=== PATIENT | male | born 1980 | race Caucasian/White ===

== ENCOUNTER 2017-09-08 12:11 | Inpatient (IN) | payer OTHER ==
[~2017-09-08] VITALS: Ht 185.4 cm; Wt 163.3 kg
--- NOTE | 2017-09-08 12:38 | ED DYSPNEA/ASTHMA COMPLAINT ---
History of Present Illness General Chief Complaint: Dyspnea (COPD, CHF, Other) Stated Complaint: SOB Source: patient, family, old records Exam Limitations: no limitations Vital Signs & Intake/Output Vital Signs & Intake/Output Vital Signs Date Time Temp Pulse Resp B/P B/P Pulse O2 O2 Flow FiO2 Mean Ox Delivery Rate 09/10 0638 98.4 63 20 160/80 94 Room Air 09/10 0000 Nasal 3.0L Cannula 09/09 2227 71 138/68 09/09 2226 71 138/68 09/09 2216 98.7 71 20 138/68 92 Nasal Cannula 09/09 1919 94 Nasal 3.0L Cannula 09/09 1600 96 Nasal 3.0L Cannula 09/09 1448 98.7 84 20 140/80 92 Nasal 3.0L Cannula 09/09 1102 Nasal 3.0L Cannula 09/09 1059 68 150/68 09/09 1059 68 150/68 09/09 1059 68 150/68 09/09 1058 68 150/60 09/09 1054 94 Nasal 3.0L Cannula 09/09 0800 94 Nasal 3.0L Cannula ED Intake and Output 09/10 0000 09/09 1200 Intake Total 730 200 Output Total 800 Balance -70 200 Intake, IV 250 0 Intake, Oral 480 200 Number 1 1 Bowel Movements Output, Urine 800 Allergies Coded Allergies: No Known Allergies (09/08/17) Triage Note: PT BIBA FROM CLINIC STATES HE HAS THE FLU, FEVER COUGHING AND DIARRHEA SINCE THURSDAY NIGHT. PT REPORTS SOB AND FLUID "ON MY RIGHT LUNG AND EVERYWHERE" FOR THE LAST COUPLE OF YEARS. MASK PLACED ON PT AT TRIAGE. Triage Nurses Notes Reviewed? yes Onset: Abrupt Duration: day(s): (3), constant Timing: recent history Severity: moderate Activities at Onset: none Associated Symptoms: cough, edema, fever HPI: 37-year-old male history of diabetes presents to ER for evaluation with family brought in by ambulance. For the past 3 days he has had subjective fever chills nonproductive cough shortness of breath and diarrhea. He was diagnosed with the flu today however did not have a flu swab performed. He denies any chest pain however reports the shortness of breath worse after coughing no pain with inspiration. No history of smoking asthma or COPD the patient states she's been following up as an outpatient with his primary care physician after was found incidentally that he had bilateral pleural effusions. No recent travel or immobility he denies abdominal pain nausea or vomiting. (Rafael Hinkle) Reconcile Medications Amlodipine Besylate 10 MG TABLET 1 TAB PO DAILY HTN (Reported) Atorvastatin Calcium (Lipitor) 80 MG TABLET 1 TAB PO DAILY Cholesterol ( Reported) Furosemide (Lasix) 40 MG TABLET 1 TAB PO DAILY fluid overload (Reported) Glipizide (Glipizide ER) 10 MG TAB.ER.24 1 TAB PO DAILY DM (Reported) Hydralazine HCl 100 MG TABLET 1 TAB PO BID htn (Reported) Insulin Glargine,Hum.rec.anlog (Lantus Solostar) 100 UNIT/ML (3 ML) INSULN.PEN 20 UNIT SC QPM DM (Reported) Lisinopril 40 MG TABLET 1 TAB PO DAILY BP (Reported) Metformin HCl 500 MG TABLET 1 TAB PO DAILY HTN (Reported) Metoprolol Tartrate (Lopressor) 100 MG TABLET 1 TAB PO BID HTN (Reported) Sodium Bicarbonate 650 MG TABLET 1 TAB PO BID Hyponatremia (Reported) (Bronwyn BEARD,Dustin Yan) Past History Travel History Traveled to [place] past 21 day No Medical History Any Pertinent Medical History? see below for history EENT: RETINOPOTHY Cardiovascular: hypertension Renal: STAGE 3 RENAL DISEASE Endocrine: DM Surgical History Surgical History: none Psychosocial History What is your primary language Macedonian Tobacco Use: Never used ETOH Use: denies use Illicit Drug Use: denies illicit drug use Family History Hx Contributory? No (Rafael Hinkle) Review of Systems Review of Systems Constitutional: Reports: see HPI, fever. Comments Review of systems: See HPI, All other systems negative. Constitutional, chills fever, no malaise no weight loss HEENT: no sore throat no congestion, no ear pain Cardiovascular: No chest pain , no palpitation Skin: no rashes, no change in skin Respiratory: dyspnea cough no sputum no hemoptysis GI: No nausea no vomiting, diarrhea, no bloating/constipation : No dysuria No hematuria, no frequency Muscle skeletal: No joint pain, no back pain Neurologic: , no headache Heme/endocrine: No bruising Immunology: No lymphadenopathy (Rafael Hinkle) Physical Exam Physical Exam General Appearance: well developed/nourished, awake Respiratory: wheezing Comments: Obese male in moderate acute distress HEENT: Normal EENT exam; PERRL, EOMI. HEAD is atraumatic. moist mucous membranes. Neck: Supple,normal range of motion Back: Nontender, no CVA tenderness. Full range of motion Cardiovascular: Regular rate and rhythms no murmurs rub Respiratory: Chest nontender.There were no bony deformities, no asymmetry. No respiratory distress. Patient speaking in full complete sentences. Crackles to bilateral bases no wheezing Abdomen: Soft, morbidly obese nontender nondistended Extremity: 4+ bilaterally edema b/l, to the right lateral foot there is an open sore with surrouding erythema, no discharge noted, full range of motion of extremities, normal and equal pulses bilaterally, 5 out of 5 strength noted to bilateral upper and lower extremities Neuro: Alert oriented x3, motor sensory normal, There were no obvious focal neurologic abnormalities. Skin: No appreciable rash on exposed skin, skin is warm and dry. Psych: Mood and affect is normal, memory and judgment is normal. Core Measures ACS in differential dx? Yes CVA/TIA Diagnosis No Sepsis Present: No Sepsis Focused Exam Completed? No (Efraín BELCHER,Rafael) Progress Differential Diagnosis: asthma, bronchitis, CHF, COPD, pneumonia, unstable angina Plan of Care: Orders Procedure Date/time Status Nothing by Mouth 09/10 B Active US-THORACENTESIS 09/10 0600 Active PLEURAL PH (GEN) 09/10 0600 Active CULTURE,BODY FLUID 09/10 0600 Active PROTHROMBIN TIME 09/10 0600 Active PHOSPHORUS 09/10 0600 Active MAGNESIUM 09/10 0600 Active HEPATIC FUNCTION PANEL 09/10 0600 Active GLYCOSYLATED HGB 09/10 0600 Active CYTOLOGY SPECIMEN 09/10 0600 Active CBC WITHOUT DIFFERENTIAL 09/10 0600 Active CALCIUM 09/10 0600 Active BODY FLUID LDH 09/10 0600 Active BODY FLUID CELL COUNT 09/10 0600 Active BODY FLUID GLUCOSE 09/10 0600 Active BODY FLUID CHOLESTEROL 09/10 0600 Active BASIC ELECTROLYTES PLUS BUN&CR 09/10 0600 Active NEUTRO CYTO ANTIBODY Ref$ 09/10 0600 Active Lab Add-on Test 09/10 UNK Active LOWER RESPIRATORY CULTURE 09/09 1536 Active URINE LYTES, SPOT 09/09 1458 Active PROTHROMBIN TIME 09/09 1454 Complete ECHOCARDIOGRAM 09/09 1409 Active URINALYSIS 09/09 1215 Complete RT: Evaluation 09/09 1053 Active CREATINE PHOSPHOKINASE 09/09 0900 Complete THERAPIST ORDERS 09/09 UNK Complete OXYGEN SETUP (GEN) 09/09 UNK Complete Lab Add-on Test 09/09 UNK Active Nursing Misc 09/09 UNK Active Current Medications Sig/Jozef Start time Last Medication Dose Stop Time Status Admin Silver Sulfadiazine 1 MARLON DAILY 09/10 1000 AC (Silvadene Cream 50GM ) Albuterol Sulfate 3 ML BID 09/09 2200 AC 09/09 (Proventil) 1919 Atorvastatin Calcium 80 MG 1700 09/09 1700 AC 09/09 (Lipitor) 1558 Amlodipine Besylate 10 MG DAILY 09/09 1000 AC 09/09 (Norvasc) 1059 Azithromycin 500 MG DAILY 09/09 1000 AC 09/09 (Zithromax) 1101 Dextrose/Water 250 ML (D5W) Calcium/Vitamin D 500 MG DAILY 09/09 1000 AC 09/09 (Oscal-D 500MG 1058 (Osyter Shell)) Ceftriaxone Sodium 1,000 MG DAILY 09/09 1000 AC 09/09 (Rocephin) 1100 Insulin Aspart 0 TIDAC 09/09 0800 AC 09/09 (NovoLOG) 0837 Hydralazine HCl 100 MG BID 09/08 2200 AC 09/09 (Apresoline) 2227 Insulin Aspart 0 AT BEDTIME 09/08 2200 AC 09/08 (NovoLOG) 2155 Insulin Detemir 10 UNITS QPM 09/08 2200 AC 09/09 (Levemir) 2227 Metoprolol Tartrate 100 MG BID 09/08 2200 AC 09/09 (Lopressor) 2226 Sodium Bicarbonate 650 MG BID 09/080 AC 09/09 (Sodium Bicarb 325MG 2226 Tab) Laboratory Tests 09/09/17 1605: PT 11.6, INR 1.06 09/09/17 1435: Urine Color YEL, Urine Clarity HAZY H, Urine pH 6.0, Ur Specific Tully 1.025, Urine Protein >=300 H, Urine Ketones NEG, Urine Nitrite NEG, Urine Bilirubin NEG, Urine Urobilinogen 0.2, Ur Leukocyte Esterase NEG, Ur Microscopic SEDIMENT EXAMINED, Urine RBC RARE, Urine WBC RARE, Urine Bacteria PACKD H, Hyaline Casts 1-3 H, Granular Casts 5-10 H, Urine Hemoglobin SMALL H, Urine Glucose 500 H 09/09/17 0900: Anion Gap 11, Estimated GFR 23 L, BUN/Creatinine Ratio 16.8, Total Bilirubin 0.2, Direct Bilirubin 0.2, AST 80 H, ALT 45, Alkaline Phosphatase 67, Creatine Kinase 2832 H, Total Protein 5.5 L, Albumin 2.4 L, CBC w Diff NO MAN DIFF REQ , RBC 3.61 L, MCV 87.7, MCH 28.8, MCHC 32.9 L, RDW 13.4, MPV 9.2, Gran % 79.6 H, Lymphocytes % 10.1 L, Monocytes % 10.2 H, Eosinophils % 0, Basophils % 0.1, Absolute Granulocytes 5.0, Absolute Lymphocytes 0.6 L, Absolute Monocytes 0.6, Absolute Eosinophils 0, Absolute Basophils 0 Microbiology 09/10 0600 BODY FLUID: Body Fluid Culture - COLB 09/10 0600 BODY FLUID: Gram Stain - COLB 09/09 1536 LOWER RESP: Respiratory Culture - COLB 09/09 1536 LOWER RESP: Gram Stain - COLB Labs ordered old records read patient medicated with Lasix, Solu-Medrol breathing treatment with improvement in breathing On repeat evaluation patient reports improvement in breathing pending ultrasound patient has been extremely difficult blood draw Rocephin azithromycin ordered discussed with Dr. Barnhart agrees with plan Discussed with the patient and his father all his labs old records reviewed patient's last creatinine was 1.8 CASE D/W DR COREA WILL ADMIT Diagnostic Imaging: Viewed by Me: Radiology Read, Ultrasound. Discussed w/RAD: Radiology Read, Ultrasound. Radiology Impression: PATIENT: ERIC STEVENS PRESENT AGE: 37 PATIENT ACCOUNT NO: [id number] : 79 LOCATION: [facility] ORDERING PHYSICIAN: Rafael BELCHER SERVICE DATE: 09/08/17 EXAM TYPE: US - US-EXT BILAT VENOUS DOPPLER EXAMINATION: BILATERAL LOWER EXTREMITY DEEP VENOUS ULTRASOUND CLINICAL INFORMATION: Shortness of breath and leg swelling COMPARISON : No similar prior examinations are available for comparison. TECHNIQUE: Duplex Doppler imaging with compression maneuvers were performed of the bilateral lower extremity deep venous systems. Examination mildly limited secondary to patient body habitus. FINDINGS: The bilateral visualized common femoral, femoral and popliteal veins demonstrate normal compressibility and color flow without evidence of venous thrombosis. Visualized portions of the bilateral calf veins demonstrate normal color fill-in suggesting patency. There is no evidence of a Kan's cyst. IMPRESSION: No evidence of deep venous thrombosis involving the bilateral lower extremities. DICTATED BY: Luis Alonso MD DATE/TIME DICTATED: 09/08/171511 JEWISH THOUGHT PROFESSOR:BRIANNA DATE/TIME TRANSCRIBED:09/08/171511 CONFIDENTIAL, DO NOT COPY WITHOUT APPROPRIATE AUTHORIZATION. <Electronically signed in Other Vendor System> SIGNED BY: Luis Alonso MD 09/08/171516, PATIENT: ERIC STEVENS PRESENT AGE: 37 PATIENT ACCOUNT NO: [id number] : 79 LOCATION: [facility] ORDERING PHYSICIAN: Rafael BELCHER SERVICE DATE: 09/08/17 EXAM TYPE: RAD - XRY-PORTABLE CHEST XRAY EXAMINATION: XR PORTABLE CHEST CLINICAL INFORMATION: Shortness of breath, fever, and cough COMPARISON: Chest x-ray 08/12/[address] 08/20/2017. TECHNIQUE: Portable frontal view of the chest was obtained. FINDINGS: Worsening bibasilar and left midlung consolidation with possible associated pleural effusions. There is central vascular congestion. Cardiac silhouette is enlarged and unchanged. No pneumothorax. No acute osseous findings. IMPRESSION: Worsening bibasilar and left midlung consolidation concerning for multifocal pneumonia in light of the clinical history. Possible small pleural effusions. Radiographic follow-up recommended to document resolution. DICTATED BY: Dustin Bui MD DATE/TIME DICTATED:09/08/171436 JEWISH THOUGHT PROFESSOR:BRIANNA DATE/TIME TRANSCRIBED:1436 CONFIDENTIAL, DO NOT COPY WITHOUT APPROPRIATE AUTHORIZATION. < Electronically signed in Other Vendor System> SIGNED BY: Dustin Bui MD 09/08/17 1443 Initial ED EKG: normal intervals, normal p-waves, normal QRS complex, normal sinus rhythm (70) Rhythm Strip: normal sinus rhythm (Rafael Hinkle) Departure Departure Time of Disposition: 1627 Disposition: STILL A PATIENT Condition: Stable Clinical Impression Primary Impression: Pneumonia Secondary Impressions: Acute on chronic renal insufficiency, Pleural effusion Referrals: Susu Jones DO (PCP/Family) Departure Forms: Customer Survey General Discharge Information Admission Note Spoke With: Marcellus Corea MD Documentation of Exam: Documentation of any treatments & extenuating circumstances including Concerns Regarding Discharge (functional status, medication knowledge or non-compliance, living conditions, etc.) that warrant an admission rather than observation: iv abx, resp tx prn, pulm consul, trend labs and cultures premature discharge would be medically harmful (Rafael Hinkle) PA/COMMUNICATIONS COORDINATOR Co-Sign Statement Statement: ED Attending supervision documentation- [] I saw and evaluated the patient. I have also reviewed all the pertinent lab results and diagnostic results. I agree with the findings and the plan of care as documented in the PA's/COMMUNICATIONS COORDINATOR's documentation. [x] I have reviewed the ED Record and agree with the PA's/COMMUNICATIONS COORDINATOR's documentation. [] Additions or exceptions (if any) to the PAs/COMMUNICATIONS COORDINATOR's note and plan are summarized below: [] (Bronwyn BEARD,Dustin Yan) Critical Care Note Critical Care Note Critical Care Time: non-applicable (Rafael Hinkle)
--- NOTE | 2017-09-08 14:43 | RADIOLOGY REPORT ---
EXAMINATION: XR PORTABLE CHEST CLINICAL INFORMATION: Shortness of breath, fever, and cough COMPARISON: Chest x-ray 08/12/[address] 08/20/2017. TECHNIQUE: Portable frontal view of the chest was obtained. FINDINGS: Worsening bibasilar and left midlung consolidation with possible associated pleural effusions. There is central vascular congestion. Cardiac silhouette is enlarged and unchanged. No pneumothorax. No acute osseous findings. IMPRESSION: Worsening bibasilar and left midlung consolidation concerning for multifocal pneumonia in light of the clinical history. Possible small pleural effusions. Radiographic follow-up recommended to document resolution.
--- NOTE | 2017-09-08 15:17 | ULTRASOUND REPORT ---
EXAMINATION: BILATERAL LOWER EXTREMITY DEEP VENOUS ULTRASOUND CLINICAL INFORMATION: Shortness of breath and leg swelling COMPARISON: No similar prior examinations are available for comparison. TECHNIQUE: Duplex Doppler imaging with compression maneuvers were performed of the bilateral lower extremity deep venous systems. Examination mildly limited secondary to patient body habitus. FINDINGS: The bilateral visualized common femoral, femoral and popliteal veins demonstrate normal compressibility and color flow without evidence of venous thrombosis. Visualized portions of the bilateral calf veins demonstrate normal color fill-in suggesting patency. There is no evidence of a Kan's cyst. IMPRESSION: No evidence of deep venous thrombosis involving the bilateral lower extremities.
[2017-09-08 15:39] LABS: ABSOLUTE BASOPHIL COUNT 0 /CUMM (0.0-0.2); ABSOLUTE EOSINOPHIL COUNT 0 /CUMM (0.0-0.7); ABSOLUTE GRANULOCYTE CT 8.1 /CUMM (1.4-6.5); ABSOLUTE LYMPH COUNT 0.6 /CUMM (1.2-3.4); ABSOLUTE MONOCYTE COUNT 0.4 /CUMM (0.10-0.60); BASOPHIL % 0.2 % (0.0-2.0); EOSINOPHIL % 0.1 % (0-5); MEAN CORPUSCULAR HGB 29.6 PG (27.0-31.0); MEAN CORPUSCULAR HGB CONC 33.8 G/DL (33.0-37.0); MEAN CORPUSCULAR VOLUME 87.6 FL (80.0-94.0); MEAN PLATELET VOLUME 9.6 FL (7.4-10.4); PLATELET COUNT 288 /CUMM (130-400); RED BLOOD CELL CT 3.77 /CUMM (4.70-6.10); WHITE BLOOD CELL COUNT 9.2 /CUMM (4.8-10.8)
[2017-09-08 15:56] LABS: GRANULOCYTE % 88.3 % (42.2-75.2)
--- NOTE | 2017-09-08 16:59 | History & Physical ---
Beto BEARD,[facility] 09/08/17 0152: General Information and HPI MD Statement: I have seen and personally examined ERIC STEVENS and documented this H&P. The patient is a 37 year old M who presented with a patient stated chief complaint of [sob, cough, diarrhea]. Source of Information: patient, family History of Present Illness: 37 yo M pmhx of LE swelling, hld, and htn presenting for cough and diarrhea. The patient states that he started having symptoms on Thursday. The patient states that he went to the PCPs PA today. In office he was found to have a temperature 101.5 and his oxygen saturation was 80-90%. The patient states that he listened to his lungs and then decided to call to him was to bring him into the hospital. He complains of shortness of breath, cough, fever, chills, nausea , nasal and chest congestionand, muscle aches, abdominal pain and diarrhea which started Thursday. He states that the diarrhea has occurred daily. He states that he has not noticed any blood. The patient's father has noted yellowish green stool. The patient's mother states that she was sick last week and was treated with azithromycin. The patient's father also has upper respiratory symptoms at this time. The patient states that he was taking care of his nephew who is also now sick. The patient denies any headaches, chest pain, dysuria, joint pain. The patient currently sitting comfortably on oxygen however he is on any oxygen at home. He states that he did get the flu shot this year. Of note the patient states that he has a history of hypertension and was admitted for hypertension. He states that he was given lisinopril and developed ?LUCA/ARF. He has been followed by nephrology since then for his chronic kidney disease. The patient's mother states that the patient has missed the last 2 days of Lasix. The patient's mother also states that he has had no echocardiogram within the past couple weeks. Allergies/Medications Allergies: Coded Allergies: No Known Allergies (09/08/17) Past History Travel History Traveled to [place] past 21 day No Medical History EENT: RETINOPOTHY Cardiovascular: hypertension Renal: STAGE 3 RENAL DISEASE Endocrine: DM Surgical History Surgical History: none Past Family/Social History Psychosocial History ETOH Use: denies use Illicit Drug Use: denies illicit drug use Review of Systems Review of Systems Constitutional: Reports: see HPI. Exam & Diagnostic Data Last 24 Hrs of Vital Signs/I&O Vital Signs Date Time Temp Pulse Resp B/P B/P Pulse O2 O2 Flow FiO2 Mean Ox Delivery Rate 09/08 2058 98.1 09/08 2042 70 20 157/73 93 Nasal 3.0L Cannula 09/08 1847 98.9 70 18 153/67 96 Nasal 3.0L Cannula 09/08 1500 Nasal 3.0L Cannula 09/08 1426 98.5 73 18 163/73 91 Nasal 3.0L Cannula 09/08 1412 91 Nasal 3.0L Cannula 09/08 1221 98.4 67 18 164/68 90 Room Air Intake & Output 09/08 1600 09/08 0800 09/08 0000 Intake Total 240 Output Total Balance 240 Intake, Oral 240 Patient 360 lb Weight Weight Estimated Measurement Method Physical Exam General Appearance Alert, Oriented X3, Cooperative, No Acute Distress Cardiovascular Regular Rate, Normal S1, Normal S2 Lungs diffuse decreased breath sounds, diffuse inspiratory rhonchi, left lower base crackles. Abdomen Normal Bowel Sounds, Soft, No Tenderness Extremities 4+ lower extremity edema Vascular 2+ radial pulses Assessment/Plan Assessment: A: 37 yo M pmhx of LE swelling, hld, and htn presenting for cough and diarrhea found to have bilateral pleural effusions and pneumonia. P: # Bilateral lower lobe pneumonia with bilateral pleural effusions CXR: Worsening bibasilar and left midlung consolidation concerning for multifocal pneumonia, Possible small pleural effusions. -cont ceftriazone azithro -f/u pulm consult -f/u urinary antigens -trc nebs #Bilateral LE edema ProBNP 2170 Pt has missed 2 days of home lasix -obtain echo results -monitor renal function -assess and give lasix as needed # LUCA on CKD Bun/cr 42/2.6 -f/u neprhology consult -cont sodium bicarb #hyponatremia Na 131 -cont to monitor as pt treated with lasix #hypocalcemia -f/u vit d levels -supplement if needed #elevated AST AST 94 -monitor LFTs #chronic medical conditions: hld, htn -cont amlodipine, atorvastatin, #DVT ppx #FULL CODE As Ranked By This Provider Problem List: 1. Pleural effusion 2. Acute on chronic renal insufficiency 3. Pneumonia 4. Hyponatremia 5. Hypocalcemia Core Measures/Misc (02/15) Acute Coronary Syndrome ACS Diagnosis: No Congestive Heart Failure Congestive Heart Failure Diagnosis No Cerebrovascular Accident CVA/TIA Diagnosis: No VTE (View Protocol) VTE Risk Factors Acute Medical Illness No Mechanical VTE Prophylaxis d/t Other No VTE Pharm Prophylaxis d/t NA PharmProphylax ordered Sepsis (View protocol) Sepsis Present: No Marcellus Montenegro MD 09/08/17 0634: Attending MD Review Statement Attending Statement Attending MD Statement: examined this patient, discuss w/resident/PA/SYSTEMS ADMINISTRATOR, agreed w/resident/PA/SYSTEMS ADMINISTRATOR, reviewed EMR data (avail) Attending Assessment/Plan: 37M PMH HTN, IDDM, morbid obesity, peripheral arterial disease, currently undergoing workup for bilateral pleural effusions with unknown etiology, presenting with 2 days of fever, chills, productive cough, malaise, and loose stools, found to have multilobar pneumonia on imaging with bilateral pleural effusions. +Sick contact with mother having pneumonia last week treated as outpatient with Azithromycin. Reports significant LE swelling that has been chronic. Also has right foot ulcer. Lungs decreased breath sounds with mild wheezing bilaterally and 3+ non-pitting edema. 1. Bilateral lower lobe pneumonia 2. Bilateral pleural effusions 3. Bilateral LE edema Plan - Admit to general medicine - Ceftriaxone and Azithromycin - Sputum culture, S.pneumo and Legionella antigens - Pulmonary, nephrology, wound consults - Continue Lasix - Nebulizer treatments - Will consider thoracentesis based on pulmonary recommendations - Continue home medications - DVT PPx Luís BEARD,[facility] 09/08/172050: General Information and HPI Allergies/Medications Home Med list Amlodipine Besylate 5 MG TABLET 5 MG PO DAILY BLOOD PRESSURE . Atorvastatin Calcium (Lipitor) 80 MG TABLET 1 TAB PO DAILY Cholesterol ( Reported) Furosemide (Lasix) 80 MG TABLET 1 TAB PO DAILY EDEMA PLEASE TAKE 1 TAB (80MG DAILY). IF NEEDED PLEASE TAKE TWICE A DAY (180MG TOTAL). Hydralazine HCl 50 MG TABLET 100 MG PO TID blood pressure . Insulin Glargine,Hum.rec.anlog (Lantus Solostar) 100 UNIT/ML (3 ML) INSULN.PEN 15 UNIT SC QPM DIABETES PLEASE INCREASE TO 20 UNITS IF BLOOD SUGARS CONSISTENTLY >200 Lisinopril 40 MG TABLET 1 TAB PO DAILY BP (Reported) Metoprolol Tartrate (Lopressor) 100 MG TABLET 1 TAB PO BID HTN (Reported) Sevelamer Carbonate (Renvela) 800 MG TABLET 800 MG PO WITH MEALS KIDNEY . Sodium Bicarbonate 325 MG TABLET 4 TAB PO BID KIDNEY . Resident Review Statement Resident Statement: examined this patient, discussed with product development intern Other Findings: DEZrDru Sumner is a pleasant 37-year-old gentleman with past medical history of hypertension, renal disease, diabetes who presented to the emergency department on 09/08/2017 complaining of shortness of breath, cough and being febrile at home up to a temperature of 101.5. Patient has been well compliant on medications. He states that he was in his usual state of health until Thursday09/04/2017 where he may have been exposed to his mother would been recovering frmo a URI (was on a Z-pack). Over the course of the weekend he continued to feel congested until he decided to call his PA who works at [employer] who prompted him to come to the emergency department. During the time of our clinical interaction the patient was comfortable that appeared that he was in mild distress. He was being maintained on supplemental oxygen. He also endorsed some muscle aches and occasional fevers. He also endorses abdominal pain and recurrent diarrhea owing to some food that he may have eaten over the course of the weekend. He denies any recreational drug use. He has no drug allergies. R patient denied any nausea or vomiting but did endorse fever up to 101.5. Denies any hematochezia and describes his stool is liquid. No recent antibiotics. E Physical examination temperature 98.4. Pulse 67. Respirations 18. Blood pressure 164/68. Pulse 90. Saturating on room air. Subsequently started on 3 L of nasal cannula. Obese male in moderate acute distress HEENT: Normal EENT exam; PERRL, EOMI. HEAD is atraumatic. moist mucous membranes. Neck: Supple,normal range of motion Back: Nontender, no CVA tenderness. Full range of motion Cardiovascular: Regular rate and rhythms no murmurs rub Respiratory: Chest nontender.Inspiratory Rhonhi in Left Lung. Abdomen: Soft, morbidly obese nontender nondistended Extremity: 3+ bilaterally edema b/l, to the right lateral foot there is an open sore with surrouding erythema, no discharge noted, full range of motion of extremities, normal and equal pulses bilaterally, 5 out of 5 strength noted to bilateral upper and lower extremities. Foor Ulcer noted on Left foot, draining serous liquid. No Erythma noted. Neuro: Alert oriented x3, motor sensory normal, There were no obvious focal neurologic abnormalities. Skin: No appreciable rash on exposed skin, skin is warm and dry. Psych: Mood and affect is normal, memory and judgment is normal. Father and mother present in room. L WBC 9.2. H&H 11.1 and 32.0. Platelets 288. ProBNP 2170. Sodium 131. I Imaging as above. X-Ray showing worsening bibasilar left midlung consolidation concerning for multifocal pneumonia. Possible small pleural effusions. Venous Doppler IMPRESSION: No evidence of deep venous thrombosis involving the bilateral lower extremities. A Mr. Sumner is a pleasant 37-year-old gentleman with past medical history of hypertension, renal disease, diabetes who presented to the emergency department on 09/08/2017 complaining of shortness of breath, cough and being febrile at home up to a temperature of 101.5. Will admit the patient to general medicine addressed the following problems. History of hypertension on multiple medications. Bilateral lower lobe pneumonia. Generalized worsening lower extremity edema. History of diabetes. Recent diarrhea. Hyponatremia. Continue ceftriaxone and azithromycin. Follow-up cultures. If febrile overnight or in the morning consider ID consultation. Daily weights and monitor ins and outs. Continue home medication of hydralazine, amlodipine, metoprolol, lisinopril. Reassess fluid hydration in a.m. and consider additional Lasix. Consult nephrology for recommendations. Assess for worsening diarrhea. If occurs in the a.m. consider stool studies. Metformin can also be associated with diarrhea. Begin patient on NovoLog sliding scale 3 times a day at bedtime. Levemir 10 units at bedtime. Based on fingersticks in a.m. May increase accordingly. Continue sodium bicarbonate supplementation. Monitor NA in a.m. DVT prophylaxis begin the patient on heparin subcutaneous. Patient is a full code. units at bedtime. Based on fingersticks in a.m. May increase accordingly. Continue sodium bicarbonate supplementation. Monitor NA in a.m. DVT prophylaxis begin the patient on heparin subcutaneous. Patient is a full code.
--- NOTE | 2017-09-08 18:59 | Admission Certification ---
Admission Certification Certification Statement - As attending physician, I certify that at the time of - admission, based on clinical presentation, severity of - symptoms, need for further diagnostic testing and - therapeutic interventions, and risk of adverse outcomes - without in-hospital treatment, in my clinical assessment, - this patient requires an acute hospital stay for a minimum - of two nights or longer. I have also considered psychsocial - factors such as support system, advanced age, financial - issues, cognitive issues, and failed out-patient treatments, - past re-admission history, safety of patient, and lack of - compliance as applicable. Specific rationale supporting this admission is: Multilobar pneumonia with bilateral pleural effusions
[2017-09-08] MEDS ORDERED: AMLODIPINE BESY10 M1 PO (19:07)
[2017-09-08] MEDS ORDERED: HYDRALAZINE HC100 M1 PO (19:07)
[2017-09-08] MEDS ORDERED: LASIX40 M1 PO (19:07)
[2017-09-08] MEDS ORDERED: LOPRESSOR100 M1 PO (19:07)
[2017-09-08] MEDS ORDERED: LANTUS SOL100 UNIT/1 SC (19:08)
[2017-09-08] MEDS ORDERED: METFORMIN HCL500 M3 PO (19:08)
[2017-09-08] MEDS ORDERED: GLUCOTROL10 M1 PO (19:08)
[2017-09-08] MEDS ORDERED: GLIPIZIDE ER10 M1 PO (19:09)
[2017-09-08] MEDS ORDERED: LIPITOR80 M1 PO (19:10)
[2017-09-08] MEDS ORDERED: SODIUM BICARBO650 M1 PO (19:11)
[2017-09-08] MEDS ORDERED: LISINOPRIL40 M1 PO (20:57)
[2017-09-08 21:47] VITALS: BP 160/64
[2017-09-09 06:48] VITALS: BP 170/20
--- NOTE | 2017-09-09 08:57 | Cons- Pulmonary ---
General Information and HPI Consulting Request Date of Consult: 09/09/17 Requested By: Guido Reason for Consult: Hypoxic respiratory failure History of Present Illness: Patient is 37-year-old diabetic with chronic kidney disease admitted with increasing shortness breath and fever. He's had a chronic right pleural effusion and was to have had a diagnostic thoracentesis. He presented with increasing shortness breath cough fever. He's had a draining blister of his right lateral foot for several weeks. He has significant neuropathy and did not notice this more date its onset. He's gained over 30 pounds in the past several weeks. Allergies/Medications Allergies: Coded Allergies: No Known Allergies (09/08/17) Home Med List: Amlodipine Besylate 10 MG TABLET 1 TAB PO DAILY HTN (Reported) Atorvastatin Calcium (Lipitor) 80 MG TABLET 1 TAB PO DAILY Cholesterol ( Reported) Furosemide (Lasix) 40 MG TABLET 1 TAB PO DAILY fluid overload (Reported) Glipizide (Glipizide ER) 10 MG TAB.ER.24 1 TAB PO DAILY DM (Reported) Hydralazine HCl 100 MG TABLET 1 TAB PO BID htn (Reported) Insulin Glargine,Hum.rec.anlog (Lantus Solostar) 100 UNIT/ML (3 ML) INSULN.PEN 20 UNIT SC QPM DM (Reported) Lisinopril 40 MG TABLET 1 TAB PO DAILY BP (Reported) Metformin HCl 500 MG TABLET 1 TAB PO DAILY HTN (Reported) Metoprolol Tartrate (Lopressor) 100 MG TABLET 1 TAB PO BID HTN (Reported) Sodium Bicarbonate 650 MG TABLET 1 TAB PO BID Hyponatremia (Reported) Review of Systems Review of Systems Constitutional: Reports: chills, fever. Cardiovascular: Reports: edema, orthopena, peripheral edema. Denies: chest pain. Respiratory: Reports: cough, short of breath, sputum production. Denies: hemoptysis. GI: Reports: diarrhea. Past History Travel History Traveled to [place] past 21 day No Medical History Blood Transfusion Hx: No Neurological: NEUROPATHY (DIABETIC) EENT: RETINOPOTHY Cardiovascular: hypertension Respiratory: NONE Gastrointestinal: NONE Hepatic: NONE Renal: STAGE 3 RENAL DISEASE Musculoskeletal: NONE Psychiatric: NONE Endocrine: DM Blood Disorders: NONE Cancer(s): NONE PEARL HAND/Reproductive: NONE Surgical History Surgical History: 1 Psychosocial History Where Do You Live? Home Smoking Status: Never Smoked ETOH Use: denies use Illicit Drug Use: denies illicit drug use Exam & Diagnostic Data Last 24 Hrs of Vital Signs/I&O Vital Signs Date Time Temp Pulse Resp B/P B/P Pulse O2 O2 Flow FiO2 Mean Ox Delivery Rate 09/09 0648 98.2 64 20 170/20 94 Nasal 3.0L Cannula 09/09 0021 98.7 71 18 170/90 09/09 0021 98.7 71 18 170/90 09/09 0000 93 Nasal 3.0L Cannula 09/08 2201 Nasal 3.0L Cannula 09/08 2147 97.6 72 18 160/64 93 Nasal 3.0L Cannula 09/08 2059 98.1 09/08 2042 70 20 157/73 93 Nasal 3.0L Cannula 09/08 1847 98.9 70 18 153/67 96 Nasal 3.0L Cannula 09/08 1500 Nasal 3.0L Cannula 09/08 1426 98.5 73 18 163/73 91 Nasal 3.0L Cannula 09/08 1412 91 Nasal 3.0L Cannula 09/08 1221 98.4 67 18 164/68 90 Room Air Intake & Output 09/09 1600 09/09 0800 09/09 0000 Intake Total 160 Output Total Balance 160 Intake, IV 10 Intake, Oral 150 Patient 360 lb Weight Weight Reported by Patient Measurement Method Oxygen saturation 3 L 94% exam of his chest shows diminished breath sounds at the bases and scattered crackles cardiac exam shows a regular S1 and S2 abdomen soft nontender there is symmetrical pitting edema over the right lateral foot is evidence of a blister which has ruptured with evidence of a diabetic foot ulcer with periwound erythema dorsalis pedis and posterior tibial pulses are palpable Last 48 Hrs of Labs/Bryce: Laboratory Tests 09/08/17 2220: Lactic Acid 0.9 09/08/17 2100: Sodium Cancelled 09/08/17 1520: Anion Gap 12, Estimated GFR 28 L, BUN/Creatinine Ratio 16.2, Glucose 119 H, Lactic Acid 0.5 L, Calcium 7.9 L, Total Bilirubin 0.5, AST 94 H, ALT 42, Alkaline Phosphatase 70, Troponin I 0.04, Yey-O-Sjkowhrezln Pept 2170 H, Total Protein 5.7 L, Albumin 2.6 L, Globulin 3.1, Albumin/Globulin Ratio 0.8 L, 25- OH Vitamin D Total 15.8 L, CBC w Diff NO MAN DIFF REQ, RBC 3.77 L, MCV 87.6, MCH 29.6, MCHC 33.8, RDW 14.0, MPV 9.6, Gran % 88.3 H, Lymphocytes % 7.0 L, Monocytes % 4.4, Eosinophils % 0.1, Basophils % 0.2, Absolute Granulocytes 8.1 H, Absolute Lymphocytes 0.6 L, Absolute Monocytes 0.4, Absolute Eosinophils 0, Absolute Basophils 0 09/08/17 1225: Sodium Cancelled, Potassium Cancelled, Chloride Cancelled, Carbon Dioxide Cancelled, Anion Gap Cancelled, BUN Cancelled, Creatinine Cancelled, BUN/ Creatinine Ratio Cancelled, Glucose Cancelled, Calcium Cancelled, Total Bilirubin Cancelled, AST Cancelled, ALT Cancelled, Alkaline Phosphatase Cancelled, Gzb-G-Adflguqpybn Pept Cancelled, Total Protein Cancelled, Albumin Cancelled, Globulin Cancelled, Albumin/Globulin Ratio Cancelled Microbiology 09/08 2350 URINE ROUT: Legionella Antigen - COMP 09/08 2350 URINE ROUT: Streptococcus pneumoniae Antigen (M - COMP 09/08 1225 NASOPHARYN: Influenza Virus A & B Rapid Smear - COMP Assessment/Plan Impression/Plan: 37-year-old gentleman with chronic kidney disease has had heavy 30 pound weight gain admitted with hypoxic respiratory failure fever and chest x-ray suggestive of bilateral pulmonary infiltrates and consolidation. BNP is greater than 2000. Differential is pneumonia versus congestive heart failure and volume overload. Concern is raised over her right foot soft tissue infection as possible cause of his fever. Recommendations: Diagnostic and therapeutic right thoracentesis. Podiatric evaluation for right diabetic foot ulcer with concern for soft tissue skin infection. Continue current antibiotics pending thoracentesis. Cardiac ultrasound and evaluation in conjunction with nephrology and cardiac consultation. Consult Acknowledgment - Thank you for your consult request.
[2017-09-09 09:20] LABS: ABSOLUTE BASOPHIL COUNT 0 /CUMM (0.0-0.2); ABSOLUTE EOSINOPHIL COUNT 0 /CUMM (0.0-0.7); ABSOLUTE LYMPH COUNT 0.6 /CUMM (1.2-3.4); ABSOLUTE MONOCYTE COUNT 0.6 /CUMM (0.10-0.60); BASOPHIL % 0.1 % (0.0-2.0); EOSINOPHIL % 0 % (0-5); GRANULOCYTE % 79.6 % (42.2-75.2); HEMATOCRIT 31.6 % (42-52); MEAN CORPUSCULAR HGB 28.8 PG (27.0-31.0); MEAN CORPUSCULAR HGB CONC 32.9 G/DL (33.0-37.0); MEAN CORPUSCULAR VOLUME 87.7 FL (80.0-94.0); MEAN PLATELET VOLUME 9.2 FL (7.4-10.4); PLATELET COUNT 294 /CUMM (130-400); RBC DISTRIBUTION WIDTH 13.4 % (11.5-14.5); RED BLOOD CELL CT 3.61 /CUMM (4.70-6.10); WHITE BLOOD CELL COUNT 6.3 /CUMM (4.8-10.8)
--- NOTE | 2017-09-09 09:27 | PN- Housestaff ---
Subjective Follow-up For: Bilateral lower lobe pneumonia with pleural effusions Lower extremity edema Hyponatremia LUCA on CKD Subjective: No acute events overnight. States SOB slightly improved. States edema is the same. Review of Systems Constitutional: Reports: see HPI. Objective Last 24 Hrs of Vital Signs/I&O Vital Signs Date Time Temp Pulse Resp B/P B/P Pulse O2 O2 Flow FiO2 Mean Ox Delivery Rate 09/09 1448 98.7 84 20 140/80 92 Nasal 3.0L Cannula 09/09 1102 Nasal 3.0L Cannula 09/09 1059 68 150/68 09/09 1059 68 150/68 09/09 1059 68 150/68 09/09 1058 68 150/60 09/09 1054 94 Nasal 3.0L Cannula 09/09 0800 94 Nasal 3.0L Cannula 09/09 0648 98.2 64 20 170/20 94 Nasal 3.0L Cannula 09/09 0021 98.7 71 18 170/90 09/09 0021 98.7 71 18 170/90 09/09 0000 93 Nasal 3.0L Cannula 09/08 2201 Nasal 3.0L Cannula 09/08 2147 97.6 72 18 160/64 93 Nasal 3.0L Cannula 09/08 2059 98.1 09/08 2042 70 20 157/73 93 Nasal 3.0L Cannula 09/08 1847 98.9 70 18 153/67 96 Nasal 3.0L Cannula Intake & Output 09/09 1600 09/09 0800 09/09 0000 Intake Total 730 200 160 Output Total 800 Balance -70 200 160 Intake, IV 250 0 10 Intake, Oral 480 200 150 Number 1 1 Bowel Movements Output, Urine 800 Patient 360 lb Weight Weight Reported by Patient Measurement Method Physical Exam General Appearance: Alert, Oriented X3, Cooperative, No Acute Distress, obese Cardiovascular: Regular Rate, Normal S1, Normal S2 Lungs: decreased lung sounds and crackles in mid + lower lung bases b/l. Extremities: 4+ lower extremity edema, right foot diabetic ulcer Vascular: 2+ radial pulses Current Medications: Current Medications Sig/Jozef Start time Last Medication Dose Route Stop Time Status Admin Albuterol Sulfate 3 ML BID 09/09 2200 AC 09/09 INH 1046 Amlodipine Besylate 10 MG DAILY 09/09 1000 AC 09/09 PO 1059 Atorvastatin Calcium 80 MG 1700 09/09 1700 AC 09/09 PO 1558 Azithromycin 500 MG DAILY 09/09 1000 AC 09/09 Dextrose/Water 250 ML IV 1101 Calcium/Vitamin D 500 MG DAILY 09/09 1000 AC 09/09 PO 1058 Ceftriaxone Sodium 1,000 MG DAILY 09/09 1000 AC 09/09 IV 1100 Furosemide 40 MG DAILY 09/09 1000 CAN IV Heparin Sodium 5,000 UNIT Q8 09/09 1445 AC 09/09 (Porcine) SC 09/10 0600 1557 Hydralazine HCl 100 MG BID 09/08 2200 AC 09/09 PO 1059 Insulin Aspart 0 TIDAC 09/09 0800 AC 09/09 GA 0837 Insulin Aspart 0 AT BEDTIME 09/08 220 AC 09/08 GA 2155 Insulin Detemir 10 UNITS QPM 09/08 220 AC 09/08 GA 2156 Lisinopril 40 MG DAILY 09/09 1000 DC 09/09 PO 1058 Metoprolol Tartrate 100 MG BID 09/08 2200 AC 09/09 PO 1059 Sodium Bicarbonate 650 MG BID 09/08 2200 AC 09/09 PO 1057 Sodium Chloride 1,000 ML Q13H 09/09 1445 AC 09/09 IV 1558 Last 24 Hrs of Lab/Bryce Results Last 24 Hrs of Labs/Mics: Laboratory Tests 09/09/17 1605: PT Pending, INR Pending 09/09/17 0900: Anion Gap 11, Estimated GFR 23 L, BUN/Creatinine Ratio 16.8, Total Bilirubin 0.2, Direct Bilirubin 0.2, AST 80 H, ALT 45, Alkaline Phosphatase 67, Creatine Kinase 2832 H, Total Protein 5.5 L, Albumin 2.4 L, CBC w Diff NO MAN DIFF REQ , RBC 3.61 L, MCV 87.7, MCH 28.8, MCHC 32.9 L, RDW 13.4, MPV 9.2, Gran % 79.6 H, Lymphocytes % 10.1 L, Monocytes % 10.2 H, Eosinophils % 0, Basophils % 0.1, Absolute Granulocytes 5.0, Absolute Lymphocytes 0.6 L, Absolute Monocytes 0.6, Absolute Eosinophils 0, Absolute Basophils 0 09/08/17 2220: Lactic Acid 0.9 09/08/17 2100: Sodium Cancelled Microbiology 09/09 1536 LOWER RESP: Respiratory Culture - COLB 09/09 1536 LOWER RESP: Gram Stain - COLB 04/10 2350 URINE ROUT: Legionella Antigen - COMP 09/08 2349 URINE ROUT: Streptococcus pneumoniae Antigen (M - COMP 09/08 2220 BLOOD: Blood Culture - RES 09/08 2116 LOWER RESP: Respiratory Culture - CAN Cancelled: SPECIMEN NOT RECEIVED IN LABORATORY 09/08 2116 LOWER RESP: Gram Stain - CAN Cancelled: SPECIMEN NOT RECEIVED IN LABORATORY Assessment/Plan Assessment: A: 37 yo M pmhx of LE swelling, hld, and htn presenting for cough and diarrhea found to have bilateral pleural effusions and pneumonia. P: # Bilateral lower lobe pneumonia with bilateral pleural effusions CXR: Worsening bibasilar and left midlung consolidation concerning for multifocal pneumonia, Possible small pleural effusions. Urinary antigens and flu negative -f/u sputum cx -Blood cultures growing gram-positive cocci seen 1 of 2 bottles, continue to monitor -f/u noncontrast chest C -Nothing by mouth at midnight for possible thoracentesis -cont ceftriazone azithro -f/u pulm recommendations -trc nebs #Bilateral LE edema ProBNP 2170 Pt has missed 2 days of home lasix -f/u cardiology consult -obtain echo results -monitor renal function -assess and give lasix as needed # LUCA on CKD Bun/cr 42/2.6 -> 52/3.1 CK 2832 *If post void residual greater than 300, place [place] *holding lisinopril for worsening LUCA -f/u heparitits panel, ANCA, ca, mg , phos -f/u urine lytes, spot -f/u UA -f/u renal US -elevated ck possibly due to statin -f/u neprhology recs -cont sodium bicarb #diabetic ulcer -f/u podiatry #hyponatremia Na 131 -> 131 -cont to monitor #hypocalcemia -f/u vit d levels -supplement if needed #elevated AST AST 94 -> 80 -monitor LFTs #chronic medical conditions: hld, htn -cont amlodipine, atorvastatin, #DVT ppx - heparin subq #FULL CODE Problem List: 1. Hypocalcemia 2. Hyponatremia 3. Pleural effusion 4. Acute on chronic renal insufficiency 5. Pneumonia Pain Ratin Pain Location: none Pain Goal: Pain 4 or less Pain Plan: pain pathway Tomorrow's Labs & Rationales: cbc bep inr ca, mg, phos ANCA
--- NOTE | 2017-09-09 11:16 | PN- Att Addend ---
Attending Addendum Attending Brief Note Patient seen and examined, still feels short of breath. Slightly better than yesterday but not back to baseline yet. Vital Signs Date Time Temp Pulse Resp B/P B/P Pulse O2 O2 Flow FiO2 Mean Ox Delivery Rate 09/09 1054 94 Nasal 3.0L Cannula 09/09 0800 94 Nasal 3.0L Cannula 09/09 0648 98.2 64 20 170/20 94 Nasal 3.0L Cannula 09/09 0021 98.7 71 18 170/90 09/09 0021 98.7 71 18 170/90 09/09 0000 93 Nasal 3.0L Cannula 09/08 2201 Nasal 3.0L Cannula 09/08 2147 97.6 72 18 160/64 93 Nasal 3.0L Cannula 09/08 2059 98.1 09/08 2042 70 20 157/73 93 Nasal 3.0L Cannula 09/08 1847 98.9 70 18 153/67 96 Nasal 3.0L Cannula 09/08 1500 Nasal 3.0L Cannula 09/08 1426 98.5 73 18 163/73 91 Nasal 3.0L Cannula 09/08 1412 91 Nasal 3.0L Cannula 09/08 1221 98.4 67 18 164/68 90 Room Air on exam; aox3, nad. cv; s1, s2, rrr resp; some crackles b/l bases. abd; soft, nt, bs+ ext; + edema. Laboratory Tests 09/09 09/08 09/08 0900 2220 2100 Chemistry Sodium (137 - 145 mmol/L) 131 L Cancelled Potassium (3.5 - 5.1 mmol/L) 4.1 Chloride (98 - 107 mmol/L) 104 Carbon Dioxide (22 - 30 mmol/L) 16 L Anion Gap (5 - 16) 11 BUN (9 - 20 mg/dL) 52 H Creatinine (0.7 - 1.2 mg/dL) 3.1 H Estimated GFR (>60 ml/min) 23 L BUN/Creatinine Ratio (7 - 25 %) 16.8 Lactic Acid (0.7 - 2.1 mmol/L) 0.9 Total Bilirubin (0.2 - 1.3 mg/dL) 0.2 Direct Bilirubin (< 0.4 mg/dL) 0.2 AST (17 - 59 U/L) 80 H ALT (21 - 72 U/L) 45 Alkaline Phosphatase (< 127 U/L) 67 Total Protein (6.3 - 8.2 g/dL) 5.5 L Albumin (3.5 - 5.0 g/dL) 2.4 L Hematology CBC w Diff NO MAN DIFF REQ WBC (4.8 - 10.8 /CUMM) 6.3 RBC (4.70 - 6.10 /CUMM) 3.61 L Hgb (14.0 - 18.0 G/DL) 10.4 L Hct (42 - 52 %) 31.6 L MCV (80.0 - 94.0 FL) 87.7 MCH (27.0 - 31.0 PG) 28.8 MCHC (33.0 - 37.0 G/DL) 32.9 L RDW (11.5 - 14.5 %) 13.4 Plt Count (130 - 400 /CUMM) 294 MPV (7.4 - 10.4 FL) 9.2 Gran % (42.2 - 75.2 %) 79.6 H Lymphocytes % (20.5 - 51.1 %) 10.1 L Monocytes % (1.7 - 9.3 %) 10.2 H Eosinophils % (0 - 5 %) 0 Basophils % (0.0 - 2.0 %) 0.1 Absolute Granulocytes (1.4 - 6.5 /CUMM) 5.0 Absolute Lymphocytes (1.2 - 3.4 /CUMM) 0.6 L Absolute Monocytes (0.10 - 0.60 /CUMM) 0.6 Absolute Eosinophils (0.0 - 0.7 /CUMM) 0 Absolute Basophils (0.0 - 0.2 /CUMM) 0 09/08 09/08 1520 1225 Chemistry Sodium (137 - 145 mmol/L) 131 L Cancelled Potassium (3.5 - 5.1 mmol/L) 4.0 Cancelled Chloride (98 - 107 mmol/L) 105 Cancelled Carbon Dioxide (22 - 30 mmol/L) 14 L Cancelled Anion Gap (5 - 16) 12 Cancelled BUN (9 - 20 mg/dL) 42 H Cancelled Creatinine (0.7 - 1.2 mg/dL) 2.6 H Cancelled Estimated GFR (>60 ml/min) 28 L BUN/Creatinine Ratio (7 - 25 %) 16.2 Cancelled Glucose (65 - 99 mg/dL) 119 H Cancelled Lactic Acid (0.7 - 2.1 mmol/L) 0.5 L Calcium (8.4 - 10.2 mg/dL) 7.9 L Cancelled Total Bilirubin (0.2 - 1.3 mg/dL) 0.5 Cancelled AST (17 - 59 U/L) 94 H Cancelled ALT (21 - 72 U/L) 42 Cancelled Alkaline Phosphatase (< 127 U/L) 70 Cancelled Troponin I (<0.11 ng/ml) 0.04 [id number] Pept (<125 pg/mL) 2170 H Cancelled Total Protein (6.3 - 8.2 g/dL) 5.7 L Cancelled Albumin (3.5 - 5.0 g/dL) 2.6 L Cancelled Globulin (1.9 - 4.2 gm/dL) 3.1 Cancelled Albumin/Globulin Ratio (1.1 - 2.2 %) 0.8 L Cancelled 25-OH Vitamin D Total (30 - 100 ng/ml) 15.8 L Hematology CBC w Diff NO MAN DIFF REQ WBC (4.8 - 10.8 /CUMM) 9.2 RBC (4.70 - 6.10 /CUMM) 3.77 L Hgb (14.0 - 18.0 G/DL) 11.1 L Hct (42 - 52 %) 33.0 L MCV (80.0 - 94.0 FL) 87.6 MCH (27.0 - 31.0 PG) 29.6 MCHC (33.0 - 37.0 G/DL) 33.8 RDW (11.5 - 14.5 %) 14.0 Plt Count (130 - 400 /CUMM) 288 MPV (7.4 - 10.4 FL) 9.6 Gran % (42.2 - 75.2 %) 88.3 H Lymphocytes % (20.5 - 51.1 %) 7.0 L Monocytes % (1.7 - 9.3 %) 4.4 Eosinophils % (0 - 5 %) 0.1 Basophils % (0.0 - 2.0 %) 0.2 Absolute Granulocytes (1.4 - 6.5 /CUMM) 8.1 H Absolute Lymphocytes (1.2 - 3.4 /CUMM) 0.6 L Absolute Monocytes (0.10 - 0.60 /CUMM) 0.4 Absolute Eosinophils (0.0 - 0.7 /CUMM) 0 Absolute Basophils (0.0 - 0.2 /CUMM) 0 A/P; 37-year-old male with past medical history significant for diabetes, hypertension, chronic kidney disease is admitted with community-acquired pneumonia, bilateral pleural effusion, acute on chronic renal failure, and right foot diabetic ulcer. Will get a noncontrast CT chest. Appreciate pulmonology input. Patient will likely need thoracentesis if CT chest shows effusions. Please obtain nephrology consult. Please obtain echocardiogram and cardiology evaluation. But hold lisinopril for now because creatinine is worsening. Podiatry consult for the right foot diabetic ulcer. Continue current antibiotics and follow-up on cultures. DVT px; Please start the patient on Hep sq. D/W patient's father at bedside.
--- NOTE | 2017-09-09 11:48 | Cons- Nephrology ---
General Information and HPI Consulting Request Date of Consult: 09/09/17 Requested By: Marcellus Montenegro MD Reason for Consult: CKD & LUCA Source of Information: patient, old records Exam Limitations: no limitations History of Present Illness: 37 yr old WM w mult med problems including DM, HTN, & CKD w massive proteinuria/ full blown nephrotic syndrome & known proliferative diabetic retinopathy. Admit yesterday w diarrhea, nonproductive cough, fever, & pulm infitrates. Begun on IV antibiotics, bronchodilators & course of steroids now d/c. Known mod, stage 3B, CKD w Cr hi 1s earlier this yr & Cr found further increased 2.6 on admit rising 3.1 today. No documented hypotension or IV contrast. On ACEI as outpt now d/c & denies all NSAIDs. Chronic leg edma & SOB worsening over last several months w/o change. Denies voiding difficulty. Allergies/Medications Allergies: Coded Allergies: No Known Allergies (09/08/17) Home Med List: Amlodipine Besylate 10 MG TABLET 1 TAB PO DAILY HTN (Reported) Atorvastatin Calcium (Lipitor) 80 MG TABLET 1 TAB PO DAILY Cholesterol ( Reported) Furosemide (Lasix) 40 MG TABLET 1 TAB PO DAILY fluid overload (Reported) Glipizide (Glipizide ER) 10 MG TAB.ER.24 1 TAB PO DAILY DM (Reported) Hydralazine HCl 100 MG TABLET 1 TAB PO BID htn (Reported) Insulin Glargine,Hum.rec.anlog (Lantus Solostar) 100 UNIT/ML (3 ML) INSULN.PEN 20 UNIT SC QPM DM (Reported) Lisinopril 40 MG TABLET 1 TAB PO DAILY BP (Reported) Metformin HCl 500 MG TABLET 1 TAB PO DAILY HTN (Reported) Metoprolol Tartrate (Lopressor) 100 MG TABLET 1 TAB PO BID HTN (Reported) Sodium Bicarbonate 650 MG TABLET 1 TAB PO BID Hyponatremia (Reported) Current Medications: Current Medications Sig/Jozef Start time Last Medication Dose Route Stop Time Status Admin Albuterol Sulfate 3 ML BID 09/09 2200 AC 09/09 INH 1046 Albuterol Sulfate 3 ML ONCE ONE 09/08 1300 DC 09/08 INH 09/08 1301 1345 Amlodipine Besylate 10 MG DAILY 09/09 1000 AC 09/09 PO 1059 Atorvastatin Calcium 80 MG 1700 09/09 1700 AC PO Azithromycin 500 MG DAILY 09/09 1000 AC 09/09 Dextrose/Water 250 ML IV 1101 Azithromycin 500 MG ONCE ONE 09/08 1445 DC 09/08 Dextrose/Water 250 ML IV 09/08 1544 1536 Calcium/Vitamin D 500 MG DAILY 09/09 1000 AC 09/09 PO 1058 Ceftriaxone Sodium 1,000 MG DAILY 09/09 1000 AC 09/09 IV 1100 Ceftriaxone Sodium 0 .STK-MED ONE 09/08 1509 DC .ROUTE Ceftriaxone Sodium 1,000 MG ONCE ONE 09/08 1445 DC 09/08 IV 09/08 1446 1536 Furosemide 40 MG DAILY 09/09 1000 CAN IV Furosemide 0 .STK-MED ONE 09/08 1401 DC IV Furosemide 40 MG ONCE ONE 09/08 1300 DC 09/08 IV 09/08 1301 1411 Hydralazine HCl 100 MG BID 09/08 2200 AC 09/09 PO 1059 Insulin Aspart 0 TIDAC 09/09 0800 AC 09/09 SC 0837 Insulin Aspart 0 AT BEDTIME 09/08 2200 AC 09/08 SC 2155 Insulin Detemir 10 UNITS QPM 09/08 2200 AC 09/08 SC 2156 Ipratropium [place] 2.5 ML ONCE ONE 09/08 1300 DC 09/08 INH 09/08 1301 1345 Lisinopril 40 MG DAILY 09/09 1000 DC 09/09 PO 1058 Methylprednisolone 0 .STK-MED ONE 09/08 1401 DC .ROUTE Methylprednisolone 125 MG ONCE ONE 09/08 1300 DC 09/08 IV 09/08 1301 1411 Metoprolol Tartrate 100 MG BID 09/08 2200 AC 09/09 PO 1059 Sodium Bicarbonate 650 MG BID 09/08 2200 AC 09/09 PO 1057 Review of Systems Review of Systems Constitutional: Reports: chills, fever. EENTM: Reports: no symptoms. Denies: blurred vision. Cardiovascular: Reports: see HPI, edema. Respiratory: Reports: see HPI, cough, short of breath. GI: Reports: see HPI, diarrhea. Denies: nausea, vomiting. Genitourinary: Reports: no symptoms. Musculoskeletal: Reports: no symptoms. Skin: Reports: no symptoms. Neurological/Psychological: Reports: no symptoms. Hematologic/Endocrine: Reports: no symptoms. Immunologic/Allergic: Reports: no symptoms. 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 Home Smoking Status: Never Smoked ETOH Use: denies use Illicit Drug Use: denies illicit drug use Exam & Diagnostic Data Vital Signs and I&O Vital Signs Date Time Temp Pulse Resp B/P B/P Pulse O2 O2 Flow FiO2 Mean Ox Delivery Rate 09/09 1102 Nasal 3.0L Cannula 09/09 1059 68 150/68 09/09 1059 68 150/68 09/09 1059 68 150/68 09/09 1058 68 150/60 09/09 1054 94 Nasal 3.0L Cannula 09/09 0800 94 Nasal 3.0L Cannula 09/09 0648 98.2 64 20 170/20 94 Nasal 3.0L Cannula 09/09 0021 98.7 71 18 170/90 09/09 0021 98.7 71 18 170/90 09/09 0000 93 Nasal 3.0L Cannula 09/08 2201 Nasal 3.0L Cannula 09/08 2147 97.6 72 18 160/64 93 Nasal 3.0L Cannula 09/08 2059 98.1 09/08 2042 70 20 157/73 93 Nasal 3.0L Cannula 09/08 1847 98.9 70 18 153/67 96 Nasal 3.0L Cannula 09/08 1500 Nasal 3.0L Cannula 09/08 1426 98.5 73 18 163/73 91 Nasal 3.0L Cannula 09/08 1412 91 Nasal 3.0L Cannula 09/08 1221 98.4 67 18 164/68 90 Room Air Intake & Output 09/09 1600 09/09 0400 09/08 1600 09/08 0400 09/07 1600 09/07 0400 Intake Total 200 160 240 Output Total Balance 200 160 240 Intake, IV 0 10 Intake, Oral 200 150 240 Number 1 Bowel Movements Patient 360 lb 360 lb Weight Weight Reported by Patient Estimated Measurement Method Physical Exam General Appearance: no apparent distress, alert, obese Head: atraumatic, normal appearance Eyes: Bilateral: normal appearance. 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3 mg/dL) 0.2 Direct Bilirubin (< 0.4 mg/dL) 0.2 AST (17 - 59 U/L) 80 H ALT (21 - 72 U/L) 45 Alkaline Phosphatase (< 127 U/L) 67 Total Protein (6.3 - 8.2 g/dL) 5.5 L Albumin (3.5 - 5.0 g/dL) 2.4 L Hematology CBC w Diff NO MAN DIFF REQ WBC (4.8 - 10.8 /CUMM) 6.3 RBC (4.70 - 6.10 /CUMM) 3.61 L Hgb (14.0 - 18.0 G/DL) 10.4 L Hct (42 - 52 %) 31.6 L MCV (80.0 - 94.0 FL) 87.7 MCH (27.0 - 31.0 PG) 28.8 MCHC (33.0 - 37.0 G/DL) 32.9 L RDW (11.5 - 14.5 %) 13.4 Plt Count (130 - 400 /CUMM) 294 MPV (7.4 - 10.4 FL) 9.2 Gran % (42.2 - 75.2 %) 79.6 H Lymphocytes % (20.5 - 51.1 %) 10.1 L Monocytes % (1.7 - 9.3 %) 10.2 H Eosinophils % (0 - 5 %) 0 Basophils % (0.0 - 2.0 %) 0.1 Absolute Granulocytes (1.4 - 6.5 /CUMM) 5.0 Absolute Lymphocytes (1.2 - 3.4 /CUMM) 0.6 L Absolute Monocytes (0.10 - 0.60 /CUMM) 0.6 Absolute Eosinophils (0.0 - 0.7 /CUMM) 0 Absolute Basophils (0.0 - 0.2 /CUMM) 0 09/08 09/08 1520 1225 Chemistry Sodium (137 - 145 mmol/L) 131 L Cancelled Potassium (3.5 - 5.1 mmol/L) 4.0 Cancelled Chloride (98 - 107 mmol/L) 105 Cancelled Carbon Dioxide (22 - 30 mmol/L) 14 L Cancelled Anion Gap (5 - 16) 12 Cancelled BUN (9 - 20 mg/dL) 42 H Cancelled Creatinine (0.7 - 1.2 mg/dL) 2.6 H Cancelled Estimated GFR (>60 ml/min) 28 L BUN/Creatinine Ratio (7 - 25 %) 16.2 Cancelled Glucose (65 - 99 mg/dL) 119 H Cancelled Lactic Acid (0.7 - 2.1 mmol/L) 0.5 L Calcium (8.4 - 10.2 mg/dL) 7.9 L Cancelled Total Bilirubin (0.2 - 1.3 mg/dL) 0.5 Cancelled AST (17 - 59 U/L) 94 H Cancelled ALT (21 - 72 U/L) 42 Cancelled Alkaline Phosphatase (< 127 U/L) 70 Cancelled Troponin I (<0.11 ng/ml) 0.04 [id number] Pept (<125 pg/mL) 2170 H Cancelled Total Protein (6.3 - 8.2 g/dL) 5.7 L Cancelled Albumin (3.5 - 5.0 g/dL) 2.6 L Cancelled Globulin (1.9 - 4.2 gm/dL) 3.1 Cancelled Albumin/Globulin Ratio (1.1 - 2.2 %) 0.8 L Cancelled 25-OH Vitamin D Total (30 - 100 ng/ml) 15.8 L Hematology CBC w Diff NO MAN DIFF REQ WBC (4.8 - 10.8 /CUMM) 9.2 RBC (4.70 - 6.10 /CUMM) 3.77 L Hgb (14.0 - 18.0 G/DL) 11.1 L Hct (42 - 52 %) 33.0 L MCV (80.0 - 94.0 FL) 87.6 MCH (27.0 - 31.0 PG) 29.6 MCHC (33.0 - 37.0 G/DL) 33.8 RDW (11.5 - 14.5 %) 14.0 Plt Count (130 - 400 /CUMM) 288 MPV (7.4 - 10.4 FL) 9.6 Gran % (42.2 - 75.2 %) 88.3 H Lymphocytes % (20.5 - 51.1 %) 7.0 L Monocytes % (1.7 - 9.3 %) 4.4 Eosinophils % (0 - 5 %) 0.1 Basophils % (0.0 - 2.0 %) 0.2 Absolute Granulocytes (1.4 - 6.5 /CUMM) 8.1 H Absolute Lymphocytes (1.2 - 3.4 /CUMM) 0.6 L Absolute Monocytes (0.10 - 0.60 /CUMM) 0.4 Absolute Eosinophils (0.0 - 0.7 /CUMM) 0 Absolute Basophils (0.0 - 0.2 /CUMM) 0 Imaging/Other Studies: CXR: Worsening bibasilar and left midlung consolidation concerning for multifocal pneumonia in light of the clinical history. Possible small pleural effusions. Radiographic follow-up recommended to document resolution. Doppler: IMPRESSION: No evidence of deep venous thrombosis involving the bilateral lower extremities. Assessment/Plan Assessment/Recommendations Assessment: 1. LUCA: etiology unclear; total body volume overloaded w edema in setting of nephrotic syndrome making IV volume assessment difficult but doubt IV hypovolemia. Can't exclude ATN in setting of acute pulm infection. Needs obstruction excluded. Can screen for vasculitis but doubt. Agreee w holding RAAS interruptoin for now. No renal replacement indication. 2. CKD: mod/severe, stage 3B, due to presumed diabetic nephropathy 3. Nephrotic syndrome: presumed due to DN; will eventually need ACEI restarted 4. Met acid: chronic; due to CKD & diarrhea --> continue po Na bicarb 5. HypoCa: prob appropriate for alb; needs phos & Mg checked Recommendations: 1. u/a 2. ANCA 3. renal US 4. post void bladder scan --> if >/= [address] 5. serial chemistries 6. check CK 7. check phos & Mg
[2017-09-09 14:48] VITALS: BP 140/80
--- NOTE | 2017-09-09 15:02 | CT SCAN REPORT ---
EXAMINATION: CT CHEST WITHOUT CONTRAST CLINICAL INFORMATION: Bilateral pleural effusions and pneumonia. Evaluate fluid. Possible thoracentesis. COMPARISON: Chest radiograph 09/08/2017. TECHNIQUE: Multidetector volumetric CT imaging of the chest was done. Axial MIP volume rendering provided. Sagittal and coronal reformatted images were obtained. DLP: 983.38 mGy-cm FINDINGS: There is ill-defined multifocal airspace disease involving both lungs with a perihilar predominant distribution consistent with pneumonia. There is a right pleural effusion that comprises 25% of the right hemithoracic volume and a trace left pleural effusion. The chest wall is intact. No acute osseous finding. The trachea and major airways are patent. Visualized portions of thoracic outlet including the thyroid gland are unremarkable. Multiple likely reactive mediastinal lymph nodes are noted. Limited visualization of the abdominal cavity reveals no abnormal finding. IMPRESSION: There is airspace disease involving both lungs consistent with pneumonia. There is a right pleural effusion that comprises approximately 25% of the right hemithoracic volume and a trace left effusion. Multiple relatively prominent mediastinal lymph nodes are likely reactive.
--- NOTE | 2017-09-09 15:29 | ULTRASOUND REPORT ---
EXAMINATION: US RETROPERITONEAL COMPLETE (RENAL) CLINICAL INFORMATION: Diabetic nephropathy. Rule out obstruction/retention. Acute kidney insufficiency. COMPARISON: Renal ultrasound dated 03/06/2017. CT scan of the abdomen dated 08/03/2017. TECHNIQUE: Real-time imaging of the kidneys and bladder. FINDINGS: Evaluation is limited by the patient's body habitus. RIGHT KIDNEY: 14.6 x 6.4 x 6.2 cm (SAG x AP x TRV) versus 14.9 x 7.4 x 7.6 cm (03/06/2017). The kidney is normal in size, contour, and echogenicity. Renal cortical thickness is normal. No calculi or focal parenchymal lesions. No hydronephrosis. LEFT KIDNEY: 13.8 x 6.8 x 4.9 cm (SAG x AP x TRV). The kidney is normal in size, contour, and echogenicity. Renal cortical thickness is normal. No calculi or focal parenchymal lesions. No hydronephrosis. BLADDER: Well-distended and normal. Bilateral ureteral jets are not demonstrated. Prevoid bladder volume is 691 mL. Postvoid bladder residual could not be assessed, as the patient was unable to void. IMPRESSION: 1. Slightly limited exam due to patient's body habitus. 2. Bilaterally normal size kidneys are seen without obvious cortical atrophy or hydronephrosis. 3. Dilated bladder. Patient was unable to void and post void residual could not be assessed. Please correlate clinically regarding patient's ability to void and exclude underlying functional outlet obstruction/neurogenic bladder.
[2017-09-09 16:55] LABS: PT 11.6 SEC (9.4-12.5)
--- NOTE | 2017-09-09 16:55 | Cons- Podiatry ---
General Information and HPI Consulting Request Date of Consult: 09/09/17 Requested By: Marcellus Montenegro MD Reason for Consult: New onset right foot wound. Source of Information: patient Exam Limitations: no limitations History of Present Illness: This is a 37 year old male with a 18 year history of type 2 DM admitted for sepsis secondary to pneumonia. He is seen by podiatry for a new onset midfoot bulla of the plantar right foot. He reports a history of amputation, 5th toe, left side, performed by Dr. Edward Darden during a prior admission. He denies f/ c/n/v/d/sob/cp at the time of my exam, and reports feeling much better since his admission. Allergies/Medications Allergies: Coded Allergies: No Known Allergies (09/08/17) Home Med List: Amlodipine Besylate 10 MG TABLET 1 TAB PO DAILY HTN (Reported) Atorvastatin Calcium (Lipitor) 80 MG TABLET 1 TAB PO DAILY Cholesterol ( Reported) Furosemide (Lasix) 40 MG TABLET 1 TAB PO DAILY fluid overload (Reported) Glipizide (Glipizide ER) 10 MG TAB.ER.24 1 TAB PO DAILY DM (Reported) Hydralazine HCl 100 MG TABLET 1 TAB PO BID htn (Reported) Insulin Glargine,Hum.rec.anlog (Lantus Solostar) 100 UNIT/ML (3 ML) INSULN.PEN 20 UNIT SC QPM DM (Reported) Lisinopril 40 MG TABLET 1 TAB PO DAILY BP (Reported) Metformin HCl 500 MG TABLET 1 TAB PO DAILY HTN (Reported) Metoprolol Tartrate (Lopressor) 100 MG TABLET 1 TAB PO BID HTN (Reported) Sodium Bicarbonate 650 MG TABLET 1 TAB PO BID Hyponatremia (Reported) Current Medications: Current Medications Sig/Jozef Start time Last Medication Dose Route Stop Time Status Admin Albuterol Sulfate 3 ML BID 09/09 2200 AC 09/09 INH 1046 Amlodipine Besylate 10 MG DAILY 09/09 1000 AC 09/09 PO 1059 Atorvastatin Calcium 80 MG 1700 09/09 1700 AC 09/09 PO 1558 Azithromycin 500 MG DAILY 09/09 1000 AC 09/09 Dextrose/Water 250 ML IV 1101 Calcium/Vitamin D 500 MG DAILY 09/09 1000 AC 09/09 PO 1058 Ceftriaxone Sodium 1,000 MG DAILY 09/09 1000 AC 09/09 IV 1100 Furosemide 40 MG DAILY 09/09 1000 CAN IV Heparin Sodium 5,000 UNIT Q8 09/09 1445 AC 09/09 (Porcine) SC 09/10 0600 1557 Hydralazine HCl 100 MG BID 09/08 2200 AC 09/09 PO 1059 Insulin Aspart 0 TIDAC 09/09 0800 AC 09/09 SC 0837 Insulin Aspart 0 AT BEDTIME 09/08 2200 AC 09/08 SC 2155 Insulin Detemir 10 UNITS QPM 09/08 2200 AC 09/08 SC 2156 Lisinopril 40 MG DAILY 09/09 1000 DC 09/09 PO 1058 Metoprolol Tartrate 100 MG BID 09/08 2200 AC 09/09 PO 1059 Sodium Bicarbonate 650 MG BID 09/08 2200 AC 09/09 PO 1057 Sodium Chloride 1,000 ML Q13H 09/09 1445 AC 09/09 IV 1558 Past History Medical History Blood Transfusion Hx: No Neurological: NEUROPATHY (DIABETIC) EENT: RETINOPOTHY Cardiovascular: hypertension Respiratory: NONE Gastrointestinal: NONE Hepatic: NONE Renal: STAGE 3 RENAL DISEASE Musculoskeletal: NONE Psychiatric: NONE Endocrine: DM Blood Disorders: NONE Cancer(s): NONE 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 Home Smoking Status: Never Smoked ETOH Use: denies use Illicit Drug Use: denies illicit drug use Review of Systems Review of Systems: a 14 point ROS was performed and found to be negative apart from the chief complaint. Exam & Diagnostic Data Vital Signs and I&O Vital Signs Date Time Temp Pulse Resp B/P B/P Pulse O2 O2 Flow FiO2 Mean Ox Delivery Rate 09/09 1448 98.7 84 20 140/80 92 Nasal 3.0L Cannula 09/09 1102 Nasal 3.0L Cannula 09/09 1059 68 150/68 09/09 1059 68 150/68 09/09 1059 68 150/68 09/09 1058 68 150/60 09/09 1054 94 Nasal 3.0L Cannula 09/09 0800 94 Nasal 3.0L Cannula 09/09 0648 98.2 64 20 170/20 94 Nasal 3.0L Cannula 09/09 0021 98.7 71 18 170/90 09/09 0021 98.7 71 18 170/90 09/09 0000 93 Nasal 3.0L Cannula 09/08 2200 Nasal 3.0L Cannula 09/08 2146 97.6 72 18 160/64 93 Nasal 3.0L Cannula 09/089 98.1 09/08 2042 70 20 157/73 93 Nasal 3.0L Cannula 09/08 1847 98.9 70 18 153/67 96 Nasal 3.0L Cannula Intake & Output 09/09 1600 09/09 0809/09 0000 09/08 1600 09/08 0809/08 0000 Intake Total 730 200 160 240 Output Total 800 Balance -70 200 160 240 Intake, IV 250 0 10 Intake, Oral 480 200 150 240 Number 1 1 Bowel Movements Output, Urine 800 Patient 360 lb 360 lb Weight Weight Reported by Patient Estimated Measurement Method Physical Exam: Pedal pulses are palpable bilaterally, but are 1/4 secondary to +3 BLE pitting edema. Temperature gradient is WNL BLE. Capillary refill is 3s x 9 remaining digits. Pt is s/p left 5th toe amputation. Pt is insensate from the tips of his toes to the heel equal and b/l on proprioception and light touch exams. 5/5 muscle power all BLE compartments. There is a large superficial bulla in the lateral plantar right midfoot about the styloid process with no drainage or subcutaneous tissue exposed. There is some skin debris at the level of dermis, but no fluctuance, no erythema, no malodor, no crepitus. Last 24 Hours of Labs: Laboratory Tests 09/09 09/09 09/09 1605 1435 0900 Chemistry Sodium (137 - 145 mmol/L) 131 L Potassium (3.5 - 5.1 mmol/L) 4.1 Chloride (98 - 107 mmol/L) 104 Carbon Dioxide (22 - 30 mmol/L) 16 L Anion Gap (5 - 16) 11 BUN (9 - 20 mg/dL) 52 H Creatinine (0.7 - 1.2 mg/dL) 3.1 H Estimated GFR (>60 ml/min) 23 L BUN/Creatinine Ratio (7 - 25 %) 16.8 Total Bilirubin (0.2 - 1.3 mg/dL) 0.2 Direct Bilirubin (< 0.4 mg/dL) 0.2 AST (17 - 59 U/L) 80 H ALT (21 - 72 U/L) 45 Alkaline Phosphatase (< 127 U/L) 67 Creatine Kinase (55 - 170 U/L) 2832 H Total Protein (6.3 - 8.2 g/dL) 5.5 L Albumin (3.5 - 5.0 g/dL) 2.4 L Coagulation PT Pending INR Pending Hematology CBC w Diff NO MAN DIFF REQ WBC (4.8 - 10.8 /CUMM) 6.3 RBC (4.70 - 6.10 /CUMM) 3.61 L Hgb (14.0 - 18.0 G/DL) 10.4 L Hct (42 - 52 %) 31.6 L MCV (80.0 - 94.0 FL) 87.7 MCH (27.0 - 31.0 PG) 28.8 MCHC (33.0 - 37.0 G/DL) 32.9 L RDW (11.5 - 14.5 %) 13.4 Plt Count (130 - 400 /CUMM) 294 MPV (7.4 - 10.4 FL) 9.2 Gran % (42.2 - 75.2 %) 79.6 H Lymphocytes % (20.5 - 51.1 %) 10.1 L Monocytes % (1.7 - 9.3 %) 10.2 H Eosinophils % (0 - 5 %) 0 Basophils % (0.0 - 2.0 %) 0.1 Absolute Granulocytes (1.4 - 6.5 /CUMM) 5.0 Absolute Lymphocytes (1.2 - 3.4 /CUMM) 0.6 L Absolute Monocytes (0.10 - 0.60 /CUMM) 0.6 Absolute Eosinophils (0.0 - 0.7 /CUMM) 0 Absolute Basophils (0.0 - 0.2 /CUMM) 0 Urines Urine Color Pending Urine Clarity Pending Urine pH Pending Ur Specific [place] Pending Urine Protein Pending Urine Ketones Pending Urine Nitrite Pending Urine Bilirubin Pending Urine Urobilinogen Pending Ur Leukocyte Esterase Pending Ur Microscopic Pending Urine Hemoglobin Pending Urine Glucose Pending 09/080 2100 Chemistry Sodium Cancelled Lactic Acid (0.7 - 2.1 mmol/L) 0.9 Assessment/Plan Assessment/Plan 37 y/o diabetic male with history of partial left foot amputation and peripheral neuropathy with new onset superficial bullous neuropathic ulceration of the right midfoot. Pt seen and evaluated The wound was debrided down to dermis with a sterile instrument kit and a dry sterile dressing was applied Will order portable XR to r/o osteomyelitis or deep infection, but this doesn't appear to be suspicious clinically Will order flat surgical shoe. Pt may WBAT to bathroom and back with it. Will order Silvadene cream for local daily wound care Will f/u tomorrow to review XR and form outpatient wound care plan Consult Acknowledgment - Thank you for your consult request.
--- NOTE | 2017-09-09 22:13 | RADIOLOGY REPORT ---
EXAMINATION: XR FOOT, RIGHT CLINICAL INFORMATION: 37-year-old male patient with wound in the plantar lateral aspect of the right midfoot. Presumptive diagnosis: Osteomyelitis of the styloid process. COMPARISON: None TECHNIQUE: 4 views of the right foot. FINDINGS: There is considerable soft tissue swelling of the midfoot. Vascular calcifications are present. An area of exostosis bridges the dorsal aspect of the midfoot. There is evidence of bone erosion involving the proximal right fifth metatarsal. This finding could represent chronic osteomyelitis. There is general demineralization of the base of the fifth metacarpal and the cuboid bone. A small plantar spur arises from the os calcis. IMPRESSION: Findings localized to the styloid process of the right foot that are consistent with chronic osteomyelitis.
[2017-09-09 22:16] VITALS: BP 138/68
[2017-09-10 06:38] VITALS: BP 160/80
--- NOTE | 2017-09-10 08:06 | Cons- Cardiology ---
General Information and HPI Consulting Request Date of Consult: 09/10/17 Requested By: Marcellus Montenegro MD Reason for Consult: Volume overload Source of Information: patient, old records Exam Limitations: clinical condition, poor historian History of Present Illness: 37 yo M pmhx of LE swelling, hld, and htn presenting for cough and diarrhea. The patient states that he started having symptoms on Thursday. The patient states that he went to the [facility]Ps [place] today. In office he was found to have a temperature 101.5 and his oxygen saturation was 80-90%. The patient states that he listened to his lungs and then decided to call to him was to bring him into the hospital. He complains of shortness of breath, cough, fever, chills, nausea , nasal and chest congestionand, muscle aches, abdominal pain and diarrhea which started Thursday. He states that the diarrhea has occurred daily. He states that he has not noticed any blood. The patient's father has noted yellowish green stool. The patient's mother states that she was sick last week and was treated with azithromycin. The patient's father also has upper respiratory symptoms at this time. The patient states that he was taking care of his nephew who is also now sick. The patient denies any headaches, chest pain, dysuria, joint pain. The patient currently sitting comfortably on oxygen however he is on any oxygen at home. He states that he did get the flu shot this year. Of note the patient states that he has a history of hypertension and was admitted for hypertension. He states that he was given lisinopril and developed ?LUCA/ARF. He has been followed by nephrology since then for his chronic kidney disease. The patient's mother states that the patient has missed the last 2 days of Lasix. The patient's mother also states that he has had no echocardiogram within the past couple weeks. The above information was obtained by the admitting resident. 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 He also has diabetic retinopathy. He recently as above an upper respiratory infection. He has history of hypertension, diabetes, volume overload with generalized anasarca related to nephrotic syndrome. He had an echocardiogram at our office in July 2017 for left ventricular ejection fraction is greater than 55% and right ventricle systolic pressure was 50 mmHg with moderate LVH. He had a stress test on 08/24/2017 that was nondiagnostic due to low workload. He is morbidly obese at 385 pounds. Allergies/Medications Allergies: Coded Allergies: No Known Allergies (09/08/17) Home Med List: Amlodipine Besylate 10 MG TABLET 1 TAB PO DAILY HTN (Reported) Atorvastatin Calcium (Lipitor) 80 MG TABLET 1 TAB PO DAILY Cholesterol ( Reported) Furosemide (Lasix) 40 MG TABLET 1 TAB PO DAILY fluid overload (Reported) Glipizide (Glipizide ER) 10 MG TAB.ER.24 1 TAB PO DAILY DM (Reported) Hydralazine HCl 100 MG TABLET 1 TAB PO BID htn (Reported) Insulin Glargine,Hum.rec.anlog (Lantus Solostar) 100 UNIT/ML (3 ML) INSULN.PEN 20 UNIT SC QPM DM (Reported) Lisinopril 40 MG TABLET 1 TAB PO DAILY BP (Reported) Metformin HCl 500 MG TABLET 1 TAB PO DAILY HTN (Reported) Metoprolol Tartrate (Lopressor) 100 MG TABLET 1 TAB PO BID HTN (Reported) Sodium Bicarbonate 650 MG TABLET 1 TAB PO BID Hyponatremia (Reported) Current Medications: Current Medications Sig/Jozef Start time Last Medication Dose Route Stop Time Status Admin Albuterol Sulfate 3 ML BID 09/09 220 AC 09/09 INH 1919 Amlodipine Besylate 10 MG DAILY 09/09 1000 AC 09/09 PO 1059 Atorvastatin Calcium 80 MG 1700 09/09 1700 AC 09/09 PO 1558 Azithromycin 500 MG DAILY 09/09 1000 AC 09/09 Dextrose/Water 250 ML IV 1101 Calcium/Vitamin D 500 MG DAILY 09/09 1000 AC 09/09 PO 1058 Ceftriaxone Sodium 1,000 MG DAILY 09/09 1000 AC 09/09 IV 1100 Heparin Sodium 5,000 UNIT Q8 09/09 1445 DC 09/10 (Porcine) SC 09/10 0600 0634 Hydralazine HCl 100 MG BID 09/08 2200 AC 09/09 PO 2227 Insulin Aspart 0 TIDAC 09/09 0800 AC 09/09 SC 0837 Insulin Aspart 0 AT BEDTIME 09/08 2200 AC 09/08 SC 2155 Insulin Detemir 10 UNITS QPM 09/08 2200 AC 09/09 SC 2227 Lisinopril 40 MG DAILY 09/09 1000 DC 09/09 PO 1058 Metoprolol Tartrate 100 MG BID 09/08 2199 AC 09/09 PO 2226 Silver Sulfadiazine 1 MARLON DAILY 09/10 1000 AC TOP Sodium Bicarbonate 650 MG BID 09/080 AC 09/09 PO 2226 Sodium Chloride 1,000 ML Q13H 09/09 1445 DC 09/09 IV 1558 Review of Systems Review of Systems Constitutional: Reports: see HPI. EENTM: Reports: see HPI. Cardiovascular: Reports: see HPI. Respiratory: Reports: see HPI. GI: Reports: see HPI. Genitourinary: Reports: see HPI. Musculoskeletal: Reports: see HPI. Skin: Denies: no symptoms. Neurological/Psychological: Denies: no symptoms. Hematologic/Endocrine: Denies: no symptoms. Immunologic/Allergic: Reports: see HPI. 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 Home Smoking Status: Never Smoked ETOH Use: denies use Illicit Drug Use: denies illicit drug use ECHO Results (as available) Date of last Echo 08/14/17 EF% 55 Report: Left ventricle ejection fraction greater than 55%.) Systolic pressure 50 mmHg. Moderate left ventricular hypertrophy. Exam & Diagnostic Data Vital Signs and I&O Vital Signs Date Time Temp Pulse Resp B/P B/P Pulse O2 O2 Flow FiO2 Mean Ox Delivery Rate 09/10 0638 98.4 63 20 160/80 94 Room Air 09/10 0000 Nasal 3.0L Cannula 09/09 2227 71 138/68 09/09 2226 71 138/68 09/09 2216 98.7 71 20 138/68 92 Nasal Cannula 09/09 1919 94 Nasal 3.0L Cannula 09/09 1600 96 Nasal 3.0L Cannula 09/09 1448 98.7 84 20 140/80 92 Nasal 3.0L Cannula 09/09 1102 Nasal 3.0L Cannula 09/09 1059 68 150/68 09/09 1059 68 150/68 09/09 1059 68 150/68 09/09 1058 68 150/60 09/09 1054 94 Nasal 3.0L Cannula 09/09 0800 94 Nasal 3.0L Cannula Intake & Output 09/10 0809/10 1600 09/09 0809/09 0000 09/08 1600 Intake Total 730 200 160 240 Output Total 800 800 Balance -800 -70 200 160 240 Intake, IV 250 0 10 Intake, Oral 480 200 150 240 Number 1 1 Bowel Movements Output, Urine 800 800 Patient 360 lb 360 lb Weight Weight Reported by Patient Estimated Measurement Method Physical Exam: On physical exam patient appeared comfortable. Admits to feeling improved. Head normocephalic, atraumatic Eyes sclera anicteric conjunctiva showed no pallor extraocular muscles are normal sclerae anicteric Neck no jugular venous distention no thyroid masses no palpable nodes Chest lungs were fairly clear anterior lung kothari decreased air entry in the left base. Heart regular rhythm S2 is physiologically split no murmurs Abdomen hugely protuberant but probable ascites nontender Extremities 2-3+ edema Neurological no gross motor or sensory deficits. Labs/Bryce Results: Laboratory Tests 09/09 09/09 1605 1435 Coagulation PT (9.4 - 12.5 SEC) 11.6 INR (0.90 - 1.17) 1.06 Urines Urine Color (YEL,AMB,STR) YEL Urine Clarity (CLEAR) HAZY H Urine pH (5.0 - 8.0) 6.0 Ur Specific Wallace (1.001 - 1.035) 1.025 Urine Protein (NEG,<30 MG/DL) >=300 H Urine Ketones (NEG) NEG Urine Nitrite (NEG) NEG Urine Bilirubin (NEG) NEG Urine Urobilinogen (0.1 - 1.0 EU/dl) 0.2 Ur Leukocyte Esterase (NEG) NEG Ur Microscopic SEDIMENT EXAMINED Urine RBC (0 - 5 /HPF) RARE Urine WBC (0 - 2 /HPF) RARE Urine Bacteria (NEG/NONE) PACKD H Hyaline Casts (0/LPF) 1-3 H Granular Casts (NONE /LPF) 5-10 H Urine Hemoglobin (NEG) SMALL H Urine Glucose (N MG/DL) 500 H 09/09 09/08 09/08 0900 2220 2100 Chemistry Sodium (137 - 145 mmol/L) 131 L Cancelled Potassium (3.5 - 5.1 mmol/L) 4.1 Chloride (98 - 107 mmol/L) 104 Carbon Dioxide (22 - 30 mmol/L) 16 L Anion Gap (5 - 16) 11 BUN (9 - 20 mg/dL) 52 H Creatinine (0.7 - 1.2 mg/dL) 3.1 H Estimated GFR (>60 ml/min) 23 L BUN/Creatinine Ratio (7 - 25 %) 16.8 Lactic Acid (0.7 - 2.1 mmol/L) 0.9 Total Bilirubin (0.2 - 1.3 mg/dL) 0.2 Direct Bilirubin (< 0.4 mg/dL) 0.2 AST (17 - 59 U/L) 80 H ALT (21 - 72 U/L) 45 Alkaline Phosphatase (< 127 U/L) 67 Creatine Kinase (55 - 170 U/L) 2832 H Total Protein (6.3 - 8.2 g/dL) 5.5 L Albumin (3.5 - 5.0 g/dL) 2.4 L Hematology CBC w Diff NO MAN DIFF REQ WBC (4.8 - 10.8 /CUMM) 6.3 RBC (4.70 - 6.10 /CUMM) 3.61 L Hgb (14.0 - 18.0 G/DL) 10.4 L Hct (42 - 52 %) 31.6 L MCV (80.0 - 94.0 FL) 87.7 MCH (27.0 - 31.0 PG) 28.8 MCHC (33.0 - 37.0 G/DL) 32.9 L RDW (11.5 - 14.5 %) 13.4 Plt Count (130 - 400 /CUMM) 294 MPV (7.4 - 10.4 FL) 9.2 Gran % (42.2 - 75.2 %) 79.6 H Lymphocytes % (20.5 - 51.1 %) 10.1 L Monocytes % (1.7 - 9.3 %) 10.2 H Eosinophils % (0 - 5 %) 0 Basophils % (0.0 - 2.0 %) 0.1 Absolute Granulocytes (1.4 - 6.5 /CUMM) 5.0 Absolute Lymphocytes (1.2 - 3.4 /CUMM) 0.6 L Absolute Monocytes (0.10 - 0.60 /CUMM) 0.6 Absolute Eosinophils (0.0 - 0.7 /CUMM) 0 Absolute Basophils (0.0 - 0.2 /CUMM) 0 09/08 09/08 1520 1225 Chemistry Sodium (137 - 145 mmol/L) 131 L Cancelled Potassium (3.5 - 5.1 mmol/L) 4.0 Cancelled Chloride (98 - 107 mmol/L) 105 Cancelled Carbon Dioxide (22 - 30 mmol/L) 14 L Cancelled Anion Gap (5 - 16) 12 Cancelled BUN (9 - 20 mg/dL) 42 H Cancelled Creatinine (0.7 - 1.2 mg/dL) 2.6 H Cancelled Estimated GFR (>60 ml/min) 28 L BUN/Creatinine Ratio (7 - 25 %) 16.2 Cancelled Glucose (65 - 99 mg/dL) 119 H Cancelled Lactic Acid (0.7 - 2.1 mmol/L) 0.5 L Calcium (8.4 - 10.2 mg/dL) 7.9 L Cancelled Total Bilirubin (0.2 - 1.3 mg/dL) 0.5 Cancelled AST (17 - 59 U/L) 94 H Cancelled ALT (21 - 72 U/L) 42 Cancelled Alkaline Phosphatase (< 127 U/L) 70 Cancelled Troponin I (<0.11 ng/ml) 0.04 [id number] Pept (<125 pg/mL) 2170 H Cancelled Total Protein (6.3 - 8.2 g/dL) 5.7 L Cancelled Albumin (3.5 - 5.0 g/dL) 2.6 L Cancelled Globulin (1.9 - 4.2 gm/dL) 3.1 Cancelled Albumin/Globulin Ratio (1.1 - 2.2 %) 0.8 L Cancelled 25-OH Vitamin D Total (30 - 100 ng/ml) 15.8 L Hematology CBC w Diff NO MAN DIFF REQ WBC (4.8 - 10.8 /CUMM) 9.2 RBC (4.70 - 6.10 /CUMM) 3.77 L Hgb (14.0 - 18.0 G/DL) 11.1 L Hct (42 - 52 %) 33.0 L MCV (80.0 - 94.0 FL) 87.6 MCH (27.0 - 31.0 PG) 29.6 MCHC (33.0 - 37.0 G/DL) 33.8 RDW (11.5 - 14.5 %) 14.0 Plt Count (130 - 400 /CUMM) 288 MPV (7.4 - 10.4 FL) 9.6 Gran % (42.2 - 75.2 %) 88.3 H Lymphocytes % (20.5 - 51.1 %) 7.0 L Monocytes % (1.7 - 9.3 %) 4.4 Eosinophils % (0 - 5 %) 0.1 Basophils % (0.0 - 2.0 %) 0.2 Absolute Granulocytes (1.4 - 6.5 /CUMM) 8.1 H Absolute Lymphocytes (1.2 - 3.4 /CUMM) 0.6 L Absolute Monocytes (0.10 - 0.60 /CUMM) 0.4 Absolute Eosinophils (0.0 - 0.7 /CUMM) 0 Absolute Basophils (0.0 - 0.2 /CUMM) 0 Diagnostic Data EKG Results Sinus rhythm, possible LVH but borderline normal CXR Results There is airspace disease involving both lungs consistent with pneumonia. There is a right pleural effusion that comprises approximately 25% of the right hemithoracic volume and a trace left effusion. Multiple relatively prominent mediastinal lymph nodes are likely reactive. Other Results Renal ultrasound. Slightly limited exam due to patient's body habitus. 2. Bilaterally normal size kidneys are seen without obvious cortical atrophy or hydronephrosis. 3. Dilated bladder. Patient was unable to void and post void residual could not be assessed. Please correlate clinically regarding patient's ability to void and exclude underlying functional outlet obstruction/neurogenic bladde Assessment/Plan Assessment/Plan In summary this 37-year-old gentleman was admitted with the following problems 1. Pneumonia currently on treatment 2. Nephrotic syndrome nephrology service on board. Probably related to diabetic nephropathy. 3. Hypertension probably related to renal disease 4. Volume overload probably related to nephrotic syndrome. 5. Morbidly obese 6. Mild to moderate pulmonary hypertension. This could be related to sleep apnea obesity or renal disease. I believe this is secondary pulmonary hypertension. Continue with diuretic regimen for the moment. His echocardiogram shows normal left ventricle systolic function with moderate LBH. LVH probably related to hypertension and weight. Moderate pulmonary hypertension noted with right with a systolic pressure of about 50 mmHg. At this time I do not suspect any significant cardiac issues. I would try and decrease amlodipine to 5 mg a day as any edema related to the medication might create some confusion with his existing volume overload. RODO inhibitors are currently on hold. Diuretics per renal. Thank you for allowing me the opportunity of participating in his care Consult Acknowledgment - Thank you for your consult request.
[2017-09-10 08:44] LABS: PT 10.8 SEC (9.4-12.5)
--- NOTE | 2017-09-10 08:49 | PN- Pulmonary ---
Subjective HPI/Critical Care Issues: Clinical status remains unchanged. Thoracentesis is pending Objective Current Medications: Current Medications Sig/Jozef Start time Last Medication Dose Route Stop Time Status Admin Albuterol Sulfate 3 ML BID 09/09 2200 AC 09/09 INH 1919 Amlodipine Besylate 10 MG DAILY 09/09 1000 AC 09/09 PO 1059 Atorvastatin Calcium 80 MG 1700 09/09 1700 AC 09/09 PO 1558 Azithromycin 500 MG DAILY 09/09 1000 AC 09/09 Dextrose/Water 250 ML IV 1101 Calcium/Vitamin D 500 MG DAILY 09/09 1000 AC 09/09 PO 1058 Ceftriaxone Sodium 1,000 MG DAILY 09/09 1000 AC 09/09 IV 1100 Heparin Sodium 5,000 UNIT Q8 09/09 1445 DC 09/10 (Porcine) SC 09/10 0600 0634 Hydralazine HCl 100 MG BID 09/08 2200 AC 09/09 PO 2227 Insulin Aspart 0 TIDAC 09/09 0800 AC 09/09 SC 0837 Insulin Aspart 0 AT BEDTIME 09/08 2200 AC 09/08 SC 2155 Insulin Detemir 10 UNITS QPM 09/08 2200 AC 09/09 SC 2227 Lisinopril 40 MG DAILY 09/09 1000 DC 09/09 PO 1058 Metoprolol Tartrate 100 MG BID 09/08 2200 AC 09/09 PO 2226 Silver Sulfadiazine 1 MARLON DAILY 09/10 1000 AC TOP Sodium Bicarbonate 650 MG BID 09/08 2200 AC 09/09 PO 2226 Sodium Chloride 1,000 ML Q13H 09/09 1445 DC 09/09 IV 1558 Vital Signs & I&O Last 24 Hrs of Vitals and I&O: Vital Signs Date Time Temp Pulse Resp B/P B/P Pulse O2 O2 Flow FiO2 Mean Ox Delivery Rate 09/10 0638 98.4 63 20 160/80 94 Room Air 09/10 0000 Nasal 3.0L Cannula 09/09 2226 71 138/68 09/09 2226 71 138/68 09/09 2216 98.7 71 20 138/68 92 Nasal Cannula 09/09 1919 94 Nasal 3.0L Cannula 09/09 1600 96 Nasal 3.0L Cannula 09/09 1448 98.7 84 20 140/80 92 Nasal 3.0L Cannula 09/09 1102 Nasal 3.0L Cannula 09/09 1059 68 150/68 09/09 1059 68 150/68 09/09 1059 68 150/68 09/09 1058 68 150/60 09/09 1054 94 Nasal 3.0L Cannula Intake & Output 09/10 1600 09/10 0800 09/10 0000 Intake Total Output Total 800 Balance -800 Output, Urine 800 Oxygen saturation 3 L 92% exam of his chest shows diminished breath sounds at the bases and crackles cardiac exam shows regular S1 and S2 there is persistent edema Impression/Plan Impression/Plan Impression/Plan: 37-year-old gentleman with chronic kidney disease and nephrotic syndrome presents with volume overload. He remains afebrile with normal white count. Await thoracentesis. If pleural fluid is transudate of which suggest more aggressive diuresis as renal function allows her discontinuing antibiotics for pneumonia. Recommendations: Diagnostic and therapeutic right thoracentesis.
[2017-09-10 08:54] LABS: ABSOLUTE BASOPHIL COUNT 0.1 /CUMM (0.0-0.2); ABSOLUTE LYMPH COUNT 1.9 /CUMM (1.2-3.4)
[2017-09-10 09:02] LABS: ABSOLUTE EOSINOPHIL COUNT 0 /CUMM (0.0-0.7); ABSOLUTE MONOCYTE COUNT 1.5 /CUMM (0.10-0.60); BASOPHIL % 0.4 % (0.0-2.0); EOSINOPHIL % 0.3 % (0-5); GRANULOCYTE % 72.4 % (42.2-75.2); HEMATOCRIT 31.3 % (42-52); MEAN CORPUSCULAR HGB CONC 33.5 G/DL (33.0-37.0); MEAN CORPUSCULAR VOLUME 86.8 FL (80.0-94.0); MEAN PLATELET VOLUME 9.6 FL (7.4-10.4); PLATELET COUNT 328 /CUMM (130-400); RBC DISTRIBUTION WIDTH 13.4 % (11.5-14.5); RED BLOOD CELL CT 3.61 /CUMM (4.70-6.10)
[2017-09-10 09:34] LABS: WHITE BLOOD CELL COUNT 12.4 /CUMM (4.8-10.8)
[2017-09-10 09:47] VITALS: BP 188/78
--- NOTE | 2017-09-10 10:03 | PN- Podiatry ---
Subjective Subjective: 37 y/o male seen and evaluated at bedside with his mother for f/u on a large bullous wound on the plantar-lateral right midfoot. Pt is currently NPO for thoracentesis later today to treat PNA. Pt denifes f/c/n/v/d/sob/cp at the time of my examination. Objective Vital Signs and I&Os Vital Signs Date Time Temp Pulse Resp B/P B/P Pulse O2 O2 Flow FiO2 Mean Ox Delivery Rate 09/10 0847 63 188/78 09/10 0836 64 188/78 09/10 0935 64 188/78 09/10 0916 95 Nasal 2.5L Cannula 09/10 0638 98.4 63 20 160/80 94 Room Air 09/10 0000 Nasal 3.0L Cannula 09/09 2227 71 138/68 09/09 2226 71 138/68 09/09 2216 98.7 71 20 138/68 92 Nasal Cannula 09/09 1919 94 Nasal 3.0L Cannula 09/09 1600 96 Nasal 3.0L Cannula 09/09 1448 98.7 84 20 140/80 92 Nasal 3.0L Cannula 09/09 1102 Nasal 3.0L Cannula 09/09 1059 68 150/68 09/09 1059 68 150/68 09/09 1059 68 150/68 09/09 1058 68 150/60 09/09 1054 94 Nasal 3.0L Cannula Intake & Output 09/10 1600 09/10 0800 09/10 0000 09/09 1600 09/09 0800 09/09 0000 Intake Total 730 200 160 Output Total 800 800 Balance -800 -70 200 160 Intake, IV 250 0 10 Intake, Oral 480 200 150 Number 1 1 Bowel Movements Output, Urine 800 800 Patient 360 lb Weight Weight Reported by Patient Measurement Method Physical Exam: Neurovascular status unchanged. The large bulla has begun to epithelialize at the margins and there is still two small foci of sloughing dermis. No malodor, no drainage, no purulence, no fluctuance, no crepitus. Current Medications: Current Medications Sig/Jozef Start time Last Medication Dose Route Stop Time Status Admin Albuterol Sulfate 3 ML BID 09/09 2200 AC 09/10 INH 0914 Amlodipine Besylate 5 MG DAILY 09/10 0900 AC PO Amlodipine Besylate 10 MG DAILY 09/09 1000 DC 09/09 PO 1059 Atorvastatin Calcium 80 MG 1700 09/09 1700 AC 09/09 PO 1558 Azithromycin 500 MG DAILY 09/09 1000 AC 09/10 Dextrose/Water 250 ML IV 0937 Calcium/Vitamin D 500 MG DAILY 09/09 1000 AC 09/10 PO 0937 Ceftriaxone Sodium 1,000 MG DAILY 09/09 1000 AC 09/10 IV 0937 Guaifenesin 600 MG BID 09/10 1000 AC PO Heparin Sodium 5,000 UNIT Q8 09/09 1445 DC 09/10 (Porcine) SC 09/10 0600 0634 Hydralazine HCl 100 MG BID 09/08 2200 AC 09/10 PO 0935 Insulin Aspart 0 TIDAC 09/09 0800 AC 09/09 SC 0837 Insulin Aspart 0 AT BEDTIME 09/08 2200 AC 09/08 SC 2155 Insulin Detemir 10 UNITS QPM 09/08 2200 AC 09/09 SC 2227 Lisinopril 40 MG DAILY 09/09 1000 DC 09/09 PO 1058 Metoprolol Tartrate 100 MG BID 09/08 2200 AC 09/10 PO 0936 Silver Sulfadiazine 1 MARLON DAILY 09/10 1000 AC TOP Sodium Bicarbonate 650 MG BID 09/08 2200 AC 09/10 PO 0936 Sodium Chloride 1,000 ML Q13H 09/09 1445 DC 09/09 IV 1558 Results Last 48 Hours of Labs: Laboratory Tests 09/10 09/09 0805 1605 Chemistry Sodium (137 - 145 mmol/L) 133 L Potassium (3.5 - 5.1 mmol/L) 3.9 Chloride (98 - 107 mmol/L) 105 Carbon Dioxide (22 - 30 mmol/L) 15 L Anion Gap (5 - 16) 12 BUN (9 - 20 mg/dL) 63 H Creatinine (0.7 - 1.2 mg/dL) 3.2 H Estimated GFR (>60 ml/min) 22 L BUN/Creatinine Ratio (7 - 25 %) 19.7 Hemoglobin A1c (4.2 - 5.8 %) 6.2 H Calcium (8.4 - 10.2 mg/dL) 7.7 L Phosphorus (2.5 - 4.5 mg/dL) 5.3 H Magnesium (1.6 - 2.3 mg/dL) 2.2 Total Bilirubin (0.2 - 1.3 mg/dL) 0.3 Direct Bilirubin (< 0.4 mg/dL) 0.3 AST (17 - 59 U/L) 83 H ALT (21 - 72 U/L) 46 Alkaline Phosphatase (< 127 U/L) 67 Total Protein (6.3 - 8.2 g/dL) 5.6 L Albumin (3.5 - 5.0 g/dL) 2.5 L Coagulation PT (9.4 - 12.5 SEC) 10.8 11.6 INR (0.90 - 1.17) 0.99 1.06 Hematology CBC w Diff NO MAN DIFF REQ WBC (4.8 - 10.8 /CUMM) 12.4 H RBC (4.70 - 6.10 /CUMM) 3.61 L Hgb (14.0 - 18.0 G/DL) 10.5 L Hct (42 - 52 %) 31.3 L MCV (80.0 - 94.0 FL) 86.8 MCH (27.0 - 31.0 PG) 29.0 MCHC (33.0 - 37.0 G/DL) 33.5 RDW (11.5 - 14.5 %) 13.4 Plt Count (130 - 400 /CUMM) 328 MPV (7.4 - 10.4 FL) 9.6 Gran % (42.2 - 75.2 %) 72.4 Lymphocytes % (20.5 - 51.1 %) 15.0 L Monocytes % (1.7 - 9.3 %) 11.9 H Eosinophils % (0 - 5 %) 0.3 Basophils % (0.0 - 2.0 %) 0.4 Absolute Granulocytes (1.4 - 6.5 /CUMM) 9.0 H Absolute Lymphocytes (1.2 - 3.4 /CUMM) 1.9 Absolute Monocytes (0.10 - 0.60 /CUMM) 1.5 H Absolute Eosinophils (0.0 - 0.7 /CUMM) 0 Absolute Basophils (0.0 - 0.2 /CUMM) 0.1 Immunology ANCA Pending 09/09 09/09 1435 0900 Chemistry Sodium (137 - 145 mmol/L) 131 L Potassium (3.5 - 5.1 mmol/L) 4.1 Chloride (98 - 107 mmol/L) 104 Carbon Dioxide (22 - 30 mmol/L) 16 L Anion Gap (5 - 16) 11 BUN (9 - 20 mg/dL) 52 H Creatinine (0.7 - 1.2 mg/dL) 3.1 H Estimated GFR (>60 ml/min) 23 L BUN/Creatinine Ratio (7 - 25 %) 16.8 Total Bilirubin (0.2 - 1.3 mg/dL) 0.2 Direct Bilirubin (< 0.4 mg/dL) 0.2 AST (17 - 59 U/L) 80 H ALT (21 - 72 U/L) 45 Alkaline Phosphatase (< 127 U/L) 67 Creatine Kinase (55 - 170 U/L) 2832 H Total Protein (6.3 - 8.2 g/dL) 5.5 L Albumin (3.5 - 5.0 g/dL) 2.4 L Hematology CBC w Diff NO MAN DIFF REQ WBC (4.8 - 10.8 /CUMM) 6.3 RBC (4.70 - 6.10 /CUMM) 3.61 L Hgb (14.0 - 18.0 G/DL) 10.4 L Hct (42 - 52 %) 31.6 L MCV (80.0 - 94.0 FL) 87.7 MCH (27.0 - 31.0 PG) 28.8 MCHC (33.0 - 37.0 G/DL) 32.9 L RDW (11.5 - 14.5 %) 13.4 Plt Count (130 - 400 /CUMM) 294 MPV (7.4 - 10.4 FL) 9.2 Gran % (42.2 - 75.2 %) 79.6 H Lymphocytes % (20.5 - 51.1 %) 10.1 L Monocytes % (1.7 - 9.3 %) 10.2 H Eosinophils % (0 - 5 %) 0 Basophils % (0.0 - 2.0 %) 0.1 Absolute Granulocytes (1.4 - 6.5 /CUMM) 5.0 Absolute Lymphocytes (1.2 - 3.4 /CUMM) 0.6 L Absolute Monocytes (0.10 - 0.60 /CUMM) 0.6 Absolute Eosinophils (0.0 - 0.7 /CUMM) 0 Absolute Basophils (0.0 - 0.2 /CUMM) 0 Urines Urine Color (YEL,AMB,STR) YEL Urine Clarity (CLEAR) HAZY H Urine pH (5.0 - 8.0) 6.0 Ur Specific [place] (1.001 - 1.035) 1.025 Urine Protein (NEG,<30 MG/DL) >=300 H Urine Ketones (NEG) NEG Urine Nitrite (NEG) NEG Urine Bilirubin (NEG) NEG Urine Urobilinogen (0.1 - 1.0 EU/dl) 0.2 Ur Leukocyte Esterase (NEG) NEG Ur Microscopic SEDIMENT EXAMINED Urine RBC (0 - 5 /HPF) RARE Urine WBC (0 - 2 /HPF) RARE Urine Bacteria (NEG/NONE) PACKD H Hyaline Casts (0/LPF) 1-3 H Granular Casts (NONE /LPF) 5-10 H Urine Hemoglobin (NEG) SMALL H Urine Glucose (N MG/DL) 500 H 09/08 09/08 09/08 2220 2100 1520 Chemistry Sodium (137 - 145 mmol/L) Cancelled 131 L Potassium (3.5 - 5.1 mmol/L) 4.0 Chloride (98 - 107 mmol/L) 105 Carbon Dioxide (22 - 30 mmol/L) 14 L Anion Gap (5 - 16) 12 BUN (9 - 20 mg/dL) 42 H Creatinine (0.7 - 1.2 mg/dL) 2.6 H Estimated GFR (>60 ml/min) 28 L BUN/Creatinine Ratio (7 - 25 %) 16.2 Glucose (65 - 99 mg/dL) 119 H Lactic Acid (0.7 - 2.1 mmol/L) 0.9 0.5 L Calcium (8.4 - 10.2 mg/dL) 7.9 L Total Bilirubin (0.2 - 1.3 mg/dL) 0.5 AST (17 - 59 U/L) 94 H ALT (21 - 72 U/L) 42 Alkaline Phosphatase (< 127 U/L) 70 Troponin I (<0.11 ng/ml) 0.04 [id number] Pept (<125 pg/mL) 2170 H Total Protein (6.3 - 8.2 g/dL) 5.7 L Albumin (3.5 - 5.0 g/dL) 2.6 L Globulin (1.9 - 4.2 gm/dL) 3.1 Albumin/Globulin Ratio (1.1 - 2.2 %) 0.8 L 25-OH Vitamin D Total (30 - 100 ng/ml) 15.8 L Hematology CBC w Diff NO MAN DIFF REQ WBC (4.8 - 10.8 /CUMM) 9.2 RBC (4.70 - 6.10 /CUMM) 3.77 L Hgb (14.0 - 18.0 G/DL) 11.1 L Hct (42 - 52 %) 33.0 L MCV (80.0 - 94.0 FL) 87.6 MCH (27.0 - 31.0 PG) 29.6 MCHC (33.0 - 37.0 G/DL) 33.8 RDW (11.5 - 14.5 %) 14.0 Plt Count (130 - 400 /CUMM) 288 MPV (7.4 - 10.4 FL) 9.6 Gran % (42.2 - 75.2 %) 88.3 H Lymphocytes % (20.5 - 51.1 %) 7.0 L Monocytes % (1.7 - 9.3 %) 4.4 Eosinophils % (0 - 5 %) 0.1 Basophils % (0.0 - 2.0 %) 0.2 Absolute Granulocytes (1.4 - 6.5 /CUMM) 8.1 H Absolute Lymphocytes (1.2 - 3.4 /CUMM) 0.6 L Absolute Monocytes (0.10 - 0.60 /CUMM) 0.4 Absolute Eosinophils (0.0 - 0.7 /CUMM) 0 Absolute Basophils (0.0 - 0.2 /CUMM) 0 09/08 1225 Chemistry Sodium Cancelled Potassium Cancelled Chloride Cancelled Carbon Dioxide Cancelled Anion Gap Cancelled BUN Cancelled Creatinine Cancelled BUN/Creatinine Ratio Cancelled Glucose Cancelled Calcium Cancelled Total Bilirubin Cancelled AST Cancelled ALT Cancelled Alkaline Phosphatase Cancelled Aea-I-Cemharwpluw Pept Cancelled Total Protein Cancelled Albumin Cancelled Globulin Cancelled Albumin/Globulin Ratio Cancelled Recent Imaging Studies: XR right foot There is substantial remodeling, exostoses, and joint space narrowing consistent with neuropathic arthropathy, but without significant collapse. There is no gas. No acute fractures. 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 chronic osteomyelitis. Pt seen and evaluated SSD + Adaptic dressing applied to wound XR reviewed with patient and his mother at bedside. I informed them that it will be difficult to distinguish Charcot vs. chronic OM on X-ray and that we will consider more imaging. Would recommend MRI to further distinguish the two when pt is stable systemically. I offered an open bone biopsy of the 5th metatarsal to confirm the suspcisions on the radiology report, and the patient declined this for now. I also went over various treatment of Charcot, including Achilles lengthening, bracing, and reconstruction. He was instructed not to bear weight on this foot until further notice, and we will XR the contralateral side for completeness, and to assure he can stably WB on the LLE if in fact we have to immobilize the RLE. I will f/u on the patient later today after his procedure and discuss the condition further. Core Measures Venous Thromboembolism VTE Risk Factors Acute Medical Illness No Mechanical VTE Prophylaxis d/t Other No VTE Pharm Prophylaxis d/t NA PharmProphylax ordered
--- NOTE | 2017-09-10 10:23 | PN- Nephrology ---
Assessment/Plan Nephrology Assessment: 1. LUCA: stable - etiology unclear: still total body volume overloaded w edema & doubt IV hypovolemia but nephrotic syndrome makes IV volume assessment difficult. Can't exclude ATN in setting of infection & mild rhabdo. Concern for neurogenic bladder leading to retention & needs serial bladder Doppler w straight cath if PVR 300 ml or more. Doubt vasculitis but ANCA pending. No renal replacement indication & would continue to hold RAAS interruption & diuretic for now. 2. CKD: mod/severe, stage 3B, due to presumed diabetic nephropathy 3. Nephrotic syndrome: presumed due to DN; will eventually need ACEI restarted 4. Met acid: chronic & stable --> needs higher dose Na bicarb 5. HypoCa: prob appropriate for serum Alb; needs phos binder Suggestion: 1. increase Na bicarb 1300 mg po bid 2. bladder Doppler q shift --> if PVR >/= 300 ml --> straight cath 3. sevelamer 8000 mg w meals Subjective Subjective: Still coughing - noproduvtive w/o hemoptysis Diarrhea better Voiding now & denies retention sx despite hi residual urine in bladder on US Objective Vital Signs and I&Os Vital Signs Date Time Temp Pulse Resp B/P B/P Pulse O2 O2 Flow FiO2 Mean Ox Delivery Rate 09/10 0947 63 188/78 09/10 0936 64 188/78 09/10 0935 64 188/78 09/10 0916 95 Nasal 2.5L Cannula 09/10 0638 98.4 63 20 160/80 94 Room Air 09/10 0000 Nasal 3.0L Cannula 09/09 2227 71 138/68 09/09 2226 71 138/68 09/09 2216 98.7 71 20 138/68 92 Nasal Cannula 09/09 1919 94 Nasal 3.0L Cannula 09/09 1600 96 Nasal 3.0L Cannula 09/09 1448 98.7 84 20 140/80 92 Nasal 3.0L Cannula 09/09 1102 Nasal 3.0L Cannula 09/09 1059 68 150/68 09/09 1059 68 150/68 09/09 1059 68 150/68 09/09 1058 68 150/60 09/09 1054 94 Nasal 3.0L Cannula Intake & Output 09/10 1600 09/10 0400 09/09 1600 09/09 0400 09/08 1600 09/08 0400 Intake Total 930 160 240 Output Total 800 800 Balance -800 130 160 240 Intake, IV 250 10 Intake, Oral 680 150 240 Number 2 Bowel Movements Output, Urine 800 800 Patient 360 lb 360 lb Weight Weight Reported by Patient Estimated Measurement Method Physical Exam General Appearance: no apparent distress, obese Head: atraumatic, normal appearance Ears, Nose, Throat: normal ENT inspection Neck: normal inspection Respiratory: no respiratory distress, quiet respiration, rhonchi Cardiovascular: regular rate/rhythm, edema Abdomen: soft, non-tender, no organomegaly Extremities: swelling, R ft dressed Neurologic/Psychiatric: awake, alert, oriented x 3 Skin: intact Lymphatic: no anterior cervical severo Current Medications: Current Medications Sig/Jozef Start time Last Medication Dose Route Stop Time Status Admin Albuterol Sulfate 3 ML BID 09/09 2200 AC 09/10 INH 0914 Amlodipine Besylate 5 MG DAILY 09/10 0900 AC PO Amlodipine Besylate 10 MG DAILY 09/09 1000 DC 09/09 PO 1059 Atorvastatin Calcium 80 MG 1700 09/09 1700 AC 09/09 PO 1558 Azithromycin 500 MG DAILY 09/09 1000 AC 09/10 Dextrose/Water 250 ML IV 0937 Calcium/Vitamin D 500 MG DAILY 09/09 1000 AC 09/10 PO 0937 Ceftriaxone Sodium 1,000 MG DAILY 09/09 1000 AC 09/10 IV 0937 Guaifenesin 600 MG BID 09/10 1000 AC PO Heparin Sodium 5,000 UNIT Q8 09/09 1445 DC 09/10 (Porcine) SC 09/10 0600 0634 Hydralazine HCl 100 MG BID 09/08 2200 AC 09/10 PO 0935 Insulin Aspart 0 TIDAC 09/09 0800 AC 09/09 SC 0837 Insulin Aspart 0 AT BEDTIME 09/08 2200 AC 09/08 SC 2155 Insulin Detemir 10 UNITS QPM 09/08 2200 AC 09/09 SC 2227 Lisinopril 40 MG DAILY 09/09 1000 DC 09/09 PO 1058 Metoprolol Tartrate 100 MG BID 09/08 2200 AC 09/10 PO 0936 Silver Sulfadiazine 1 MARLON DAILY 09/10 1000 AC TOP Sodium Bicarbonate 650 MG BID 09/08 2200 AC 09/10 PO 0936 Sodium Chloride 1,000 ML Q13H 09/09 1445 DC 09/09 IV 1558 Results Pertinent Lab Results: Laboratory Tests 09/10 09/09 0805 1605 Chemistry Sodium (137 - 145 mmol/L) 133 L Potassium (3.5 - 5.1 mmol/L) 3.9 Chloride (98 - 107 mmol/L) 105 Carbon Dioxide (22 - 30 mmol/L) 15 L Anion Gap (5 - 16) 12 BUN (9 - 20 mg/dL) 63 H Creatinine (0.7 - 1.2 mg/dL) 3.2 H Estimated GFR (>60 ml/min) 22 L BUN/Creatinine Ratio (7 - 25 %) 19.7 Hemoglobin A1c (4.2 - 5.8 %) 6.2 H Calcium (8.4 - 10.2 mg/dL) 7.7 L Phosphorus (2.5 - 4.5 mg/dL) 5.3 H Magnesium (1.6 - 2.3 mg/dL) 2.2 Total Bilirubin (0.2 - 1.3 mg/dL) 0.3 Direct Bilirubin (< 0.4 mg/dL) 0.3 AST (17 - 59 U/L) 83 H ALT (21 - 72 U/L) 46 Alkaline Phosphatase (< 127 U/L) 67 Total Protein (6.3 - 8.2 g/dL) 5.6 L Albumin (3.5 - 5.0 g/dL) 2.5 L Coagulation PT (9.4 - 12.5 SEC) 10.8 11.6 INR (0.90 - 1.17) 0.99 1.06 Hematology CBC w Diff NO MAN DIFF REQ WBC (4.8 - 10.8 /CUMM) 12.4 H RBC (4.70 - 6.10 /CUMM) 3.61 L Hgb (14.0 - 18.0 G/DL) 10.5 L Hct (42 - 52 %) 31.3 L MCV (80.0 - 94.0 FL) 86.8 MCH (27.0 - 31.0 PG) 29.0 MCHC (33.0 - 37.0 G/DL) 33.5 RDW (11.5 - 14.5 %) 13.4 Plt Count (130 - 400 /CUMM) 328 MPV (7.4 - 10.4 FL) 9.6 Gran % (42.2 - 75.2 %) 72.4 Lymphocytes % (20.5 - 51.1 %) 15.0 L Monocytes % (1.7 - 9.3 %) 11.9 H Eosinophils % (0 - 5 %) 0.3 Basophils % (0.0 - 2.0 %) 0.4 Absolute Granulocytes (1.4 - 6.5 /CUMM) 9.0 H Absolute Lymphocytes (1.2 - 3.4 /CUMM) 1.9 Absolute Monocytes (0.10 - 0.60 /CUMM) 1.5 H Absolute Eosinophils (0.0 - 0.7 /CUMM) 0 Absolute Basophils (0.0 - 0.2 /CUMM) 0.1 Immunology ANCA Pending 09/09 09/09 1435 0900 Chemistry Sodium (137 - 145 mmol/L) 131 L Potassium (3.5 - 5.1 mmol/L) 4.1 Chloride (98 - 107 mmol/L) 104 Carbon Dioxide (22 - 30 mmol/L) 16 L Anion Gap (5 - 16) 11 BUN (9 - 20 mg/dL) 52 H Creatinine (0.7 - 1.2 mg/dL) 3.1 H Estimated GFR (>60 ml/min) 23 L BUN/Creatinine Ratio (7 - 25 %) 16.8 Total Bilirubin (0.2 - 1.3 mg/dL) 0.2 Direct Bilirubin (< 0.4 mg/dL) 0.2 AST (17 - 59 U/L) 80 H ALT (21 - 72 U/L) 45 Alkaline Phosphatase (< 127 U/L) 67 Creatine Kinase (55 - 170 U/L) 2832 H Total Protein (6.3 - 8.2 g/dL) 5.5 L Albumin (3.5 - 5.0 g/dL) 2.4 L Hematology CBC w Diff NO MAN DIFF REQ WBC (4.8 - 10.8 /CUMM) 6.3 RBC (4.70 - 6.10 /CUMM) 3.61 L Hgb (14.0 - 18.0 G/DL) 10.4 L Hct (42 - 52 %) 31.6 L MCV (80.0 - 94.0 FL) 87.7 MCH (27.0 - 31.0 PG) 28.8 MCHC (33.0 - 37.0 G/DL) 32.9 L RDW (11.5 - 14.5 %) 13.4 Plt Count (130 - 400 /CUMM) 294 MPV (7.4 - 10.4 FL) 9.2 Gran % (42.2 - 75.2 %) 79.6 H Lymphocytes % (20.5 - 51.1 %) 10.1 L Monocytes % (1.7 - 9.3 %) 10.2 H Eosinophils % (0 - 5 %) 0 Basophils % (0.0 - 2.0 %) 0.1 Absolute Granulocytes (1.4 - 6.5 /CUMM) 5.0 Absolute Lymphocytes (1.2 - 3.4 /CUMM) 0.6 L Absolute Monocytes (0.10 - 0.60 /CUMM) 0.6 Absolute Eosinophils (0.0 - 0.7 /CUMM) 0 Absolute Basophils (0.0 - 0.2 /CUMM) 0 Urines Urine Color (YEL,AMB,STR) YEL Urine Clarity (CLEAR) HAZY H Urine pH (5.0 - 8.0) 6.0 Ur Specific [place] (1.001 - 1.035) 1.025 Urine Protein (NEG,<30 MG/DL) >=300 H Urine Ketones (NEG) NEG Urine Nitrite (NEG) NEG Urine Bilirubin (NEG) NEG Urine Urobilinogen (0.1 - 1.0 EU/dl) 0.2 Ur Leukocyte Esterase (NEG) NEG Ur Microscopic SEDIMENT EXAMINED Urine RBC (0 - 5 /HPF) RARE Urine WBC (0 - 2 /HPF) RARE Urine Bacteria (NEG/NONE) PACKD H Hyaline Casts (0/LPF) 1-3 H Granular Casts (NONE /LPF) 5-10 H Urine Hemoglobin (NEG) SMALL H Urine Glucose (N MG/DL) 500 H 09/08 09/08 09/08 2220 2100 1520 Chemistry Sodium (137 - 145 mmol/L) Cancelled 131 L Potassium (3.5 - 5.1 mmol/L) 4.0 Chloride (98 - 107 mmol/L) 105 Carbon Dioxide (22 - 30 mmol/L) 14 L Anion Gap (5 - 16) 12 BUN (9 - 20 mg/dL) 42 H Creatinine (0.7 - 1.2 mg/dL) 2.6 H Estimated GFR (>60 ml/min) 28 L BUN/Creatinine Ratio (7 - 25 %) 16.2 Glucose (65 - 99 mg/dL) 119 H Lactic Acid (0.7 - 2.1 mmol/L) 0.9 0.5 L Calcium (8.4 - 10.2 mg/dL) 7.9 L Total Bilirubin (0.2 - 1.3 mg/dL) 0.5 AST (17 - 59 U/L) 94 H ALT (21 - 72 U/L) 42 Alkaline Phosphatase (< 127 U/L) 70 Troponin I (<0.11 ng/ml) 0.04 Kaz-[id number]-Gqkoukmmzni Pept (<125 pg/mL) 2170 H Total Protein (6.3 - 8.2 g/dL) 5.7 L Albumin (3.5 - 5.0 g/dL) 2.6 L Globulin (1.9 - 4.2 gm/dL) 3.1 Albumin/Globulin Ratio (1.1 - 2.2 %) 0.8 L 25-OH Vitamin D Total (30 - 100 ng/ml) 15.8 L Hematology CBC w Diff NO MAN DIFF REQ WBC (4.8 - 10.8 /CUMM) 9.2 RBC (4.70 - 6.10 /CUMM) 3.77 L Hgb (14.0 - 18.0 G/DL) 11.1 L Hct (42 - 52 %) 33.0 L MCV (80.0 - 94.0 FL) 87.6 MCH (27.0 - 31.0 PG) 29.6 MCHC (33.0 - 37.0 G/DL) 33.8 RDW (11.5 - 14.5 %) 14.0 Plt Count (130 - 400 /CUMM) 288 MPV (7.4 - 10.4 FL) 9.6 Gran % (42.2 - 75.2 %) 88.3 H Lymphocytes % (20.5 - 51.1 %) 7.0 L Monocytes % (1.7 - 9.3 %) 4.4 Eosinophils % (0 - 5 %) 0.1 Basophils % (0.0 - 2.0 %) 0.2 Absolute Granulocytes (1.4 - 6.5 /CUMM) 8.1 H Absolute Lymphocytes (1.2 - 3.4 /CUMM) 0.6 L Absolute Monocytes (0.10 - 0.60 /CUMM) 0.4 Absolute Eosinophils (0.0 - 0.7 /CUMM) 0 Absolute Basophils (0.0 - 0.2 /CUMM) 0 09/08 1225 Chemistry Sodium Cancelled Potassium Cancelled Chloride Cancelled Carbon Dioxide Cancelled Anion Gap Cancelled BUN Cancelled Creatinine Cancelled BUN/Creatinine Ratio Cancelled Glucose Cancelled Calcium Cancelled Total Bilirubin Cancelled AST Cancelled ALT Cancelled Alkaline Phosphatase Cancelled Aug-J-Yxjfmszzfjn Pept Cancelled Total Protein Cancelled Albumin Cancelled Globulin Cancelled Albumin/Globulin Ratio Cancelled Imaging/Other Studies: Renal US: RIGHT KIDNEY: 14.6 x 6.4 x 6.2 cm (SAG x AP x TRV) versus 14.9 x 7.4 x 7.6 cm (03/06/2017). The kidney is normal in size, contour, and echogenicity. Renal cortical thickness is normal. No calculi or focal parenchymal lesions. No hydronephrosis. LEFT KIDNEY: 13.8 x 6.8 x 4.9 cm (SAG x AP x TRV). The kidney is normal in size, contour, and echogenicity. Renal cortical thickness is normal. No calculi or focal parenchymal lesions. No hydronephrosis. BLADDER: Well-distended and normal. Bilateral ureteral jets are not demonstrated. Prevoid bladder volume is 691 mL. Postvoid bladder residual could not be assessed, as the patient was unable to void. CT: There is airspace disease involving both lungs consistent with pneumonia. There is a right pleural effusion that comprises approximately 25% of the right hemithoracic volume and a trace left effusion. Multiple relatively prominent mediastinal lymph nodes are likely reactive. R Ft: IMPRESSION: Findings localized to the styloid process of the right foot that are consistent with chronic osteomyelitis.
--- NOTE | 2017-09-10 10:57 | PN- Housestaff ---
Subjective Follow-up For: ?Bilateral lower lobe pneumonia with pleural effusions Lower extremity edema Hyponatremia LUCA on CKD Subjective: No acute events overnight. Awaiting thoracocentesis. Review of Systems Constitutional: Reports: see HPI. Objective Last 24 Hrs of Vital Signs/I&O Vital Signs Date Time Temp Pulse Resp B/P B/P Pulse O2 O2 Flow FiO2 Mean Ox Delivery Rate 09/10 1834 94 Nasal 2.0L Cannula 09/10 1655 97.9 64 20 170/98 92 09/10 1634 97.9 64 20 170/98 92 09/10 1222 64 146/72 09/10 1144 64 146/72 09/10 0947 63 188/78 09/10 0936 64 188/78 09/10 0935 64 188/78 09/10 0916 95 Nasal 2.5L Cannula 09/10 0800 94 Nasal 2.5L Cannula 09/10 0638 98.4 63 20 160/80 94 Room Air 09/10 0000 Nasal 3.0L Cannula 09/09 2227 71 138/68 09/09 2226 71 138/68 09/09 2216 98.7 71 20 138/68 92 Nasal Cannula 09/09 1919 94 Nasal 3.0L Cannula Intake & Output 09/10 1600 09/10 0800 09/10 0000 Intake Total Output Total 1600 Balance -1600 Output, Urine 1600 Physical Exam General Appearance: Alert, Oriented X3, Cooperative Cardiovascular: Regular Rate, Normal S1, Normal S2 Lungs: diffuse rhonchi and crackles Abdomen: Normal Bowel Sounds, Soft, No Tenderness Extremities: 4+ lower extremity edema bilaterally. R foot covered in dressing. Vascular: 2+ radial pulses Current Medications: Current Medications Sig/Jozef Start time Last Medication Dose Route Stop Time Status Admin Albuterol Sulfate 3 ML BID 09/09 2200 AC 09/10 INH 1831 Amlodipine Besylate 5 MG DAILY 09/10 0900 AC 09/10 PO 1222 Amlodipine Besylate 10 MG DAILY 09/09 1000 DC 09/09 PO 1059 Atorvastatin Calcium 80 MG 1700 09/09 1700 AC 09/10 PO 1734 Azithromycin 500 MG DAILY 09/09 1000 AC 09/10 Dextrose/Water 250 ML IV 0937 Calcium/Vitamin D 500 MG DAILY 09/09 1000 AC 09/10 PO 0937 Ceftriaxone Sodium 1,000 MG DAILY 09/09 1000 AC 09/10 IV 0937 Guaifenesin 600 MG BID 09/10 1000 AC 09/10 PO 1222 Heparin Sodium 5,000 UNIT Q8 09/09 1445 DC 09/10 (Porcine) SC 09/10 0600 0634 Hydralazine HCl 100 MG TID 09/10 2100 AC PO Hydralazine HCl 100 MG BID 09/08 2200 DC 09/10 PO 0935 Insulin Aspart 0 TIDAC 09/09 0800 AC 09/09 SC 0837 Insulin Aspart 0 AT BEDTIME 09/08 2200 AC 09/08 SC 2155 Insulin Detemir 10 UNITS QPM 09/08 2200 AC 09/09 SC 2227 Lidocaine 1 ML .STK-MED ONE 09/10 1459 DC ID 09/10 1500 Metoprolol Tartrate 100 MG BID 09/08 2200 AC 09/10 PO 0936 Sevelamer Carbonate 800 MG WITH MEALS 09/10 1700 AC 09/10 PO 1735 Silver Sulfadiazine 1 MARLON DAILY 09/10 1000 AC TOP Sodium Bicarbonate 1,300 MG BID 09/10 2100 AC PO Sodium Bicarbonate 650 MG BID 09/08 2200 DC 09/10 PO 0936 Sodium Chloride 1,000 ML Q13H 09/09 1445 DC 09/09 IV 1558 Last 24 Hrs of Lab/Bryce Results Last 24 Hrs of Labs/Mics: Laboratory Tests 09/10/17 1430: Pleural pH 7.37 09/10/17 1430: Fluid WBC 53 H, Fld Total RBCs Counted 59 H 09/10/17 1430: Lymphocytes 21, % Normal PMNs 4, Misc Hematology Test , Phlebotomy Draw Site RT THORA, Fluid Glucose 132, Fluid LDH 251, Fluid Cholesterol < 50 09/10/17 0805: Anion Gap 12, Estimated GFR 22 L, BUN/Creatinine Ratio 19.7, Hemoglobin A1c 6.2 H, Calcium 7.7 L, Phosphorus 5.3 H, Magnesium 2.2, Total Bilirubin 0.3, Direct Bilirubin 0.3, AST 83 H, ALT 46, Alkaline Phosphatase 67, Total Protein 5.6 L, Albumin 2.5 L, PT 10.8, INR 0.99, CBC w Diff NO MAN DIFF REQ, RBC 3.61 L, MCV 86.8, MCH 29.0, MCHC 33.5, RDW 13.4, MPV 9.6, Gran % 72.4, Lymphocytes % 15.0 L, Monocytes % 11.9 H, Eosinophils % 0.3, Basophils % 0.4, Absolute Granulocytes 9.0 H, Absolute Lymphocytes 1.9, Absolute Monocytes 1.5 H, Absolute Eosinophils 0, Absolute Basophils 0.1, ANCA Pending Microbiology 09/10 1430 BODY FLUID: Body Fluid Culture - RECD 09/10 1430 BODY FLUID: Gram Stain - RECD Assessment/Plan Assessment: A: 37 yo M pmhx of LE swelling, hld, and htn presenting for cough and diarrhea found to have bilateral pleural effusions and pneumonia. P: # Bilateral lower lobe pneumonia with bilateral pleural effusions CXR: Worsening bibasilar and left midlung consolidation concerning for multifocal pneumonia, Possible small pleural effusions. Urinary antigens and flu negative Chest CT: There is airspace disease involving both lungs consistent with pneumonia. There is a right pleural effusion that comprises approximately 25% of the right hemithoracic volume and a trace left effusion. Multiple relatively prominent mediastinal lymph nodes are likely reactive. -f/u thoracocentesis studies -Discontinue antibiotics if negative for exudative effusion -f/u sputum cx -Blood cultures growing gram-positive cocci seen 1 of 2 bottles, continue to monitor -f/u pulm recommendations -trc nebs #Bilateral LE edema ProBNP 2170 Pt has missed 2 days of home lasix Cardiology does not believe it is cardiac related -Follow cardiology recommendations -obtain echo results -monitor renal function -assess and give lasix as needed # LUCA on CKD Bun/cr 42/2.6 -> 52/3.1 -> 63/3.2 CK 2832 Hemoglobin A1c 6.2 Calcium 7.7, phosphorus 5.3, magnesium 2.2 Renal US: Bilaterally normal size kidneys are seen without obvious cortical atrophy or hydronephrosis. Dilated bladder. Patient was unable to void and post void residual could not be assessed. Please correlate clinically regarding patient's ability to void and exclude underlying functional outlet obstruction/neurogenic bladder. *bladder scan q shift. straighth cath if >300 *holding lisinopril for worsening LUCA -f/u heparitits panel, ANCA, -f/u urine lytes, spot -elevated ck possibly due to statin -f/u neprhology recs -Increase sodium bicarb -Start sevelamer 800 mg with meals #diabetic ulcer R foot XR: Findings localized to the styloid process of the right foot that are consistent with chronic osteomyelitis. L foot xr: Abnormal cystic changes, spurring and sclerosis in the midfoot centered at the tarsometatarsal joints. Findings are suspicious for degenerative changes related to a Charcot joint. -Discuss with podiatry regarding issues for for MRI #hyponatremia Na 131 -> 133 -cont to monitor #hypocalcemia Low vit D levels -cont oscal #elevated AST AST 94 -> 80 -monitor LFTs #chronic medical conditions: hld, htn -cont amlodipine, atorvastatin, #DVT ppx - heparin subq #FULL CODE Problem List: 1. Hypocalcemia 2. Hyponatremia 3. Pleural effusion 4. Pneumonia 5. Acute on chronic renal insufficiency Pain Ratin Pain Location: no pain Pain Goal: Pain 4 or less Pain Plan: pain pathway Tomorrow's Labs & Rationales: cbc bep hepatitis panel
--- NOTE | 2017-09-10 11:38 | PN- Att Addend ---
See Addendum Attending Addendum Attending Brief Note Patient seen and examined, still having some difficulty breathing. Patient is scheduled for thoracentesis today. Vital Signs Date Time Temp Pulse Resp B/P B/P Pulse O2 O2 Flow FiO2 Mean Ox Delivery Rate 09/10 0847 63 188/78 09/10 0936 64 188/78 09/10 0935 64 188/78 09/10 0916 95 Nasal 2.5L Cannula 09/10 0800 94 Nasal 2.5L Cannula 09/10 0638 98.4 63 20 160/80 94 Room Air 09/10 0000 Nasal 3.0L Cannula 09/09 2227 71 138/68 09/09 2226 71 138/68 09/09 2216 98.7 71 20 138/68 92 Nasal Cannula 09/09 1919 94 Nasal 3.0L Cannula 09/09 1600 96 Nasal 3.0L Cannula 09/09 1448 98.7 84 20 140/80 92 Nasal 3.0L Cannula on exam; on exam; aox3, nad. cv; s1, s2, rrr resp; some crackles r base. abd; soft, nt, bs+ ext; 2+ edema. Laboratory Tests 09/10 09/09 0805 1605 Chemistry Sodium (137 - 145 mmol/L) 133 L Potassium (3.5 - 5.1 mmol/L) 3.9 Chloride (98 - 107 mmol/L) 105 Carbon Dioxide (22 - 30 mmol/L) 15 L Anion Gap (5 - 16) 12 BUN (9 - 20 mg/dL) 63 H Creatinine (0.7 - 1.2 mg/dL) 3.2 H Estimated GFR (>60 ml/min) 22 L BUN/Creatinine Ratio (7 - 25 %) 19.7 Hemoglobin A1c (4.2 - 5.8 %) 6.2 H Calcium (8.4 - 10.2 mg/dL) 7.7 L Phosphorus (2.5 - 4.5 mg/dL) 5.3 H Magnesium (1.6 - 2.3 mg/dL) 2.2 Total Bilirubin (0.2 - 1.3 mg/dL) 0.3 Direct Bilirubin (< 0.4 mg/dL) 0.3 AST (17 - 59 U/L) 83 H ALT (21 - 72 U/L) 46 Alkaline Phosphatase (< 127 U/L) 67 Total Protein (6.3 - 8.2 g/dL) 5.6 L Albumin (3.5 - 5.0 g/dL) 2.5 L Coagulation PT (9.4 - 12.5 SEC) 10.8 11.6 INR (0.90 - 1.17) 0.99 1.06 Hematology CBC w Diff NO MAN DIFF REQ WBC (4.8 - 10.8 /CUMM) 12.4 H RBC (4.70 - 6.10 /CUMM) 3.61 L Hgb (14.0 - 18.0 G/DL) 10.5 L Hct (42 - 52 %) 31.3 L MCV (80.0 - 94.0 FL) 86.8 MCH (27.0 - 31.0 PG) 29.0 MCHC (33.0 - 37.0 G/DL) 33.5 RDW (11.5 - 14.5 %) 13.4 Plt Count (130 - 400 /CUMM) 328 MPV (7.4 - 10.4 FL) 9.6 Gran % (42.2 - 75.2 %) 72.4 Lymphocytes % (20.5 - 51.1 %) 15.0 L Monocytes % (1.7 - 9.3 %) 11.9 H Eosinophils % (0 - 5 %) 0.3 Basophils % (0.0 - 2.0 %) 0.4 Absolute Granulocytes (1.4 - 6.5 /CUMM) 9.0 H Absolute Lymphocytes (1.2 - 3.4 /CUMM) 1.9 Absolute Monocytes (0.10 - 0.60 /CUMM) 1.5 H Absolute Eosinophils (0.0 - 0.7 /CUMM) 0 Absolute Basophils (0.0 - 0.2 /CUMM) 0.1 Immunology ANCA Pending 09/09 1435 Urines Urine Color (YEL,AMB,STR) YEL Urine Clarity (CLEAR) HAZY H Urine pH (5.0 - 8.0) 6.0 Ur Specific [place] (1.001 - 1.035) 1.025 Urine Protein (NEG,<30 MG/DL) >=300 H Urine Ketones (NEG) NEG Urine Nitrite (NEG) NEG Urine Bilirubin (NEG) NEG Urine Urobilinogen (0.1 - 1.0 EU/dl) 0.2 Ur Leukocyte Esterase (NEG) NEG Ur Microscopic SEDIMENT EXAMINED Urine RBC (0 - 5 /HPF) RARE Urine WBC (0 - 2 /HPF) RARE Urine Bacteria (NEG/NONE) PACKD H Hyaline Casts (0/LPF) 1-3 H Granular Casts (NONE /LPF) 5-10 H Urine Hemoglobin (NEG) SMALL H Urine Glucose (N MG/DL) 500 H A/P; 37-year-old male with past medical history significant for diabetes, hypertension, chronic kidney disease is admitted with community-acquired pneumonia, bilateral pleural effusion, acute on chronic renal failure, and right foot diabetic ulcer. Foot x-ray shows chronic osteoarthritis. Continue wound care. Patient to go for thoracentesis today. We'll follow-up on the fluid studies. Patient currently on antibiotics. If fluid studies showed transudative fluid, will consider stopping the antibiotics. Blood pressure not controlled, will go up on the dose of hydralazine to 100 TID (Max). Continue the rest of the meds. Please follow further nephrology recommendations. Creatinine is not improved. We need to check with nephrology to see if this is his new baseline. DVT px; Please start hep sq post thora. Will try to taper O2. D/W mother at bedside.
[2017-09-10 11:44] VITALS: BP 146/72
--- NOTE | 2017-09-10 16:13 | Discharge Summary ---
See Addendum Visit Information Visit Dates Admission Date: 09/08/17 Discharge Date: 09/14/17 Hospital Course Course Attending Physician: Lesli Byrnes MD [facility]: 37-year-old patient with past medical history of hypertension, insulin-dependent diabetes mellitus, morbid obesity, peripheral artery disease presented to [facility] ED on 09/08/2017 with fevers, chills, productive cough, malaise and loose stools, was found to have multilobar pneumonia on imaging with bilateral pleural effusions. He endorsed to positive sick contacts with his mother having pneumonia the week prior to admission. He additionally reported significant lower extremity swelling, which she reported as chronic. On presentation to the ED, he did have a right foot ulcer. Patient was admitted to general medicine floors and treated for the following:. 1. Bilateral lower lobe pneumonia. The chest x-ray obtained on 09/08/2017 revealed basilar and left mid lung consolidation, which was concerning for pneumonia. The patient was started on ceftriaxone and Zithromax for community acquired pneumonia. Given his pleural effusions, a diagnostic and therapeutic right thoracentesis was recommended by pulmonary. Given his recent 30 pound weight gain, worsening breathing symptoms and overt fluid overload and exam, congestive heart failure and volume overload differential was considered, prompting cardiology evaluation. An echocardiogram obtained and reviewed by cardiology showed preserved left ventricle are systolic function, but was evident for pulmonary hypertension with an elevated right systolic pressure. Patient was deemed not volume overloaded, and his worsening leg swelling was thought to be compounded by her amlodipine; and hence dose of amlodipine was decreased from 10 mg to 5 mg. On 09/10/2014, patient underwent right ultrasound-guided thoracentesis. This was diagnostic as well as therapeutic, subsequently, patient noticed improvement is in respiratory status. The pleural fluid results were revealing of a transudative effusion. Patient continued to feel better on IV diuresis. Patient continued to require oxygen, and will be discharged on home oxygen. Patient will require outpatient sleep study. Also the patient was evaluated by podiatry for right diabetic foot ulcer. Foot x-ray was obtained which showed chronic osteo-myelitis. Patient will remain nonweightbearing on the right foot, per podiatry. 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 Allergies: Coded Allergies: No Known Allergies (09/08/17) Disposition Summary Disposition Principal Diagnosis: Bilateral pleural effusion Acute on chronic renal failure Additional Diagnosis: Right foot diabetic ulcer. Discharge Disposition: home health services Discharge Instructions General Discharge Information Code Status: Full Code Patient's Diet: Consistent carbohydrate 1 Patient's Activity: Partially weight-bear with a 4 point walker. Follow-up with podiatry as an outpatient. Return to baseline, work with physical therapy. Follow-Up Instructions/Appts: Follow-up with primary care physician as outpatient. Please follow-up with cardiology as an outpatient. Please follow-up with neurology as an outpatient. Please maintain close follow-up with podiatry as an outpatient. Polysomnography as an outpatient. MRI foot, if recommended by podiatry as an outpatient. Medications at Discharge Discharge Medications: Stop taking the following medications: Amlodipine Besylate (Amlodipine Besylate) 10 MG TABLET ORAL DAILY Hydralazine HCl (Hydralazine HCl) 100 MG TABLET ORAL TWICE DAILY Furosemide (Lasix) 40 MG TABLET ORAL DAILY Metformin HCl (Metformin HCl) 500 MG TABLET ORAL DAILY Insulin Glargine,Hum.rec.anlog (Lantus Solostar) 100 UNIT/ML (3 ML) INSULN.PEN Inject into fatty tissue Every night Glipizide (Glipizide ER) 10 MG TAB.ER.24 ORAL DAILY Sodium Bicarbonate (Sodium Bicarbonate) 650 MG TABLET ORAL TWICE DAILY Continue taking these medications: Metoprolol Tartrate (Lopressor) 100 MG TABLET 1 Tablet ORAL TWICE DAILY Comments: Last Taken:09/14/17 Time:0800 AM Atorvastatin Calcium (Lipitor) 80 MG TABLET 1 Tablet ORAL DAILY Comments: Last Taken:09/13/17 Time:5:00 PM Lisinopril (Lisinopril) 40 MG TABLET 1 Tablet ORAL DAILY Comments: DID NOT ADMINISTER IN THE HOSPITAL Start taking the following new medications: Sodium Bicarbonate (Sodium Bicarbonate) 325 MG TABLET 4 Tablet ORAL TWICE DAILY Qty = 120 No Refills Instructions: . Comments: DID NOT ADMINISTER IN THE HOSPITAL Furosemide (Lasix) 80 MG TABLET 1 Tablet ORAL DAILY Qty = 30 No Refills Instructions: PLEASE TAKE 1 TAB (80MG DAILY). IF NEEDED PLEASE TAKE TWICE A DAY (180MG TOTAL). Comments: Last Taken:09/14/17 Time:0800 AM Sevelamer Carbonate (Renvela) 800 MG TABLET 800 Milligram ORAL WITH MEALS Qty = 90 No Refills Instructions: . Comments: Last Taken:09/14/17 Time:1200 PM Amlodipine Besylate (Amlodipine Besylate) 5 MG TABLET 5 Milligram ORAL DAILY Qty = 30 No Refills Instructions: . Comments: Last Taken:09/14/17 Time:0800 AM Hydralazine HCl (Hydralazine HCl) 50 MG TABLET 100 Milligram ORAL THREE TIMES DAILY Qty = 90 No Refills Instructions: . Comments: Last Taken:09/14/17 Time:2:00 PM Insulin Glargine,Hum.rec.anlog (Lantus Solostar) 100 UNIT/ML (3 ML) INSULN.PEN 15 Unit Inject into fatty tissue Every night Qty = 15 No Refills Instructions: PLEASE INCREASE TO 20 UNITS IF BLOOD SUGARS CONSISTENTLY >200 Comments: DID NOT ADMINISTER IN HOSPITAL Copies To: Chris Jones DO, MD,Baudilio Martinez MD,Meet Yan; Mat AVILA, Alfie Gutierrez MD Review Statement Documenting Attending: Fitz BEARD,Lesli
--- NOTE | 2017-09-10 16:19 | RADIOLOGY REPORT ---
EXAMINATION:\H\ \N\XR CHEST CLINICAL INFORMATION: Status post thoracentesis. COMPARISON: Chest x-ray most recent prior dated 09/08/2017 TECHNIQUE: Frontal view of the chest was obtained. FINDINGS: Assessment is limited due to patient's body habitus. Mild central vascular congestion. Left perihilar airspace opacity is noted again. Interval improvement in right basilar infiltrate with improved aeration right lower lung. Persistent cardiomegaly. Trace effusions cannot be excluded. No gross evidence of pneumothorax. IMPRESSION: 1. No gross evidence of pneumothorax. 2. Persistent left perihilar infiltrate suspicious may represent pneumonia in the appropriate clinical setting. 3. Improved aeration right lower lung. 4. Persistent cardiomegaly and vascular congestion.
[2017-09-10 16:34] VITALS: BP 170/98
--- NOTE | 2017-09-10 16:41 | RADIOLOGY REPORT ---
EXAMINATION: XR FOOT, LEFT CLINICAL INFORMATION: Diabetic patient with chronic edema of both feet. Evaluate midfoot for neuropathic change. COMPARISON: Contralateral right foot films dated 09/09/2017 TECHNIQUE: AP, lateral, and oblique views of the left foot. FINDINGS: As seen on the contralateral side, there is extensive soft tissue swelling overlying the dorsum of the foot and diffusely around the ankle. Findings are slightly more pronounced than on the contralateral side. The patient is status post transmetaphyseal amputation of the fifth digit. The amputated margin of the proximal phalanx of this fifth digit appears unremarkable with no suspicious lytic or destructive bone lesion or abnormal periosteal reaction seen. There are 2 small linear radiopaque foreign body seen along the posterior margin of the fifth metatarsal base, suspicious for small needle fragments. There is abnormal elongated deformity of the proximal fifth metatarsal head, similar to the contralateral side, perhaps an anatomic variant. Superimposed extensive degenerative changes seen, which involve all of the tarsometatarsal joints and the distal intertarsal joints. Findings may reflect beginnings of a Charcot joint. No definite fracture is appreciated. Degenerative changes as seen at the interphalangeal joint of the first digit. Small amount of plantar calcaneal spur is seen. No ankle joint effusion is noted. IMPRESSION: 1. Extensive soft tissue swelling seen about the ankle and foot with no plain film evidence of osteomyelitis. 2. Abnormal cystic changes, spurring and sclerosis in the midfoot centered at the tarsometatarsal joints. Findings are suspicious for degenerative changes related to a Charcot joint. 3. No acute fracture or dislocation. 4. Linear radiopaque foreign bodies seen in the soft tissues of the lateral left foot at the base of the fifth metatarsal bone. 5. 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
[2017-09-10 16:55] VITALS: BP 170/98
--- NOTE | 2017-09-10 17:21 | ULTRASOUND REPORT ---
CLINICAL HISTORY: This patient is a 37 year old male with right pleural effusion. The patient is referred to Interventional Radiology for ultrasound-guided thoracentesis. PROCEDURE: Ultrasound-guided thoracentesis. ACCESS: 6-Fr [id number] closed needle/catheter system. PHYSICIAN: Dr. Osmar Powell (attending). MEDICATIONS: 10 mL of 1% lidocaine SQ. COMPLICATIONS: None ESTIMATED BLOOD LOSS: <5 mL SPECIMENS: Sent for analysis as requested. IMPLANT: None SITE MARKING: As part of the preprocedure verification policy, a site marking procedure was initiated. Due to the nature the procedure, the insertion site could not be predetermined thus invoking the policy of exemption to site laterality and marking. Insertion site marking was performed in the procedure room in conjunction with imaging confirmation. PROCEDURE NOTE: Appropriate preprocedure medical history and imaging studies were reviewed. Informed consent was obtained from the patient prior to the procedure. During this process, the procedure and potential alternatives were explained along with the intended outcome and benefits. The risks of the procedure, including the possibility of an unsuccessful procedure, as well as the risk of not doing the procedure, were discussed. The patient was given the opportunity to ask questions regarding the procedure and appeared competent to make decisions. A signed consent form documenting this discussion was placed in the medical record. A time-out procedure was performed. The patient was brought to the ultrasound department and placed in the seated position. Ultrasound images of the right thorax were obtained to localize a moderate pleural effusion. Images were permanently saved to the record. An area of the patient's right back was prepped and draped in the standard sterile fashion. All elements of maximal sterile barrier technique followed including use of cap, mask, sterile gown, sterile gloves, a sterile full body drape and hand hygiene. Also followed skin preparation with 2% chlorhexidine for cutaneous antisepsis, and sterile ultrasound preparation with sterile gel and probe cover when applicable. 10 mL of 1% lidocaine was used to obtain local anesthesia of the skin and deeper tissues. A standard small-bore needle was introduced to sample fluid and demonstrated a safe access route. There was no evidence of traversing adjacent organs or vascular structures. A 6-Fr [id number] closed needle/catheter system was utilized for access. 1.75 L of clear yellow fluid was aspirated before drainage ceased. The catheter was removed and a sterile dressing applied. The patient tolerated the procedure well without evidence of immediate complications. FINDINGS: Moderate simple right pleural effusion. IMPRESSION: Successful right ultrasound-guided therapeutic and diagnostic thoracentesis. PLAN: 1. A postprocedure chest x-ray was ordered and will be dictated separately. 2. The patient was stable after the procedure and transferred back to her medical room with instructions after standard monitoring.
[2017-09-10 21:09] VITALS: BP 182/70
[2017-09-11 07:12] VITALS: BP 170/70
--- NOTE | 2017-09-11 07:34 | PN- Housestaff ---
Subjective Follow-up For: ?Bilateral lower lobe pneumonia with pleural effusions Lower extremity edema Hyponatremia LUCA on CKD Subjective: No acute events overnight. SOB better. Went for walk with PT and desatured to 85 % after 10 feet not on oxygen. Review of Systems Constitutional: Reports: see HPI. Objective Last 24 Hrs of Vital Signs/I&O Vital Signs Date Time Temp Pulse Resp B/P B/P Pulse O2 O2 Flow FiO2 Mean Ox Delivery Rate 09/11 1342 97.7 87 18 150/80 94 Nasal 2.0L Cannula 09/11 1338 87 150/80 09/11 1109 95 Nasal 2.0L Cannula 09/11 1026 162/70 09/11 0925 95 Nasal 2.0L Cannula 09/11 0800 Nasal 2.5L Cannula 09/11 0755 80 170/68 09/11 0755 80 170/68 09/11 0754 80 170/68 09/11 0712 98.0 61 20 170/70 95 Nasal 2.0L Cannula 09/11 0000 Nasal 2.5L Cannula 09/10 2124 182/70 09/10 2124 182/70 09/10 2109 98.6 64 18 182/70 96 09/10 1834 94 Nasal 2.0L Cannula 09/10 1655 97.9 64 20 170/98 92 09/10 1634 97.9 64 20 170/98 92 09/10 1600 92 Nasal 2.5L Cannula Intake & Output 09/11 1600 09/11 0800 09/11 0000 Intake Total 1180 300 290 Output Total 1500 1600 600 Balance -320 -1300 -310 Intake, IV 280 10 Intake, Oral 900 300 280 Output, Urine 1500 1600 600 Physical Exam General Appearance: Alert, Oriented X3, Cooperative Cardiovascular: Regular Rate, Normal S1, Normal S2 Lungs: crackles at bases b/l Abdomen: Normal Bowel Sounds, Soft, No Tenderness Extremities: 4+ LE edema Vascular: 2+ radial pulses Current Medications: Current Medications Sig/Ojzef Start time Last Medication Dose Route Stop Time Status Admin Albuterol Sulfate 3 ML BID 09/09 2200 AC 09/11 INH 1107 Amlodipine Besylate 5 MG DAILY 09/10 0900 AC 09/11 PO 0755 Atorvastatin Calcium 80 MG 1700 09/09 1700 AC 09/10 PO 1734 Azithromycin 500 MG DAILY 09/11 1107 AC 09/11 Dextrose/Water 250 ML IV 09/12 0959 1338 Azithromycin 500 MG DAILY 09/09 1000 DC 09/10 Dextrose/Water 250 ML IV 0937 Calcium/Vitamin D 500 MG DAILY 09/09 1000 AC 09/11 PO 0755 Ceftriaxone Sodium 1,000 MG DAILY 09/11 1108 AC 09/11 IV 09/12 0901 1337 Ceftriaxone Sodium 1,000 MG DAILY 09/09 1000 DC 09/10 IV 0937 Furosemide 80 MG BID 09/11 1100 AC 09/11 IV 1135 Guaifenesin 600 MG BID 09/10 1000 AC 09/11 PO 0755 Heparin Sodium 5,000 UNIT Q8H 09/11 0945 AC 09/11 (Porcine) SC 0951 Hydralazine HCl 100 MG TID 09/10 2100 AC 09/11 PO 1338 Insulin Aspart 0 TIDAC 09/09 0800 AC 09/09 SC 0837 Insulin Aspart 0 AT BEDTIME 09/08 2200 AC 09/08 CO 2155 Insulin Detemir 10 UNITS QPM 09/08 2200 AC 09/10 CO 2123 Metoprolol Tartrate 100 MG BID 09/08 2200 AC 09/11 PO 0754 Patient Medication 1 ED ONE ONE 09/11 1500 MT Teaching ED 09/11 1501 Sevelamer Carbonate 800 MG WITH MEALS 09/10 1700 AC 09/11 PO 1136 Silver Sulfadiazine 1 MARLON DAILY 09/10 1000 AC TOP Sodium Bicarbonate 1,300 MG BID 09/10 2100 AC 09/11 PO 0755 Last 24 Hrs of Lab/Bryce Results Last 24 Hrs of Labs/Mics: Laboratory Tests 09/11/17 0800: Anion Gap 11, Estimated GFR 27 L, BUN/Creatinine Ratio 25.2 H, Lactate Dehydrogenase 1008 H, CBC w Diff NO MAN DIFF REQ, RBC 3.44 L, MCV 87.2, MCH 29.4, MCHC 33.8, RDW 13.7, MPV 9.6, Gran % 66.4, Lymphocytes % 18.5 L, Monocytes % 13.5 H, Eosinophils % 1.0, Basophils % 0.6, Absolute Granulocytes 6.9 H, Absolute Lymphocytes 1.9, Absolute Monocytes 1.4 H, Absolute Eosinophils 0.1, Absolute Basophils 0.1, Hepatitis A IgM Ab NONREACTIVE, Hep Bs Antigen NONREACTIVE, Hep B Core IgM Ab Conf NONREACTIVE, Hepatitis C Antibody NONREACTIVE, HIV 1&2 Ab Western Blot Pending Microbiology 09/11 141 LOWER RESP: Respiratory Culture - ORD 09/11 141 LOWER RESP: Gram Stain - ORD Assessment/Plan Assessment: A: 37 yo M pmhx of LE swelling, hld, and htn presenting for cough and diarrhea found to have bilateral pleural effusions and pneumonia. P: # Bilateral lower lobe pneumonia with bilateral pleural effusions CXR: Worsening bibasilar and left midlung consolidation concerning for multifocal pneumonia, Possible small pleural effusions. Urinary antigens and flu negative Chest CT: There is airspace disease involving both lungs consistent with pneumonia. There is a right pleural effusion that comprises approximately 25% of the right hemithoracic volume and a trace left effusion. Multiple relatively prominent mediastinal lymph nodes are likely reactive. Thoracocentesis studies revael most likely transudative effusion -f/u pleural fluid protein -continue abx for 5 days total -IV lasix 80 BID -f/u sputum cx -Blood cultures growing staph coagulase seen 1 of 2 bottles, continue to monitor -will require outpatient sleep study -f/u pulm recommendations -trc nebs #Bilateral LE edema ProBNP 2170 Pt has missed 2 days of home lasix Cardiology does not believe it is cardiac related, most likely renal -Follow cardiology recommendations -monitor renal function -assess and give lasix as needed # LUCA on CKD Bun/cr 42/2.6 -> 52/3.1 -> 63/3.2 CK 2832 Hemoglobin A1c 6.2 Calcium 7.7, phosphorus 5.3, magnesium 2.2 Renal US: Bilaterally normal size kidneys are seen without obvious cortical atrophy or hydronephrosis. Dilated bladder. Patient was unable to void and post void residual could not be assessed. Please correlate clinically regarding patient's ability to void and exclude underlying functional outlet obstruction/neurogenic bladder. Hepatitis negative *bladder scan q shift. straighth cath if >300 *holding lisinopril for worsening LUCA -f/u ANCA,ESR,HIV -f/u urine lytes, spot -elevated ck possibly due to statin -f/u neprhology recs -Increase sodium bicarb -Start sevelamer 800 mg with meals #diabetic ulcer R foot XR: Findings localized to the styloid process of the right foot that are consistent with chronic osteomyelitis. L foot xr: Abnormal cystic changes, spurring and sclerosis in the midfoot centered at the tarsometatarsal joints. Findings are suspicious for degenerative changes related to a Charcot joint. -Discuss with podiatry regarding issues for for MRI #hyponatremia Na 131 -> 133 -cont to monitor #hypocalcemia Low vit D levels -cont oscal #elevated AST AST 94 -> 80 -monitor LFTs #chronic medical conditions: hld, htn -cont amlodipine, atorvastatin, #DVT ppx - heparin subq #FULL CODE Problem List: 1. Hypocalcemia 2. Hyponatremia 3. Pleural effusion 4. Acute on chronic renal insufficiency 5. Pneumonia Pain Ratin Pain Location: none Pain Goal: Pain 4 or less Pain Plan: pain pathway Tomorrow's Labs & Rationales: cbc bep lft
--- NOTE | 2017-09-11 08:40 | PN- Pulmonary ---
Subjective HPI/Critical Care Issues: Patient is status post thoracentesis with evidence of transudative effusion. There are minimal cells and fluid is not consistent with parapneumonic effusion. He is diuresing now 2700 mL negative but continues to have significant edema. Etiology of pleural effusion is likely related to hypoalbuminemia and profound volume overload in the setting of acute kidney injury and nephrotic syndrome with markedly decreased GFR Objective Current Medications: Current Medications Sig/Jozef Start time Last Medication Dose Route Stop Time Status Admin Albuterol Sulfate 3 ML BID 09/09 2200 AC 09/10 INH 1831 Amlodipine Besylate 5 MG DAILY 09/10 0900 AC 09/11 PO 0755 Amlodipine Besylate 10 MG DAILY 09/09 1000 DC 09/09 PO 1059 Atorvastatin Calcium 80 MG 1700 09/09 1700 AC 09/10 PO 1734 Azithromycin 500 MG DAILY 09/09 1000 DC 09/10 Dextrose/Water 250 ML IV 0937 Calcium/Vitamin D 500 MG DAILY 09/09 1000 AC 09/11 PO 0755 Ceftriaxone Sodium 1,000 MG DAILY 09/09 1000 DC 09/10 IV 0937 Guaifenesin 600 MG BID 09/10 1000 AC 09/11 PO 0755 Hydralazine HCl 100 MG TID 09/10 2100 AC 09/11 PO 0755 Hydralazine HCl 100 MG BID 09/08 2200 DC 09/10 PO 0935 Insulin Aspart 0 TIDAC 09/09 0800 AC 09/09 SC 0837 Insulin Aspart 0 AT BEDTIME 09/08 2200 AC 09/08 SC 2155 Insulin Detemir 10 UNITS QPM 09/08 2200 AC 09/10 SC 2123 Lidocaine 1 ML .STK-MED ONE 09/10 1459 DC ID 09/10 1500 Metoprolol Tartrate 100 MG BID 09/08 2200 AC 09/11 PO 0754 Sevelamer Carbonate 800 MG WITH MEALS 09/10 1700 AC 09/11 PO 0755 Silver Sulfadiazine 1 MARLON DAILY 09/10 1000 AC TOP Sodium Bicarbonate 1,300 MG BID 09/10 2100 AC 09/11 PO 0755 Sodium Bicarbonate 650 MG BID 09/08 2200 DC 09/10 PO 0936 Vital Signs & I&O Last 24 Hrs of Vitals and I&O: Vital Signs Date Time Temp Pulse Resp B/P B/P Pulse O2 O2 Flow FiO2 Mean Ox Delivery Rate 09/11 0800 Nasal 2.5L Cannula 09/11 0755 80 170/68 09/11 0755 80 170/68 09/11 0754 80 170/68 09/11 0712 98.0 61 20 170/70 95 Nasal 2.0L Cannula 09/11 0000 Nasal 2.5L Cannula 09/10 2124 182/70 09/10 2124 182/70 09/10 2109 98.6 64 18 182/70 96 09/10 1834 94 Nasal 2.0L Cannula 09/10 1655 97.9 64 20 170/98 92 09/10 1634 97.9 64 20 170/98 92 09/10 1600 92 Nasal 2.5L Cannula 09/10 1222 64 146/72 09/10 1144 64 146/72 09/10 0947 63 188/78 09/10 0936 64 188/78 09/10 0935 64 188/78 09/10 0916 95 Nasal 2.5L Cannula Intake & Output 09/11 1600 09/11 0800 09/11 0000 Intake Total 290 Output Total 1600 600 Balance -1600 -310 Intake, IV 10 Intake, Oral 280 Output, Urine 1600 600 Oxygen saturation 2 L 95% exam of his chest shows continued diminished breath sounds at both bases with occasional crackles there are no wheezes cardiac exam shows regular S1 and S2 extremities have 3+ symmetrical pitting edema Impression/Plan Impression/Plan Impression/Plan: 37-year-old gentleman with rapidly worsening renal function and nephrotic syndrome presented with hypoxic respiratory failure. Clinical picture most consistent with volume overload in view of transudative effusion. Blood cultures are likely contaminant Recommendations: Continue negative fluid balance as renal function allows. Taper FiO2 his saturations allow. Patient should have outpatient sleep study.
[2017-09-11 08:56] LABS: ABSOLUTE BASOPHIL COUNT 0.1 /CUMM (0.0-0.2); ABSOLUTE EOSINOPHIL COUNT 0.1 /CUMM (0.0-0.7); ABSOLUTE GRANULOCYTE CT 6.9 /CUMM (1.4-6.5); ABSOLUTE LYMPH COUNT 1.9 /CUMM (1.2-3.4); ABSOLUTE MONOCYTE COUNT 1.4 /CUMM (0.10-0.60); BASOPHIL % 0.6 % (0.0-2.0); GRANULOCYTE % 66.4 % (42.2-75.2); MEAN CORPUSCULAR HGB 29.4 PG (27.0-31.0); MEAN CORPUSCULAR HGB CONC 33.8 G/DL (33.0-37.0); MEAN CORPUSCULAR VOLUME 87.2 FL (80.0-94.0); MEAN PLATELET VOLUME 9.6 FL (7.4-10.4); PLATELET COUNT 322 /CUMM (130-400); RBC DISTRIBUTION WIDTH 13.7 % (11.5-14.5); RED BLOOD CELL CT 3.44 /CUMM (4.70-6.10)
[2017-09-11 10:15] LABS: WHITE BLOOD CELL COUNT 10.3 /CUMM (4.8-10.8)
[2017-09-11 10:26] VITALS: BP 162/70
--- NOTE | 2017-09-11 10:56 | PN- Att Addend ---
Attending Addendum Attending Brief Note Patient seen and examined, Still having some SOB. Still requiring O2. Pleural eff looks Transudative with current data. Vital Signs Date Time Temp Pulse Resp B/P B/P Pulse O2 O2 Flow FiO2 Mean Ox Delivery Rate 09/11 1026 162/70 09/11 0925 95 Nasal 2.0L Cannula 09/11 0800 Nasal 2.5L Cannula 09/11 0755 80 170/68 09/11 0755 80 170/68 09/11 0754 80 170/68 09/11 0712 98.0 61 20 170/70 95 Nasal 2.0L Cannula 09/11 0000 Nasal 2.5L Cannula 09/10 2124 182/70 09/10 2124 182/70 09/10 2109 98.6 64 18 182/70 96 09/10 1834 94 Nasal 2.0L Cannula 09/10 1655 97.9 64 20 170/98 92 09/10 1634 97.9 64 20 170/98 92 09/10 1600 92 Nasal 2.5L Cannula 09/10 1222 64 146/72 09/10 1144 64 146/72 on exam; aox3, nad. cv; s1, s2, rrr resp; some crackles b/l bases r>l abd; soft, nt, bs+ ext; 2+ edema. RODO wrap on left foot. Laboratory Tests 09/11 09/10 09/10 09/10 0800 1430 1430 1430 Chemistry Sodium (137 - 145 mmol/L) 135 L Potassium (3.5 - 5.1 mmol/L) 3.8 Chloride (98 - 107 mmol/L) 109 H Carbon Dioxide (22 - 30 mmol/L) 15 L Anion Gap (5 - 16) 11 BUN (9 - 20 mg/dL) 68 H Creatinine (0.7 - 1.2 mg/dL) 2.7 H Estimated GFR (>60 ml/min) 27 L BUN/Creatinine Ratio (7 - 25 %) 25.2 H Lactate Dehydrogenase (313 - 618 U/L) 1008 H Hematology CBC w Diff NO MAN DIFF REQ WBC (4.8 - 10.8 /CUMM) 10.3 RBC (4.70 - 6.10 /CUMM) 3.44 L Hgb (14.0 - 18.0 G/DL) 10.1 L Hct (42 - 52 %) 30.0 L MCV (80.0 - 94.0 FL) 87.2 MCH (27.0 - 31.0 PG) 29.4 MCHC (33.0 - 37.0 G/DL) 33.8 RDW (11.5 - 14.5 %) 13.7 Plt Count (130 - 400 /CUMM) 322 MPV (7.4 - 10.4 FL) 9.6 Gran % (42.2 - 75.2 %) 66.4 Lymphocytes % (20.5 - 51.1 %) 18.5 L Monocytes % (1.7 - 9.3 %) 13.5 H Eosinophils % (0 - 5 %) 1.0 Basophils % (0.0 - 2.0 %) 0.6 Absolute Granulocytes (1.4 - 6.5 /CUMM) 6.9 H Absolute Lymphocytes (1.2 - 3.4 /CUMM) 1.9 Lymphocytes (%) 21 Absolute Monocytes (0.10 - 0.60 /CUMM) 1.4 H Absolute Eosinophils (0.0 - 0.7 /CUMM) 0.1 Absolute Basophils (0.0 - 0.2 /CUMM) 0.1 % Normal PMNs (%) 4 Misc Hematology Test (%) Miscellaneous Phlebotomy Draw Site RT THORA Other Body Source Fluid WBC (0 - 5 /CUMM) 53 H Fld Total RBCs Counted (0 /CUMM) 59 H Fluid Glucose (mg/dL) 132 Fluid Total Protein (g/dL) Pending Fluid LDH (U/L) 251 Fluid Cholesterol (mg/dL) < 50 Pleural pH (PH) 7.37 Serology Hepatitis A IgM Ab (NONREACTIVE) Pending Hep Bs Antigen (NONREACTIVE) Pending Hep B Core IgM Ab Conf (NONREACTIVE) Pending Hepatitis C Antibody (NONREACTIVE) Pending A/P; 37-year-old male with past medical history significant for diabetes, hypertension, chronic kidney disease is admitted with community-acquired pneumonia, bilateral pleural effusion, acute on chronic renal failure, and right foot diabetic ulcer. Foot x-ray shows chronic osteoarthritis. Foot MRI was recommended by podiatry unfortunately patient could not fit on the stretcher. Fluid studies are consistent with transudative effusion. Discussed with nephrology. We'll start the patient on IV diuresis. We'll try to taper his oxygen. We'll complete a total of 5 day course of antibiotics. Continue wound care. We'll monitor his creatinine. Blood sugars in acceptable range. DVT px; hep sq.
--- NOTE | 2017-09-11 11:06 | PN- Nephrology ---
Assessment/Plan Nephrology Assessment: 1. LUCA: improving; total body volume overloaded w edema & doubt IV hypovolemia - -> favor restarting diuretics. Need to watch for retention w likely neurogenic bladder 2. CKD: mod/severe, stage 3B, due to presumed diabetic nephropathy 3. Nephrotic syndrome: presumed due to DN; will eventually need ACEI restarted 4. Met acid: vontinue po Na bicarb 5. HypoCa: prob appropriate for serum Alb; discussed phos diet restriciton ( drinking miya) Suggestion: 1. Lasix 80 mg IV q12 2. serial bladder scans - straight cath if any ? of retention 3. K supplement as needed Subjective Subjective: Cough improving Denies uremic sx Nonoliguric Objective Vital Signs and I&Os Vital Signs Date Time Temp Pulse Resp B/P B/P Pulse O2 O2 Flow FiO2 Mean Ox Delivery Rate 09/11 1026 162/70 09/11 0925 95 Nasal 2.0L Cannula 09/11 0800 Nasal 2.5L Cannula 09/11 0755 80 170/68 09/11 0755 80 170/68 09/11 0754 80 170/68 09/11 0712 98.0 61 20 170/70 95 Nasal 2.0L Cannula 09/11 0000 Nasal 2.5L Cannula 09/10 2124 182/70 09/10 2124 182/70 09/10 2109 98.6 64 18 182/70 96 09/10 1834 94 Nasal 2.0L Cannula 09/10 1655 97.9 64 20 170/98 92 09/10 1634 97.9 64 20 170/98 92 09/10 1600 92 Nasal 2.5L Cannula 09/10 1222 64 146/72 09/10 1144 64 146/72 Intake & Output 09/11 1600 09/11 0400 09/10 1600 09/10 0400 09/09 1600 09/09 0400 Intake Total 300 290 720 930 160 Output Total 800 1400 800 800 800 Balance -500 -1110 -80 -800 130 160 Intake, IV 10 280 250 10 Intake, Oral 300 280 440 680 150 Number 2 Bowel Movements Output, Urine 800 1400 800 800 800 Patient 360 lb Weight Weight Reported by Patient Measurement Method Physical Exam General Appearance: well developed/nourished, no apparent distress, alert Head: atraumatic, normal appearance Ears, Nose, Throat: normal ENT inspection Neck: normal inspection Respiratory: decreased breath sounds (L base), crackles (left) Cardiovascular: regular rate/rhythm, edema, friction rub (none) Abdomen: soft, non-tender, no organomegaly Back: normal inspection Extremities: swelling Neurologic/Psychiatric: awake, alert, oriented x 3 Skin: intact, normal color Current Medications: Current Medications Sig/Jozef Start time Last Medication Dose Route Stop Time Status Admin Albuterol Sulfate 3 ML BID 09/09 2200 AC 09/10 INH 1831 Amlodipine Besylate 5 MG DAILY 09/10 0900 AC 09/11 PO 0755 Atorvastatin Calcium 80 MG 1700 09/09 1700 AC 09/10 PO 1734 Azithromycin 500 MG DAILY 09/12 0900 UNVr Dextrose/Water 250 ML IV 09/13 0959 Azithromycin 500 MG DAILY 09/09 1000 DC 09/10 Dextrose/Water 250 ML IV 0937 Calcium/Vitamin D 500 MG DAILY 09/09 1000 AC 09/11 PO 0755 Ceftriaxone Sodium 1,000 MG DAILY 09/12 0900 UNVr IV 09/13 0901 Ceftriaxone Sodium 1,000 MG DAILY 09/09 1000 DC 09/10 IV 0937 Furosemide 80 MG BID 09/11 1100 UNVr IV Guaifenesin 600 MG BID 09/10 1000 AC 09/11 PO 0755 Heparin Sodium 5,000 UNIT Q8H 09/11 0945 AC 09/11 (Porcine) SC 0951 Hydralazine HCl 100 MG TID 09/10 2100 AC 09/11 PO 0755 Hydralazine HCl 100 MG BID 09/08 2200 DC 09/10 PO 0935 Insulin Aspart 0 TIDAC 09/09 0800 AC 09/09 SC 0837 Insulin Aspart 0 AT BEDTIME 09/08 2200 AC 09/08 SC 2155 Insulin Detemir 10 UNITS QPM 09/08 2200 AC 09/10 SC 2123 Lidocaine 1 ML .STK-MED ONE 09/10 1459 DC ID 09/10 1500 Metoprolol Tartrate 100 MG BID 09/08 2200 AC 09/11 PO 0754 Sevelamer Carbonate 800 MG WITH MEALS 09/10 1700 AC 09/11 PO 0755 Silver Sulfadiazine 1 MARLON DAILY 09/10 1000 AC TOP Sodium Bicarbonate 1,300 MG BID 09/10 2100 AC 09/11 PO 0755 Sodium Bicarbonate 650 MG BID 09/08 2200 DC 09/10 PO 0936 Results Pertinent Lab Results: Laboratory Tests 09/11 09/10 09/10 09/10 0800 1430 1430 1430 Chemistry Sodium (137 - 145 mmol/L) 135 L Potassium (3.5 - 5.1 mmol/L) 3.8 Chloride (98 - 107 mmol/L) 109 H Carbon Dioxide (22 - 30 mmol/L) 15 L Anion Gap (5 - 16) 11 BUN (9 - 20 mg/dL) 68 H Creatinine (0.7 - 1.2 mg/dL) 2.7 H Estimated GFR (>60 ml/min) 27 L BUN/Creatinine Ratio (7 - 25 %) 25.2 H Lactate Dehydrogenase (313 - 618 U/L) 1008 H Hematology CBC w Diff NO MAN DIFF REQ WBC (4.8 - 10.8 /CUMM) 10.3 RBC (4.70 - 6.10 /CUMM) 3.44 L Hgb (14.0 - 18.0 G/DL) 10.1 L Hct (42 - 52 %) 30.0 L MCV (80.0 - 94.0 FL) 87.2 MCH (27.0 - 31.0 PG) 29.4 MCHC (33.0 - 37.0 G/DL) 33.8 RDW (11.5 - 14.5 %) 13.7 Plt Count (130 - 400 /CUMM) 322 MPV (7.4 - 10.4 FL) 9.6 Gran % (42.2 - 75.2 %) 66.4 Lymphocytes % (20.5 - 51.1 %) 18.5 L Monocytes % (1.7 - 9.3 %) 13.5 H Eosinophils % (0 - 5 %) 1.0 Basophils % (0.0 - 2.0 %) 0.6 Absolute Granulocytes (1.4 - 6.5 /CUMM) 6.9 H Absolute Lymphocytes (1.2 - 3.4 /CUMM) 1.9 Lymphocytes (%) 21 Absolute Monocytes (0.10 - 0.60 /CUMM) 1.4 H Absolute Eosinophils (0.0 - 0.7 /CUMM) 0.1 Absolute Basophils (0.0 - 0.2 /CUMM) 0.1 % Normal PMNs (%) 4 Misc Hematology Test (%) Miscellaneous Phlebotomy Draw Site RT THORA Other Body Source Fluid WBC (0 - 5 /CUMM) 53 H Fld Total RBCs Counted (0 /CUMM) 59 H Fluid Glucose (mg/dL) 132 Fluid Total Protein (g/dL) Pending Fluid LDH (U/L) 251 Fluid Cholesterol (mg/dL) < 50 Pleural pH (PH) 7.37 Serology Hepatitis A IgM Ab (NONREACTIVE) Pending Hep Bs Antigen (NONREACTIVE) Pending Hep B Core IgM Ab Conf (NONREACTIVE) Pending Hepatitis C Antibody (NONREACTIVE) Pending 09/10 09/09 09/09 0805 1605 1458 Chemistry Sodium (137 - 145 mmol/L) 133 L Potassium (3.5 - 5.1 mmol/L) 3.9 Chloride (98 - 107 mmol/L) 105 Carbon Dioxide (22 - 30 mmol/L) 15 L Anion Gap (5 - 16) 12 BUN (9 - 20 mg/dL) 63 H Creatinine (0.7 - 1.2 mg/dL) 3.2 H Estimated GFR (>60 ml/min) 22 L BUN/Creatinine Ratio (7 - 25 %) 19.7 Hemoglobin A1c (4.2 - 5.8 %) 6.2 H Calcium (8.4 - 10.2 mg/dL) 7.7 L Phosphorus (2.5 - 4.5 mg/dL) 5.3 H Magnesium (1.6 - 2.3 mg/dL) 2.2 Total Bilirubin (0.2 - 1.3 mg/dL) 0.3 Direct Bilirubin (< 0.4 mg/dL) 0.3 AST (17 - 59 U/L) 83 H ALT (21 - 72 U/L) 46 Alkaline Phosphatase (< 127 U/L) 67 Total Protein (6.3 - 8.2 g/dL) 5.6 L Albumin (3.5 - 5.0 g/dL) 2.5 L Coagulation PT (9.4 - 12.5 SEC) 10.8 11.6 INR (0.90 - 1.17) 0.99 1.06 Hematology CBC w Diff NO MAN DIFF REQ WBC (4.8 - 10.8 /CUMM) 12.4 H RBC (4.70 - 6.10 /CUMM) 3.61 L Hgb (14.0 - 18.0 G/DL) 10.5 L Hct (42 - 52 %) 31.3 L MCV (80.0 - 94.0 FL) 86.8 MCH (27.0 - 31.0 PG) 29.0 MCHC (33.0 - 37.0 G/DL) 33.5 RDW (11.5 - 14.5 %) 13.4 Plt Count (130 - 400 /CUMM) 328 MPV (7.4 - 10.4 FL) 9.6 Gran % (42.2 - 75.2 %) 72.4 Lymphocytes % (20.5 - 51.1 %) 15.0 L Monocytes % (1.7 - 9.3 %) 11.9 H Eosinophils % (0 - 5 %) 0.3 Basophils % (0.0 - 2.0 %) 0.4 Absolute Granulocytes (1.4 - 6.5 /CUMM) 9.0 H Absolute Lymphocytes (1.2 - 3.4 /CUMM) 1.9 Absolute Monocytes (0.10 - 0.60 /CUMM) 1.5 H Absolute Eosinophils (0.0 - 0.7 /CUMM) 0 Absolute Basophils (0.0 - 0.2 /CUMM) 0.1 Immunology ANCA Pending Urines Ur Random Creatinine Cancelled Ur Random Sodium Cancelled Ur Random Potassium Cancelled Fraction Sodium Excret Cancelled 09/09 09/09 1435 0900 Chemistry Sodium (137 - 145 mmol/L) 131 L Potassium (3.5 - 5.1 mmol/L) 4.1 Chloride (98 - 107 mmol/L) 104 Carbon Dioxide (22 - 30 mmol/L) 16 L Anion Gap (5 - 16) 11 BUN (9 - 20 mg/dL) 52 H Creatinine (0.7 - 1.2 mg/dL) 3.1 H Estimated GFR (>60 ml/min) 23 L BUN/Creatinine Ratio (7 - 25 %) 16.8 Total Bilirubin (0.2 - 1.3 mg/dL) 0.2 Direct Bilirubin (< 0.4 mg/dL) 0.2 AST (17 - 59 U/L) 80 H ALT (21 - 72 U/L) 45 Alkaline Phosphatase (< 127 U/L) 67 Creatine Kinase (55 - 170 U/L) 2832 H Total Protein (6.3 - 8.2 g/dL) 5.5 L Albumin (3.5 - 5.0 g/dL) 2.4 L Hematology CBC w Diff NO MAN DIFF REQ WBC (4.8 - 10.8 /CUMM) 6.3 RBC (4.70 - 6.10 /CUMM) 3.61 L Hgb (14.0 - 18.0 G/DL) 10.4 L Hct (42 - 52 %) 31.6 L MCV (80.0 - 94.0 FL) 87.7 MCH (27.0 - 31.0 PG) 28.8 MCHC (33.0 - 37.0 G/DL) 32.9 L RDW (11.5 - 14.5 %) 13.4 Plt Count (130 - 400 /CUMM) 294 MPV (7.4 - 10.4 FL) 9.2 Gran % (42.2 - 75.2 %) 79.6 H Lymphocytes % (20.5 - 51.1 %) 10.1 L Monocytes % (1.7 - 9.3 %) 10.2 H Eosinophils % (0 - 5 %) 0 Basophils % (0.0 - 2.0 %) 0.1 Absolute Granulocytes (1.4 - 6.5 /CUMM) 5.0 Absolute Lymphocytes (1.2 - 3.4 /CUMM) 0.6 L Absolute Monocytes (0.10 - 0.60 /CUMM) 0.6 Absolute Eosinophils (0.0 - 0.7 /CUMM) 0 Absolute Basophils (0.0 - 0.2 /CUMM) 0 Urines Urine Color (YEL,AMB,STR) YEL Urine Clarity (CLEAR) HAZY H Urine pH (5.0 - 8.0) 6.0 Ur Specific [place] (1.001 - 1.035) 1.025 Urine Protein (NEG,<30 MG/DL) >=300 H Urine Ketones (NEG) NEG Urine Nitrite (NEG) NEG Urine Bilirubin (NEG) NEG Urine Urobilinogen (0.1 - 1.0 EU/dl) 0.2 Ur Leukocyte Esterase (NEG) NEG Ur Microscopic SEDIMENT EXAMINED Urine RBC (0 - 5 /HPF) RARE Urine WBC (0 - 2 /HPF) RARE Urine Bacteria (NEG/NONE) PACKD H Hyaline Casts (0/LPF) 1-3 H Granular Casts (NONE /LPF) 5-10 H Urine Hemoglobin (NEG) SMALL H Urine Glucose (N MG/DL) 500 H 04/10 04/10 04/10 2220 2100 1520 Chemistry Sodium (137 - 145 mmol/L) Cancelled 131 L Potassium (3.5 - 5.1 mmol/L) 4.0 Chloride (98 - 107 mmol/L) 105 Carbon Dioxide (22 - 30 mmol/L) 14 L Anion Gap (5 - 16) 12 BUN (9 - 20 mg/dL) 42 H Creatinine (0.7 - 1.2 mg/dL) 2.6 H Estimated GFR (>60 ml/min) 28 L BUN/Creatinine Ratio (7 - 25 %) 16.2 Glucose (65 - 99 mg/dL) 119 H Lactic Acid (0.7 - 2.1 mmol/L) 0.9 0.5 L Calcium (8.4 - 10.2 mg/dL) 7.9 L Total Bilirubin (0.2 - 1.3 mg/dL) 0.5 AST (17 - 59 U/L) 94 H ALT (21 - 72 U/L) 42 Alkaline Phosphatase (< 127 U/L) 70 Troponin I (<0.11 ng/ml) 0.04 [id number] Pept (<125 pg/mL) 2170 H Total Protein (6.3 - 8.2 g/dL) 5.7 L Albumin (3.5 - 5.0 g/dL) 2.6 L Globulin (1.9 - 4.2 gm/dL) 3.1 Albumin/Globulin Ratio (1.1 - 2.2 %) 0.8 L 25-OH Vitamin D Total (30 - 100 ng/ml) 15.8 L Hematology CBC w Diff NO MAN DIFF REQ WBC (4.8 - 10.8 /CUMM) 9.2 RBC (4.70 - 6.10 /CUMM) 3.77 L Hgb (14.0 - 18.0 G/DL) 11.1 L Hct (42 - 52 %) 33.0 L MCV (80.0 - 94.0 FL) 87.6 MCH (27.0 - 31.0 PG) 29.6 MCHC (33.0 - 37.0 G/DL) 33.8 RDW (11.5 - 14.5 %) 14.0 Plt Count (130 - 400 /CUMM) 288 MPV (7.4 - 10.4 FL) 9.6 Gran % (42.2 - 75.2 %) 88.3 H Lymphocytes % (20.5 - 51.1 %) 7.0 L Monocytes % (1.7 - 9.3 %) 4.4 Eosinophils % (0 - 5 %) 0.1 Basophils % (0.0 - 2.0 %) 0.2 Absolute Granulocytes (1.4 - 6.5 /CUMM) 8.1 H Absolute Lymphocytes (1.2 - 3.4 /CUMM) 0.6 L Absolute Monocytes (0.10 - 0.60 /CUMM) 0.4 Absolute Eosinophils (0.0 - 0.7 /CUMM) 0 Absolute Basophils (0.0 - 0.2 /CUMM) 0 09/08 1225 Chemistry Sodium Cancelled Potassium Cancelled Chloride Cancelled Carbon Dioxide Cancelled Anion Gap Cancelled BUN Cancelled Creatinine Cancelled BUN/Creatinine Ratio Cancelled Glucose Cancelled Calcium Cancelled Total Bilirubin Cancelled AST Cancelled ALT Cancelled Alkaline Phosphatase Cancelled [id number]-Cnkelxijazg Pept Cancelled Total Protein Cancelled Albumin Cancelled Globulin Cancelled Albumin/Globulin Ratio Cancelled Imaging/Other Studies: CXR: 1. No gross evidence of pneumothorax. 2. Persistent left perihilar infiltrate suspicious may represent pneumonia in the appropriate clinical setting. 3. Improved aeration right lower lung. 4. Persistent cardiomegaly and vascular congestion.
--- NOTE | 2017-09-11 12:40 | Event Note ---
Event Note Event Note: LDH elevated ratio consistant with transudate would obtain HIV status with infiltrates and increased LDH obtain sputum culture by inducement and ESR
[2017-09-11 13:42] VITALS: BP 150/80
[2017-09-11 21:00] VITALS: BP 170/88
--- NOTE | 2017-09-11 22:04 | PN- Podiatry ---
Subjective Subjective: Pt seen and evaluated at bedside with family present for f/u on a superficial bullous lesion on the plantar lateral right midfoot. Pt was XRed b/l and has questionable Charcot vs. OA changes. Objective Vital Signs and I&Os Vital Signs Date Time Temp Pulse Resp B/P B/P Pulse O2 O2 Flow FiO2 Mean Ox Delivery Rate 09/111 70 170/88 09/11 2100 97.9 70 18 170/88 96 Nasal 1.0L Cannula 09/11 1935 94 Nasal 2.0L Cannula 09/11 1600 Nasal 1.0L Cannula 09/11 1342 97.7 87 18 150/80 94 Nasal 2.0L Cannula 09/11 1338 87 150/80 09/11 1109 95 Nasal 2.0L Cannula 09/11 1026 162/70 09/11 0925 95 Nasal 2.0L Cannula 09/11 0800 Nasal 2.5L Cannula 09/11 0755 80 170/68 09/11 0755 80 170/68 09/11 0754 80 170/68 09/11 0712 98.0 61 20 170/70 95 Nasal 2.0L Cannula 09/11 0000 Nasal 2.5L Cannula Intake & Output 09/11 1600 09/11 0800 09/11 0000 09/10 1600 09/10 0800 09/10 0000 Intake Total 1180 300 290 720 Output Total 3300 9331 741 1594 Balance -2120 -1300 -310 720 -1600 Intake, IV 280 10 280 Intake, Oral 900 300 280 440 Output, Urine 3300 2936 778 9475 Physical Exam: Neurovascular status unchanged. +4 BLE pitting edema. Bullous plantar-lateral right midfoot lesion continues to epithelialize. No erythema, no fluctuance, no malodor, no crepitus, no purulence. 5/5 muscle power. Results Last 48 Hours of Labs: Laboratory Tests 09/11 09/11 09/11 09/10 1800 1445 0800 1430 Chemistry Sodium (137 - 145 mmol/L) 135 L Potassium (3.5 - 5.1 mmol/L) 3.8 Chloride (98 - 107 mmol/L) 109 H Carbon Dioxide (22 - 30 mmol/L) 15 L Anion Gap (5 - 16) 11 BUN (9 - 20 mg/dL) 68 H Creatinine (0.7 - 1.2 mg/dL) 2.7 H Estimated GFR (>60 ml/min) 27 L BUN/Creatinine Ratio (7 - 25 %) 25.2 H Lactate Dehydrogenase (313 - 618 U/L) 1008 H Hematology CBC w Diff NO MAN DIFF REQ WBC (4.8 - 10.8 /CUMM) 10.3 RBC (4.70 - 6.10 /CUMM) 3.44 L Hgb (14.0 - 18.0 G/DL) 10.1 L Hct (42 - 52 %) 30.0 L MCV (80.0 - 94.0 FL) 87.2 MCH (27.0 - 31.0 PG) 29.4 MCHC (33.0 - 37.0 G/DL) 33.8 RDW (11.5 - 14.5 %) 13.7 Plt Count (130 - 400 /CUMM) 322 MPV (7.4 - 10.4 FL) 9.6 Gran % (42.2 - 75.2 %) 66.4 Lymphocytes % (20.5 - 51.1 %) 18.5 L Monocytes % (1.7 - 9.3 %) 13.5 H Eosinophils % (0 - 5 %) 1.0 Basophils % (0.0 - 2.0 %) 0.6 Absolute Granulocytes (1.4 - 6.5 /CUMM) 6.9 H Absolute Lymphocytes (1.2 - 3.4 /CUMM) 1.9 Absolute Monocytes (0.10 - 0.60 /CUMM) 1.4 H Absolute Eosinophils (0.0 - 0.7 /CUMM) 0.1 Absolute Basophils (0.0 - 0.2 /CUMM) 0.1 ESR Westergren Pending Other Body Source Pleural pH (PH) 7.37 Serology Hepatitis A IgM Ab (NONREACTIVE) NONREACTIVE Hep Bs Antigen (NONREACTIVE) NONREACTIVE Hep B Core IgM Ab Conf (NONREACTIVE) NONREACTIVE Hepatitis C Antibody (NONREACTIVE) NONREACTIVE HIV 1&2 Ab Western Blot (NONREACTIVE) NONREACTIVE Urines Ur Random Creatinine (mg/dL) 39.2 Ur Random Sodium (30 - 90 mmol/L) 47 Ur Random Potassium (mmol/L) 8.9 Fraction Sodium Excret (<1% %) 2.4 H 09/10 09/10 09/10 1430 1430 0805 Chemistry Sodium (137 - 145 mmol/L) 133 L Potassium (3.5 - 5.1 mmol/L) 3.9 Chloride (98 - 107 mmol/L) 105 Carbon Dioxide (22 - 30 mmol/L) 15 L Anion Gap (5 - 16) 12 BUN (9 - 20 mg/dL) 63 H Creatinine (0.7 - 1.2 mg/dL) 3.2 H Estimated GFR (>60 ml/min) 22 L BUN/Creatinine Ratio (7 - 25 %) 19.7 Hemoglobin A1c (4.2 - 5.8 %) 6.2 H Calcium (8.4 - 10.2 mg/dL) 7.7 L Phosphorus (2.5 - 4.5 mg/dL) 5.3 H Magnesium (1.6 - 2.3 mg/dL) 2.2 Total Bilirubin (0.2 - 1.3 mg/dL) 0.3 Direct Bilirubin (< 0.4 mg/dL) 0.3 AST (17 - 59 U/L) 83 H ALT (21 - 72 U/L) 46 Alkaline Phosphatase (< 127 U/L) 67 Total Protein (6.3 - 8.2 g/dL) 5.6 L Albumin (3.5 - 5.0 g/dL) 2.5 L Coagulation PT (9.4 - 12.5 SEC) 10.8 INR (0.90 - 1.17) 0.99 Hematology CBC w Diff NO MAN DIFF REQ WBC (4.8 - 10.8 /CUMM) 12.4 H RBC (4.70 - 6.10 /CUMM) 3.61 L Hgb (14.0 - 18.0 G/DL) 10.5 L Hct (42 - 52 %) 31.3 L MCV (80.0 - 94.0 FL) 86.8 MCH (27.0 - 31.0 PG) 29.0 MCHC (33.0 - 37.0 G/DL) 33.5 RDW (11.5 - 14.5 %) 13.4 Plt Count (130 - 400 /CUMM) 328 MPV (7.4 - 10.4 FL) 9.6 Gran % (42.2 - 75.2 %) 72.4 Lymphocytes % (20.5 - 51.1 %) 15.0 L Monocytes % (1.7 - 9.3 %) 11.9 H Eosinophils % (0 - 5 %) 0.3 Basophils % (0.0 - 2.0 %) 0.4 Absolute Granulocytes (1.4 - 6.5 /CUMM) 9.0 H Absolute Lymphocytes (1.2 - 3.4 /CUMM) 1.9 Lymphocytes (%) 21 Absolute Monocytes (0.10 - 0.60 /CUMM) 1.5 H Absolute Eosinophils (0.0 - 0.7 /CUMM) 0 Absolute Basophils (0.0 - 0.2 /CUMM) 0.1 % Normal PMNs (%) 4 Misc Hematology Test (%) Immunology ANCA (NEGATIVE) NEGATIVE Miscellaneous Phlebotomy Draw Site RT THORA Other Body Source Fluid WBC (0 - 5 /CUMM) 53 H Fld Total RBCs Counted (0 /CUMM) 59 H Fluid Glucose (mg/dL) 132 Fluid Total Protein (g/dL) Pending Fluid LDH (U/L) 251 Fluid Cholesterol (mg/dL) < 50 Assessment/Plan Assessment/Plan 37 y/o male with superficial plantar lateral bullous neuropathic lesion; with no clinical or radiographic signs of acute osteomyelitis; with significant degenerative changes of the tarsometatarsal joints BLE right worse than left, possibly early neuropathic changes; with a foreign body in the left hindfoot without acute reaction. Pt seen and evaluated SSD dressing + Adaptic + dry sterile dressing applied to right foot XR b/l foot reviewed and findings discussed w/patient and family. Tarsometatarsal joint changes may be disproportionate OA for his age given his substantial comorbidities vs early neuropathic changes. Pt denies clinical signs of early Charcot during my history taking, and this may be monitored over a matter of weeks as an outpatient in the wound care center. No intervention during this admission at this time. Will also monitor foreign body inclusion in the same fashion. Pt reports he has known about the object in his foot for a long time, and we will consider removing it on an elective basis once the patient is more stable with his more substantial problems resolved. Will continue to f/u on patient during this admission Core Measures Venous Thromboembolism VTE Risk Factors Acute Medical Illness No Mechanical VTE Prophylaxis d/t Other No VTE Pharm Prophylaxis d/t NA PharmProphylax ordered
[2017-09-12 06:27] VITALS: BP 160/80
--- NOTE | 2017-09-12 08:54 | PN- Housestaff ---
See Addendum Subjective Follow-up For: ?Bilateral lower lobe pneumonia with pleural effusions Lower extremity edema Hyponatremia LUCA on CKD Subjective: No acute events. Patient states that he is breathing better. Review of Systems Constitutional: Reports: see HPI. Objective Last 24 Hrs of Vital Signs/I&O Vital Signs Date Time Temp Pulse Resp B/P B/P Pulse O2 O2 Flow FiO2 Mean Ox Delivery Rate 09/12 1606 Nasal 1.0L Cannula 09/12 1439 98.0 75 20 120/70 09/12 1437 98.0 75 20 120/70 09/12 1419 98.0 75 20 120/70 95 Room Air 09/12 0947 99.5 62 20 160/80 09/12 0943 99.5 62 20 160/80 09/12 0846 96 Nasal 1.0L Cannula 09/12 0627 99.5 62 20 160/80 95 Nasal 2.0L Cannula 09/12 0000 96 Nasal 1.0L Cannula 09/11 2121 70 170/88 09/11 2100 97.9 70 18 170/88 96 Nasal 1.0L Cannula 09/11 1935 94 Nasal 2.0L Cannula Intake & Output 09/12 1600 09/12 0800 09/12 0000 Intake Total 650 1250 Output Total 800 1800 2000 Balance -800 -1150 -750 Intake, IV 250 Intake, Oral 650 1000 Number 1 Bowel Movements Output, Urine 800 1800 2000 Patient 360 lb Weight Physical Exam General Appearance: Alert, Oriented X3, Cooperative, No Acute Distress Cardiovascular: Regular Rate, Normal S1, Normal S2 Lungs: mid to lower base crackles Abdomen: Normal Bowel Sounds, Soft, No Tenderness Extremities: 4+ LE edema Vascular: 2+ radial pulses Current Medications: Current Medications Sig/Jozef Start time Last Medication Dose Route Stop Time Status Admin Albuterol Sulfate 3 ML BID 09/09 2200 AC 09/12 INH 0844 Amlodipine Besylate 5 MG DAILY 09/10 0900 AC 09/12 PO 0947 Atorvastatin Calcium 80 MG 1700 09/09 1700 AC 09/12 PO 1649 Azithromycin 500 MG DAILY 09/11 1107 DC 09/12 Dextrose/Water 250 ML IV 09/12 0959 0942 Calcium/Vitamin D 500 MG DAILY 09/09 1000 AC 09/12 PO 1438 Ceftriaxone Sodium 1,000 MG DAILY 09/11 1108 DC 09/12 IV 09/12 0901 0943 Furosemide 80 MG BID 09/11 1100 AC 09/12 IV 0943 Guaifenesin 600 MG BID 09/10 1000 AC 09/12 PO 0943 Heparin Sodium 5,000 UNIT Q8 09/12 0600 AC 09/12 (Porcine) SC 1439 Heparin Sodium 5,000 UNIT Q8H 09/11 0945 DC 09/11 (Porcine) SC 1743 Hydralazine HCl 100 MG TID 09/10 2100 AC 09/12 PO 1439 Insulin Aspart 0 TIDAC 09/09 0800 AC 09/12 SC 1649 Insulin Aspart 0 AT BEDTIME 09/08 2200 AC 09/08 SC 2155 Insulin Detemir 10 UNITS QPM 09/08 2200 AC 09/11 SC 2118 Metoprolol Tartrate 100 MG BID 09/08 2200 AC 09/12 PO 1437 Sevelamer Carbonate 800 MG WITH MEALS 09/10 1700 AC 09/12 PO 1649 Silver Sulfadiazine 1 MARLON DAILY 09/10 1000 AC 09/12 TOP 0948 Sodium Bicarbonate 1,300 MG BID 09/10 2100 AC 09/12 PO 0942 Last 24 Hrs of Lab/Bryce Results Last 24 Hrs of Labs/Mics: Laboratory Tests 09/12/17 0715: Anion Gap 10, Estimated GFR 34 L, BUN/Creatinine Ratio 28.2 H, Total Bilirubin 0.5, Direct Bilirubin 0.5 H, AST 46, ALT 40, Alkaline Phosphatase 69, Total Protein 5.8 L, Albumin 2.3 L, CBC w Diff NO MAN DIFF REQ, RBC 3.34 L, MCV 86.4, MCH 29.4, MCHC 34.0, RDW 13.3, MPV 9.5, Gran % 69.5, Lymphocytes % 17.9 L , Monocytes % 9.9 H, Eosinophils % 1.9, Basophils % 0.8, Absolute Granulocytes 6.2, Absolute Lymphocytes 1.6, Absolute Monocytes 0.9 H, Absolute Eosinophils 0.2, Absolute Basophils 0.1 09/11/17 1800: Ur Random Creatinine 39.2, Ur Random Sodium 47, Ur Random Potassium 8.9, Fraction Sodium Excret 2.4 H Assessment/Plan Assessment: A: 37 yo M pmhx of LE swelling, hld, and htn presenting for cough and diarrhea found to have bilateral pleural effusions and pneumonia. P: #?Bilateral lower lobe pneumonia vs fluid overload from CKD with bilateral pleural effusions CXR: Worsening bibasilar and left midlung consolidation concerning for multifocal pneumonia, Possible small pleural effusions. Urinary antigens and flu negative Chest CT: There is airspace disease involving both lungs consistent with pneumonia. There is a right pleural effusion that comprises approximately 25% of the right hemithoracic volume and a trace left effusion. Multiple relatively prominent mediastinal lymph nodes are likely reactive. Thoracocentesis studies revael most likely transudative effusion -nocturnal O2 sleep study per pulm -f/u pleural fluid protein -continue abx for 5 days total -IV lasix 80 BID -f/u sputum cx -Blood cultures growing staph coagulase negative seen 1 of 2 bottles, continue to monitor -will require outpatient sleep study -f/u pulm recommendations -trc nebs #Bilateral LE edema ProBNP 2170 Pt has missed 2 days of home lasix Cardiology does not believe it is cardiac related, most likely renal -Follow cardiology recommendations -monitor renal function -assess and give lasix as needed # LUCA on CKD Bun/cr 42/2.6 -> 63/3.2 -> 62/2.2 CK 2832 Hemoglobin A1c 6.2 Calcium 7.7, phosphorus 5.3, magnesium 2.2 Renal US: Bilaterally normal size kidneys are seen without obvious cortical atrophy or hydronephrosis. Dilated bladder. Patient was unable to void and post void residual could not be assessed. Please correlate clinically regarding patient's ability to void and exclude underlying functional outlet obstruction/neurogenic bladder. Hepatitis negative FeNa 2.4. Urine creatinine, sodium, potassium normal Anka negative, HIV negative, ESR 95 *bladder scan q shift. straighth cath if >300 *holding lisinopril for worsening LUCA -elevated ck possibly due to statin -f/u neprhology recs -Increase sodium bicarb -cont sevelamer 800 mg with meals #diabetic ulcer R foot XR: Findings localized to the styloid process of the right foot that are consistent with chronic osteomyelitis. L foot xr: Abnormal cystic changes, spurring and sclerosis in the midfoot centered at the tarsometatarsal joints. Findings are suspicious for degenerative changes related to a Charcot joint. -Discuss with podiatry regarding issues for for MRI #hyponatremia - resolving Na 131 -> 138 -cont to monitor #hypocalcemia Low vit D levels -cont oscal #elevated AST AST 94 -> normal range -possibly 2/2 to hepatic congestion #chronic medical conditions: hld, htn -cont amlodipine, atorvastatin, #DVT ppx - heparin subq #FULL CODE Problem List: 1. Hypocalcemia 2. Hyponatremia 3. Pleural effusion 4. Acute on chronic renal insufficiency 5. Pneumonia Pain Ratin Pain Location: none Pain Goal: Pain 4 or less Pain Plan: pain pathway Tomorrow's Labs & Rationales: bep
[2017-09-12 09:19] LABS: ABSOLUTE BASOPHIL COUNT 0.1 /CUMM (0.0-0.2); ABSOLUTE EOSINOPHIL COUNT 0.2 /CUMM (0.0-0.7); ABSOLUTE GRANULOCYTE CT 6.2 /CUMM (1.4-6.5); ABSOLUTE LYMPH COUNT 1.6 /CUMM (1.2-3.4); ABSOLUTE MONOCYTE COUNT 0.9 /CUMM (0.10-0.60); BASOPHIL % 0.8 % (0.0-2.0); EOSINOPHIL % 1.9 % (0-5); GRANULOCYTE % 69.5 % (42.2-75.2); HEMATOCRIT 28.8 % (42-52); MEAN CORPUSCULAR HGB 29.4 PG (27.0-31.0); MEAN CORPUSCULAR VOLUME 86.4 FL (80.0-94.0); MEAN PLATELET VOLUME 9.5 FL (7.4-10.4); RBC DISTRIBUTION WIDTH 13.3 % (11.5-14.5); RED BLOOD CELL CT 3.34 /CUMM (4.70-6.10); WHITE BLOOD CELL COUNT 8.9 /CUMM (4.8-10.8)
[2017-09-12 10:15] LABS: PLATELET COUNT 368 /CUMM (130-400)
[2017-09-12 14:19] VITALS: BP 120/70
--- NOTE | 2017-09-12 14:57 | PN- Pulmonary ---
Subjective HPI/Critical Care Issues: Doing better Diuresis ongoing Objective Current Medications: Current Medications Sig/Jozef Start time Last Medication Dose Route Stop Time Status Admin Albuterol Sulfate 3 ML BID 09/09 2200 AC 09/12 INH 0844 Amlodipine Besylate 5 MG DAILY 09/10 0900 AC 09/12 PO 0947 Atorvastatin Calcium 80 MG 1700 09/09 1700 AC 09/11 PO 1745 Azithromycin 500 MG DAILY 09/11 1107 DC 09/12 Dextrose/Water 250 ML IV 09/12 0959 0942 Calcium/Vitamin D 500 MG DAILY 09/09 1000 AC 09/12 PO 1438 Ceftriaxone Sodium 1,000 MG DAILY 09/11 1108 DC 09/12 IV 09/12 0901 0943 Furosemide 80 MG BID 09/11 1100 AC 09/12 IV 0943 Guaifenesin 600 MG BID 09/10 1000 AC 09/12 PO 0943 Heparin Sodium 5,000 UNIT Q8 09/12 0600 AC 09/12 (Porcine) SC 1439 Heparin Sodium 5,000 UNIT Q8H 09/11 0945 DC 09/11 (Porcine) SC 1743 Hydralazine HCl 100 MG TID 09/10 2100 AC 09/12 PO 1439 Insulin Aspart 0 TIDAC 09/09 0800 AC 09/12 SC 1435 Insulin Aspart 0 AT BEDTIME 09/08 2200 AC 09/08 SC 2155 Insulin Detemir 10 UNITS QPM 09/08 2200 AC 09/11 SC 2118 Metoprolol Tartrate 100 MG BID 09/08 2200 AC 09/12 PO 1437 Patient Medication 1 ED ONE ONE 09/11 1500 DC 09/11 Teaching ED 09/11 1501 1745 Sevelamer Carbonate 800 MG WITH MEALS 09/10 1700 AC 09/12 PO 1436 Silver Sulfadiazine 1 MARLON DAILY 09/10 1000 AC 09/12 TOP 0948 Sodium Bicarbonate 1,300 MG BID 09/10 2100 AC 09/12 PO 0942 Vital Signs & I&O Last 24 Hrs of Vitals and I&O: Vital Signs Date Time Temp Pulse Resp B/P B/P Pulse O2 O2 Flow FiO2 Mean Ox Delivery Rate 09/12 1439 98.0 75 20 120/70 09/12 1437 98.0 75 20 120/70 09/12 1419 98.0 75 20 120/70 95 Room Air 09/12 0947 99.5 62 20 160/80 09/12 0943 99.5 62 20 160/80 09/12 0846 96 Nasal 1.0L Cannula 09/12 0627 99.5 62 20 160/80 95 Nasal 2.0L Cannula 09/12 0000 96 Nasal 1.0L Cannula 09/11 2121 70 170/88 09/11 2100 97.9 70 18 170/88 96 Nasal 1.0L Cannula 09/11 1935 94 Nasal 2.0L Cannula 09/11 1600 Nasal 1.0L Cannula Intake & Output 09/12 1600 09/12 0800 09/12 0000 Intake Total 650 1250 Output Total 800 1800 1999 Balance -800 -1150 -750 Intake, IV 250 Intake, Oral 650 1000 Number 1 Bowel Movements Output, Urine 800 1800 2000 Patient 360 lb Weight Impression/Plan Impression/Plan Impression/Plan: 37-year-old gentleman with chronic kidney disease and nephrotic syndrome presents with volume overload. He remains afebrile with normal white count. Effusion is prob transudative due to total body fluid overload due to nephrotic syndrome Prob OHV LUCA with nephrotic syndrome no sig pna REc Cont current rx cont diuresis per renal Will follow Can order nocturnal oxymetry to rule out cyclical desat
[2017-09-12 22:32] VITALS: BP 180/80
[2017-09-13 06:08] VITALS: BP 160/74
[2017-09-13 08:43] LABS: ABSOLUTE BASOPHIL COUNT 0.1 /CUMM (0.0-0.2); ABSOLUTE EOSINOPHIL COUNT 0.3 /CUMM (0.0-0.7); ABSOLUTE GRANULOCYTE CT 5.9 /CUMM (1.4-6.5); ABSOLUTE LYMPH COUNT 1.8 /CUMM (1.2-3.4); ABSOLUTE MONOCYTE COUNT 0.7 /CUMM (0.10-0.60); BASOPHIL % 0.9 % (0.0-2.0); EOSINOPHIL % 3.4 % (0-5); GRANULOCYTE % 66.8 % (42.2-75.2); HEMATOCRIT 30.2 % (42-52); MEAN CORPUSCULAR HGB 29.3 PG (27.0-31.0); MEAN CORPUSCULAR HGB CONC 33.7 G/DL (33.0-37.0); MEAN CORPUSCULAR VOLUME 86.9 FL (80.0-94.0); MEAN PLATELET VOLUME 9.1 FL (7.4-10.4); PLATELET COUNT 453 /CUMM (130-400); RBC DISTRIBUTION WIDTH 13.4 % (11.5-14.5); RED BLOOD CELL CT 3.48 /CUMM (4.70-6.10); WHITE BLOOD CELL COUNT 8.8 /CUMM (4.8-10.8)
--- NOTE | 2017-09-13 10:34 | PN- Housestaff ---
Beto BEARD,[facility] 09/13/17 1034: Subjective Follow-up For: ?Bilateral lower lobe pneumonia with pleural effusions Lower extremity edema Hyponatremia LUCA on CKD Diffuse edema 2/2 to CKD Subjective: No acute events overnight. SOB improved. Review of Systems Constitutional: Reports: see HPI. Objective Last 24 Hrs of Vital Signs/I&O Vital Signs Date Time Temp Pulse Resp B/P B/P Pulse O2 O2 Flow FiO2 Mean Ox Delivery Rate 09/13 1428 98.5 70 20 150/75 97 Nasal Cannula 09/13 1426 98.9 65 20 160/74 09/13 0920 95 Nasal 1.0L Cannula 09/13 0905 98.9 65 20 160/74 09/13 0903 98.9 65 20 160/74 09/13 0901 98.9 65 20 160/74 09/13 0800 95 Nasal 1.0L Cannula 09/13 0608 98.9 65 20 160/74 96 Nasal 1.0L Cannula 09/13 0140 96 Nasal 1.0L Cannula 09/13 0000 96 Nasal 1.0L Cannula 09/12 2232 98.4 66 20 180/80 96 09/12 2027 180/80 09/12 202 180/80 09/12 1606 Nasal 1.0L Cannula Intake & Output 09/13 1600 09/13 0800 09/13 0000 Intake Total 860 240 160 Output Total 450 Balance 410 240 160 Intake, IV 20 Intake, Oral 860 240 140 Output, Urine 450 Physical Exam General Appearance: Alert, Oriented X3, Cooperative, No Acute Distress Cardiovascular: Regular Rate, Normal S1, Normal S2 Lungs: basilar crackles Abdomen: Normal Bowel Sounds, Soft, No Tenderness Extremities: 2+ radial pulses, 4+ LE edema Current Medications: Current Medications Sig/Jozef Start time Last Medication Dose Route Stop Time Status Admin Albuterol Sulfate 3 ML BID 09/09 2200 AC 09/13 INH 0920 Amlodipine Besylate 5 MG DAILY 09/10 0900 AC 09/13 PO 0901 Atorvastatin Calcium 80 MG 1700 09/09 1700 AC 09/12 PO 1649 Calcium/Vitamin D 500 MG DAILY 09/09 1000 AC 09/13 PO 0901 Furosemide 80 MG BID 09/11 1100 AC 09/13 IV 0904 Guaifenesin 600 MG BID 09/10 1000 AC 09/13 PO 0902 Heparin Sodium 5,000 UNIT Q8 09/12 0600 AC 09/13 (Porcine) SC 1426 Hydralazine HCl 100 MG TID 09/10 2100 AC 09/13 PO 1426 Insulin Aspart 0 TIDAC 09/09 0800 AC 09/13 SC 1200 Insulin Aspart 0 AT BEDTIME 09/08 2200 AC 09/08 SC 215 Insulin Detemir 10 UNITS QPM 09/08 2200 AC 09/12 SC 202 Metoprolol Tartrate 100 MG BID 09/08 2200 AC 09/13 PO 0905 Sevelamer Carbonate 800 MG WITH MEALS 09/10 1700 AC 09/13 PO 1200 Silver Sulfadiazine 1 MARLON DAILY 09/10 1000 AC 09/13 TOP 0904 Sodium Bicarbonate 1,300 MG BID 09/10 2100 AC 09/13 PO 0901 Last 24 Hrs of Lab/Bryce Results Last 24 Hrs of Labs/Mics: Laboratory Tests 09/13/17 0713: Anion Gap 11, Estimated GFR 38 L, BUN/Creatinine Ratio 27.0 H, CBC w Diff NO MAN DIFF REQ, RBC 3.48 L, MCV 86.9, MCH 29.3, MCHC 33.7, RDW 13.4, MPV 9.1, Gran % 66.8, Lymphocytes % 20.4 L, Monocytes % 8.5, Eosinophils % 3.4, Basophils % 0.9, Absolute Granulocytes 5.9, Absolute Lymphocytes 1.8, Absolute Monocytes 0.7 H, Absolute Eosinophils 0.3, Absolute Basophils 0.1 Assessment/Plan Assessment: A: 37 yo M pmhx of LE swelling, hld, and htn presenting for cough and diarrhea found to have bilateral pleural effusions and pneumonia. P: #?Bilateral lower lobe pneumonia vs fluid overload from CKD with bilateral pleural effusions CXR: Worsening bibasilar and left midlung consolidation concerning for multifocal pneumonia, Possible small pleural effusions. Urinary antigens and flu negative Chest CT: There is airspace disease involving both lungs consistent with pneumonia. There is a right pleural effusion that comprises approximately 25% of the right hemithoracic volume and a trace left effusion. Multiple relatively prominent mediastinal lymph nodes are likely reactive. Thoracocentesis studies revael most likely transudative effusion -nocturnal O2 sleep study per pulm -f/u pleural fluid protein -continue abx for 5 days total -IV lasix 80 BID -f/u sputum cx -Blood cultures growing staph coagulase negative seen 1 of 2 bottles, continue to monitor -will require outpatient sleep study -f/u pulm recommendations -trc nebs #Bilateral LE edema ProBNP 2170 Pt has missed 2 days of home lasix Cardiology does not believe it is cardiac related, most likely renal -Follow cardiology recommendations -monitor renal functio -cont lasix as noted above # LUCA on CKD Bun/cr 42/2.6 -> 63/3.2 -> 50/2.0 CK 2832 Hemoglobin A1c 6.2 Calcium 7.7, phosphorus 5.3, magnesium 2.2 Renal US: Bilaterally normal size kidneys are seen without obvious cortical atrophy or hydronephrosis. Dilated bladder. Patient was unable to void and post void residual could not be assessed. Please correlate clinically regarding patient's ability to void and exclude underlying functional outlet obstruction/neurogenic bladder. Hepatitis negative FeNa 2.4. Urine creatinine, sodium, potassium normal Anka negative, HIV negative, ESR 95 *bladder scan q shift. straighth cath if >300 *holding lisinopril for worsening LUCA -elevated ck possibly due to statin -f/u neprhology recs -Increase sodium bicarb -cont sevelamer 800 mg with meals #diabetic ulcer R foot XR: Findings localized to the styloid process of the right foot that are consistent with chronic osteomyelitis. L foot xr: Abnormal cystic changes, spurring and sclerosis in the midfoot centered at the tarsometatarsal joints. Findings are suspicious for degenerative changes related to a Charcot joint. -Discuss with podiatry regarding issues for for MRI #hyponatremia - resolving Na 131 -> 139 -cont to monitor #hypocalcemia Low vit D levels -cont oscal #elevated AST AST 94 -> normal range -possibly 2/2 to hepatic congestion #chronic medical conditions: hld, htn -cont amlodipine, atorvastatin, #DVT ppx - heparin subq #FULL CODE Problem List: 1. Hypocalcemia 2. Hyponatremia 3. Pleural effusion 4. Acute on chronic renal insufficiency 5. Edema Pain Ratin Pain Location: none Pain Goal: Pain 4 or less Pain Plan: pain pathway Tomorrow's Labs & Rationales: Davie Coleman MD 09/13/17 1408: Attending Review Statement Attending Statement Attending MD Statement: examined this patient, discuss w/resident/PA/FILM SPLICER, agreed w/resident/PA/FILM SPLICER, reviewed EMR data (avail), amended to note Attending Assessment/Plan: The patient was seen and discussed with house staff. Respiratory status improving. Patient notes a decrease in fluid mobilization. Will continue Lasix and follow I/O's. Agree with current care.
--- NOTE | 2017-09-13 12:22 | PN- Podiatry ---
Surgical Brief Attending Note Brief Attending Note: Patient was seen at bedside today. Patient had a clean dry and intact dressing placed by the nursing staff at my direction. Patient is significant decrease in erythema in both lower extremities compared to when I last seen him 2 days ago. From a podiatric standpoint he is clear for discharge, and he will follow up in the wound care center weekly on Thursdays during my normal hours, where he has agreed to be closely monitored. He has otherwise declined open bone biopsy of the fifth metatarsal to confirm chronic osteomyelitis despite my reporting the radiographic suspicion to him. Once he is more medically stabilized, we will revisit interventions for the possible early neuropathic changes he has in the tarsometatarsal joints bilaterally.
--- NOTE | 2017-09-13 12:34 | PN- Pulmonary ---
Subjective HPI/Critical Care Issues: Little better Workup ongoing Had overnight oximetry on 1 L not done on room air but did not show any cyclical desaturation Objective Current Medications: Current Medications Sig/Jozef Start time Last Medication Dose Route Stop Time Status Admin Albuterol Sulfate 3 ML BID 09/09 2200 AC 09/13 INH 0920 Amlodipine Besylate 5 MG DAILY 09/10 0900 AC 09/13 PO 0901 Atorvastatin Calcium 80 MG 1700 09/09 1700 AC 09/12 PO 1649 Calcium/Vitamin D 500 MG DAILY 09/09 1000 AC 09/13 PO 0901 Furosemide 80 MG BID 09/11 1100 AC 09/13 IV 0904 Guaifenesin 600 MG BID 09/10 1000 AC 09/13 PO 0902 Heparin Sodium 5,000 UNIT Q8 09/12 0600 AC 09/13 (Porcine) SC 0516 Hydralazine HCl 100 MG TID 09/10 2100 AC 09/13 PO 0903 Insulin Aspart 0 TIDAC 09/09 0800 AC 09/13 SC 1200 Insulin Aspart 0 AT BEDTIME 09/08 2200 AC 09/08 SC 2155 Insulin Detemir 10 UNITS QPM 09/08 2200 AC 09/12 SC 2027 Metoprolol Tartrate 100 MG BID 09/08 2200 AC 09/13 PO 0905 Sevelamer Carbonate 800 MG WITH MEALS 09/10 1700 AC 09/13 PO 1200 Silver Sulfadiazine 1 MARLON DAILY 09/10 1000 AC 09/13 TOP 0904 Sodium Bicarbonate 1,300 MG BID 09/10 2100 AC 09/13 PO 0901 Vital Signs & I&O Last 24 Hrs of Vitals and I&O: Vital Signs Date Time Temp Pulse Resp B/P B/P Pulse O2 O2 Flow FiO2 Mean Ox Delivery Rate 09/13 0905 98.9 65 20 160/74 09/13 0903 98.9 65 20 160/74 09/13 0901 98.9 65 20 160/74 09/13 0608 98.9 65 20 160/74 96 Nasal 1.0L Cannula 09/13 0140 96 Nasal 1.0L Cannula 09/13 0000 96 Nasal 1.0L Cannula 09/12 2232 98.4 66 20 180/80 96 09/12 2027 180/80 09/12 2026 180/80 09/12 1606 Nasal 1.0L Cannula 09/12 1439 98.0 75 20 120/70 09/12 1437 98.0 75 20 120/70 09/12 1419 98.0 75 20 120/70 95 Room Air Intake & Output 09/13 1600 09/13 0800 09/13 0000 Intake Total 240 160 Output Total 450 Balance -450 240 160 Intake, IV 20 Intake, Oral 240 140 Output, Urine 450 Impression/Plan Impression/Plan Impression/Plan: 37-year-old gentleman with chronic kidney disease and nephrotic syndrome presents with volume overload. He remains afebrile with normal white count. Effusion is prob transudative due to total body fluid overload due to nephrotic syndrome Prob OHV LUCA with nephrotic syndrome no sig pna Nocturnal oximetry done yesterday did not show any cyclical desaturation. However this was done on 1 L nasal cannula REc Cont current rx cont diuresis per renal Will follow Continue to wean off oxygen Podiatry note reviewed
[2017-09-13 14:28] VITALS: BP 150/75
[2017-09-13 22:22] VITALS: BP 180/60
[2017-09-14 06:22] VITALS: BP 156/70
--- NOTE | 2017-09-14 08:46 | PN- Pulmonary ---
Subjective HPI/Critical Care Issues: Patient shortness of breath has improved he is comfortable on room air room air oxygen saturation reported at 94% Objective Current Medications: Current Medications Sig/Jozef Start time Last Medication Dose Route Stop Time Status Admin Albuterol Sulfate 3 ML BID 09/09 2200 AC 09/13 INH 1945 Amlodipine Besylate 5 MG DAILY 09/10 0900 AC 09/13 PO 0901 Atorvastatin Calcium 80 MG 1700 09/09 1700 AC 09/13 PO 1723 Calcium/Vitamin D 500 MG DAILY 09/09 1000 AC 09/13 PO 0901 Furosemide 80 MG BID 09/11 1100 AC 09/13 IV 2111 Guaifenesin 600 MG BID 09/10 1000 AC 09/13 PO 211 Heparin Sodium 5,000 UNIT Q8 09/12 0600 AC 09/14 (Porcine) SC 05 Hydralazine HCl 100 MG TID 09/10 2100 AC 09/13 PO 211 Insulin Aspart 0 TIDAC 09/09 0800 AC 09/13 SC 1200 Insulin Aspart 0 AT BEDTIME 09/08 2200 AC 09/08 SC 215 Insulin Detemir 10 UNITS QPM 09/08 2200 AC 09/13 SC 211 Metoprolol Tartrate 100 MG BID 09/08 2200 AC 09/13 PO 211 Sevelamer Carbonate 800 MG WITH MEALS 09/10 1700 AC 09/13 PO 1723 Silver Sulfadiazine 1 MARLON DAILY 09/10 1000 AC 09/13 TOP 0904 Sodium Bicarbonate 1,300 MG BID 09/10 2100 AC 09/13 PO 211 Vital Signs & I&O Last 24 Hrs of Vitals and I&O: Vital Signs Date Time Temp Pulse Resp B/P B/P Pulse O2 O2 Flow FiO2 Mean Ox Delivery Rate 09/14 621 98.2 80 20 156/70 94 Nasal Cannula 09/14 0000 Room Air 09/13 2221 99.4 72 20 180/60 93 09/14 2111 72 180/60 09/14 2111 72 180/60 09/13 1945 97 Nasal 1.0L Cannula 09/13 1600 97 Nasal 1.0L Cannula 09/138 98.5 70 20 150/75 97 Nasal Cannula 09/13 1426 98.9 65 20 160/74 09/13 0920 95 Nasal 1.0L Cannula 09/13 0905 98.9 65 20 160/74 09/13 0903 98.9 65 20 160/74 09/13 0901 98.9 65 20 160/74 Intake & Output 09/14 1600 09/14 0800 09/14 0000 Intake Total 560 1000 Output Total 2750 1999 Balance -2190 -1000 Intake, Oral 560 1000 Number 0 Bowel Movements Output, Urine 2750 1999 Oxygen saturation 94% exam of his chest shows somewhat diminished breath sounds at the bases there are no wheezes or crackles cardiac exam shows regular S1 and S2 lower extremity edema is somewhat diminished Impression/Plan Impression/Plan Impression/Plan: 37-year-old gentleman with nephrotic syndrome minute with profound volume overload transudative effusion. Respiratory status has improved with diuresis. Recommendations: Continue negative fluid balance as renal function allows. Assess overnight oximetry on room air Patient should have outpatient sleep study. Repeat chest x-ray tomorrow
[2017-09-14] MEDS ORDERED: HYDRALAZINE HCL50 M1 PO ×2 (09:27→15:08)
[2017-09-14] MEDS ORDERED: SODIUM BICARBO325 M1 PO ×2 (09:27→15:08)
[2017-09-14] MEDS ORDERED: AMLODIPINE BESYL5 M1 PO ×2 (09:27→15:08)
[2017-09-14] MEDS ORDERED: RENVELA800 M1 PO ×2 (09:27→15:08)
--- NOTE | 2017-09-14 09:57 | PN- Housestaff ---
Subjective Follow-up For: ?Bilateral lower lobe pneumonia with pleural effusions Lower extremity edema Hyponatremia LUCA on CKD Diffuse edema 2/2 to CKD Subjective: No acute events overnight. SOB improved. Review of Systems Constitutional: Reports: see HPI. Objective Last 24 Hrs of Vital Signs/I&O Vital Signs Date Time Temp Pulse Resp B/P B/P Pulse O2 O2 Flow FiO2 Mean Ox Delivery Rate 09/14 1459 150/70 09/14 1417 98.1 72 18 150/60 95 Room Air 09/14 0855 94 Room Air 09/14 0838 80 150/70 09/14 0836 80 156/70 09/14 0836 80 156/70 09/14 0800 94 Room Air 09/14 0622 98.2 80 20 156/70 94 Nasal Cannula 09/14 0000 Room Air 09/13 2222 99.4 72 20 180/60 93 09/13 2112 72 180/60 09/13 2112 72 180/60 09/13 1946 97 Nasal 1.0L Cannula Intake & Output 09/14 1600 09/14 0800 09/14 0000 Intake Total 6661 129 8156 Output Total 1000 2750 1999 Balance 200 -2190 -1000 Intake, Oral 1061 198 4537 Number 0 Bowel Movements Output, Urine 1000 2750 1999 Physical Exam General Appearance: Alert, Oriented X3, Cooperative Cardiovascular: Regular Rate, Normal S1, Normal S2 Lungs: basilar crackles Abdomen: Normal Bowel Sounds, Soft, No Tenderness Extremities: 4+ LE edema. Vascular: 2+ radial pulses Current Medications: Current Medications Sig/Jozef Start time Last Medication Dose Route Stop Time Status Admin Albuterol Sulfate 3 ML BID 09/09 2200 AC 09/14 INH 0858 Amlodipine Besylate 5 MG DAILY 09/10 0900 AC 09/14 PO 0836 Atorvastatin Calcium 80 MG 1700 09/09 1700 AC 09/13 PO 1723 Calcium/Vitamin D 500 MG DAILY 09/09 1000 AC 09/14 PO 0836 Furosemide 80 MG BID 09/11 1100 AC 09/14 IV 0839 Guaifenesin 600 MG BID 09/10 1000 AC 09/14 PO 0836 Heparin Sodium 5,000 UNIT Q8 09/12 0600 AC 09/14 (Porcine) SC 1459 Hydralazine HCl 100 MG TID 09/10 2100 AC 09/14 PO 1459 Insulin Aspart 0 TIDAC 09/09 0800 AC 09/13 SC 1200 Insulin Aspart 0 AT BEDTIME 09/08 2200 AC 09/08 SC 2155 Insulin Detemir 10 UNITS QPM 09/08 2200 AC 09/13 SC 2113 Metoprolol Tartrate 100 MG BID 09/08 2200 AC 09/14 PO 0838 Sevelamer Carbonate 800 MG WITH MEALS 09/10 1700 AC 09/14 PO 1214 Silver Sulfadiazine 1 MARLON DAILY 09/10 1000 AC 09/14 TOP 0839 Sodium Bicarbonate 1,300 MG BID 09/10 2100 AC 09/14 PO 0835 Last 24 Hrs of Lab/Bryce Results Last 24 Hrs of Labs/Mics: Laboratory Tests 09/14/17 0755: Anion Gap 11, Estimated GFR 40 L, BUN/Creatinine Ratio 24.2 Assessment/Plan Assessment: A: 37 yo M pmhx of LE swelling, hld, and htn presenting for cough and diarrhea found to have bilateral pleural effusions and pneumonia. P: #?Bilateral lower lobe pneumonia vs fluid overload from CKD with bilateral pleural effusions CXR: Worsening bibasilar and left midlung consolidation concerning for multifocal pneumonia, Possible small pleural effusions. Urinary antigens and flu negative Chest CT: There is airspace disease involving both lungs consistent with pneumonia. There is a right pleural effusion that comprises approximately 25% of the right hemithoracic volume and a trace left effusion. Multiple relatively prominent mediastinal lymph nodes are likely reactive. Thoracocentesis studies revael most likely transudative effusion -nocturnal O2 sleep normal on 1L. will require outpatient sleep study -discharge with lasix 80daily, increase to 160 if needed -f/u pleural fluid protein -continue abx for 5 days total -f/u sputum cx -Blood cultures growing staph coagulase negative seen 1 of 2 bottles, continue to monitor -f/u pulm recommendations -trc nebs #Bilateral LE edema ProBNP 2170 Pt has missed 2 days of home lasix Cardiology does not believe it is cardiac related, most likely renal -Follow cardiology recommendations -monitor renal function -cont lasix as noted above # LUCA on CKD Bun/cr 42/2.6 -> 63/3.2 -> Cr 1.9 CK 2832 Hemoglobin A1c 6.2 Calcium 7.7, phosphorus 5.3, magnesium 2.2 Renal US: Bilaterally normal size kidneys are seen without obvious cortical atrophy or hydronephrosis. Dilated bladder. Patient was unable to void and post void residual could not be assessed. Please correlate clinically regarding patient's ability to void and exclude underlying functional outlet obstruction/neurogenic bladder. Hepatitis negative FeNa 2.4. Urine creatinine, sodium, potassium normal Anka negative, HIV negative, ESR 95 *bladder scan q shift. straighth cath if >300 *holding lisinopril for worsening LUCA -restarted lisinopril for discharge. f/u with renal in 2-3 weeks with labs before appointment -elevated ck possibly due to statin -f/u neprhology recs -cont increased sodium bicarb -cont sevelamer 800 mg with meals #diabetic ulcer R foot XR: Findings localized to the styloid process of the right foot that are consistent with chronic osteomyelitis. L foot xr: Abnormal cystic changes, spurring and sclerosis in the midfoot centered at the tarsometatarsal joints. Findings are suspicious for degenerative changes related to a Charcot joint. -discharge with home PT, O2, and walker -Discuss with podiatry regarding issues for for MRI #hyponatremia - resolving Na 131 -> 139 -cont to monitor #hypocalcemia Low vit D levels -cont oscal #elevated AST AST 94 -> normal range -possibly 2/2 to hepatic congestion #chronic medical conditions: hld, htn -cont amlodipine, atorvastatin, #DVT ppx - heparin subq #FULL CODE Problem List: 1. Edema 2. Hypocalcemia 3. Hyponatremia 4. Pleural effusion 5. Acute on chronic renal insufficiency 6. Pneumonia Pain Ratin Pain Location: none Pain Goal: Pain 4 or less Pain Plan: pathway Tomorrow's Labs & Rationales: none
--- NOTE | 2017-09-14 11:23 | PN- Att Addend ---
Attending Addendum Attending Brief Note Patient seen and examined, overall improved. Oxygen requirement has also improved. Breathing is better. Patient now on room air at rest. Vital Signs Date Time Temp Pulse Resp B/P B/P Pulse O2 O2 Flow FiO2 Mean Ox Delivery Rate 09/14 0855 94 Room Air 09/14 0838 80 150/70 09/14 0836 80 156/70 09/14 0836 80 156/70 09/14 0622 98.2 80 20 156/70 94 Nasal Cannula 09/14 0000 Room Air 09/13 2222 99.4 72 20 180/60 93 09/13 2112 72 180/60 09/13 2112 72 180/60 09/13 1946 97 Nasal 1.0L Cannula 09/13 1600 97 Nasal 1.0L Cannula 09/13 1428 98.5 70 20 150/75 97 Nasal Cannula 09/13 1426 98.9 65 20 160/74 on exam; aox3, nad. cv; s1,s2, rrr resp; clear b/l abd; soft, nt, bs+ ext; 2+ edema, dressing on right foot. Laboratory Tests 09/14 0755 Chemistry Sodium (137 - 145 mmol/L) 139 Potassium (3.5 - 5.1 mmol/L) 3.9 Chloride (98 - 107 mmol/L) 109 H Carbon Dioxide (22 - 30 mmol/L) 18 L Anion Gap (5 - 16) 11 BUN (9 - 20 mg/dL) 46 H Creatinine (0.7 - 1.2 mg/dL) 1.9 H Estimated GFR (>60 ml/min) 40 L BUN/Creatinine Ratio (7 - 25 %) 24.2 A/P; 37-year-old male with past medical history significant for diabetes, hypertension, chronic kidney disease is admitted with community-acquired pneumonia, bilateral pleural effusion, acute on chronic renal failure, and right foot ulcer. Patient followed by podiatry. Cr improved and now almost back to baseline. Overall improving. Oxygen, and has improved. Patient to work with physical therapy and recommended that he O2 sat. Patient is nonweightbearing on the right foot per podiatry. He will require outpatient sleep study. We have to check with nephrology about his Lasix dose for discharge home. He has diuresed well over the weekend. Blood sugars are in acceptable range. Patient otherwise getting ready for discharge after reconfirming nephrology. Need to follow up with PT and case management regarding dispo plan.
--- NOTE | 2017-09-14 11:34 | PN- Podiatry ---
Subjective Subjective: 37-year-old male seen and evaluated with his mother at bedside for follow-up on a superficial neuropathic lesion on the plantar lateral right midfoot. Patient appears to be in good spirits, and he is anticipating discharge. Review of Systems: A 14 point review of systems was performed, and was found to be negative apart from the patient's complaints described above in the history of present illness. Objective Vital Signs and I&Os Vital Signs Date Time Temp Pulse Resp B/P B/P Pulse O2 O2 Flow FiO2 Mean Ox Delivery Rate 09/14 0855 94 Room Air 09/14 0838 80 150/70 09/14 0836 80 156/70 09/14 0836 80 156/70 09/14 0622 98.2 80 20 156/70 94 Nasal Cannula 09/14 0000 Room Air 09/13 2222 99.4 72 20 180/60 93 09/13 2112 72 180/60 09/13 2112 72 180/60 09/13 1946 97 Nasal 1.0L Cannula 09/13 1600 97 Nasal 1.0L Cannula 09/13 1428 98.5 70 20 150/75 97 Nasal Cannula 09/13 1426 98.9 65 20 160/74 Intake & Output 09/14 1600 09/14 0800 09/14 0000 09/13 1600 09/13 0800 09/13 0000 Intake Total 560 1000 860 240 160 Output Total 2750 2000 450 Balance -2190 -1000 410 240 160 Intake, IV 20 Intake, Oral 560 1000 860 240 140 Number 0 Bowel Movements Output, Urine 2750 2000 450 Physical Exam: Neurovascular status and musculoskeletal exam are unchanged. The superficial plantar lateral midfoot neuropathic lesion is almost completely epithelialized with the exception of the pinpoint area at its distal lateral aspect which has some slough dermis. Patient continues to have +4 pitting edema in both lower extremities. Current Medications: Current Medications Sig/Jozef Start time Last Medication Dose Route Stop Time Status Admin Albuterol Sulfate 3 ML BID 09/09 2200 AC 09/14 INH 0858 Amlodipine Besylate 5 MG DAILY 09/10 0900 AC 09/14 PO 0836 Atorvastatin Calcium 80 MG 1700 09/09 1700 AC 09/13 PO 1723 Calcium/Vitamin D 500 MG DAILY 09/09 1000 AC 09/14 PO 0836 Furosemide 80 MG BID 09/11 1100 AC 09/14 IV 0839 Guaifenesin 600 MG BID 09/10 1000 AC 09/14 PO 0836 Heparin Sodium 5,000 UNIT Q8 09/12 0600 AC 09/14 (Porcine) SC 0544 Hydralazine HCl 100 MG TID 09/10 2100 AC 09/14 PO 0836 Insulin Aspart 0 TIDAC 09/09 0800 AC 09/13 SC 1200 Insulin Aspart 0 AT BEDTIME 09/08 2200 AC 09/08 CA 215 Insulin Detemir 10 UNITS QPM 09/08 220 AC 09/13 SC 2113 Metoprolol Tartrate 100 MG BID 09/08 2200 AC 09/14 PO 0838 Sevelamer Carbonate 800 MG WITH MEALS 09/10 1700 AC 09/14 PO 0837 Silver Sulfadiazine 1 MARLON DAILY 09/10 1000 AC 09/14 TOP 0839 Sodium Bicarbonate 1,300 MG BID 09/10 2100 AC 09/14 PO 0835 Results Last 48 Hours of Labs: Laboratory Tests 09/14 09/13 0755 0713 Chemistry Sodium (137 - 145 mmol/L) 139 139 Potassium (3.5 - 5.1 mmol/L) 3.9 4.2 Chloride (98 - 107 mmol/L) 109 H 110 H Carbon Dioxide (22 - 30 mmol/L) 18 L 18 L Anion Gap (5 - 16) 11 11 BUN (9 - 20 mg/dL) 46 H 54 H Creatinine (0.7 - 1.2 mg/dL) 1.9 H 2.0 H Estimated GFR (>60 ml/min) 40 L 38 L BUN/Creatinine Ratio (7 - 25 %) 24.2 27.0 H Hematology CBC w Diff NO MAN DIFF REQ WBC (4.8 - 10.8 /CUMM) 8.8 RBC (4.70 - 6.10 /CUMM) 3.48 L Hgb (14.0 - 18.0 G/DL) 10.2 L Hct (42 - 52 %) 30.2 L MCV (80.0 - 94.0 FL) 86.9 MCH (27.0 - 31.0 PG) 29.3 MCHC (33.0 - 37.0 G/DL) 33.7 RDW (11.5 - 14.5 %) 13.4 Plt Count (130 - 400 /CUMM) 453 H MPV (7.4 - 10.4 FL) 9.1 Gran % (42.2 - 75.2 %) 66.8 Lymphocytes % (20.5 - 51.1 %) 20.4 L Monocytes % (1.7 - 9.3 %) 8.5 Eosinophils % (0 - 5 %) 3.4 Basophils % (0.0 - 2.0 %) 0.9 Absolute Granulocytes (1.4 - 6.5 /CUMM) 5.9 Absolute Lymphocytes (1.2 - 3.4 /CUMM) 1.8 Absolute Monocytes (0.10 - 0.60 /CUMM) 0.7 H Absolute Eosinophils (0.0 - 0.7 /CUMM) 0.3 Absolute Basophils (0.0 - 0.2 /CUMM) 0.1 Assessment/Plan Assessment/Plan 37-year-old male with a superficial neuropathic lesion of the plantar lateral aspect of the right midfoot, and questionable early Charcot changes vs OA The patient was seen and evaluated at bedside with his family. Silvadene and Adaptic dressing was applied to the right foot, and the patient's mother was educated on how to perform this daily as an outpatient. The patient will follow-up in the wound care center on a weekly basis until lesion is healed, and during this time we will also consider long-term interventions for the possibility of Charcot neuroarthropathy of the right foot. As he has tarsometatarsal changes only, he may be managed nonoperatively long- term with a custom brace. The patient is clear for discharge from a podiatric standpoint, and may partially weight-bear for now with a 4 point walker as cleared by physical therapy. The patient denies any history of erythema or disproportionate bouts of swelling in this area, and I do not believe him to have acute changes at this time based on the radiographic and clinical findings. Core Measures Venous Thromboembolism VTE Risk Factors Acute Medical Illness No Mechanical VTE Prophylaxis d/t Other No VTE Pharm Prophylaxis d/t NA PharmProphylax ordered
--- NOTE | 2017-09-14 12:16 | PN- Nephrology ---
Assessment/Plan Nephrology Assessment: Creatiine back to [facility]. Suggestion: Restart on Lisinopril 40 mg a day given high grade proteinuria. Also start Lasix 80 mg daily, which I told him he could take bid if edema worsens. Needs f/u in office in 2-3 weeks with labs before. Subjective Subjective: Patient up and walking with walker although still gets SOB. May be being discharged to[facility]. Objective Vital Signs and I&Os Vital Signs Date Time Temp Pulse Resp B/P B/P Pulse O2 O2 Flow FiO2 Mean Ox Delivery Rate 09/14 0855 94 Room Air 09/14 0838 80 150/70 09/14 0836 80 156/70 09/14 0836 80 156/70 09/14 0622 98.2 80 20 156/70 94 Nasal Cannula 09/14 0000 Room Air 09/13 2222 99.4 72 20 180/60 93 09/13 2112 72 180/60 09/13 2112 72 180/60 09/13 1946 97 Nasal 1.0L Cannula 09/13 1600 97 Nasal 1.0L Cannula 09/13 1428 98.5 70 20 150/75 97 Nasal Cannula 09/13 1426 98.9 65 20 160/74 Intake & Output 09/14 1600 09/14 0400 09/13 1600 09/13 0400 09/12 1600 09/12 0400 Intake Total 560 1000 5687 497 9066 1250 Output Total 2750 1999 450 2600 1999 Balance -2190 -1000 650 160 -1090 -750 Intake, IV 20 250 Intake, Oral 560 1000 7365 716 1254 1000 Number 0 1 Bowel Movements Output, Urine 2750 1999 450 2600 2000 Patient 360 lb Weight Physical Exam: NAD VS as above Lungs: a few rhonchi lower lobes CV:no rub Abd: nontender Exts: 2+ edema Neuro: A&O Current Medications: Current Medications Sig/Jozef Start time Last Medication Dose Route Stop Time Status Admin Albuterol Sulfate 3 ML BID 09/09 2200 AC 09/14 INH 0858 Amlodipine Besylate 5 MG DAILY 09/10 0900 AC 09/14 PO 0836 Atorvastatin Calcium 80 MG 1700 09/09 1700 AC 09/13 PO 1723 Calcium/Vitamin D 500 MG DAILY 09/09 1000 AC 09/14 PO 0836 Furosemide 80 MG BID 09/11 1100 AC 09/14 IV 0839 Guaifenesin 600 MG BID 09/10 1000 AC 09/14 PO 0836 Heparin Sodium 5,000 UNIT Q8 09/12 0600 AC 09/14 (Porcine) SC 0544 Hydralazine HCl 100 MG TID 09/10 2100 AC 09/14 PO 0836 Insulin Aspart 0 TIDAC 09/09 08 AC 09/13 SC 1200 Insulin Aspart 0 AT BEDTIME 09/08 2199 AC 09/08 SC 215 Insulin Detemir 10 UNITS QPM 09/08 220 AC 09/13 SC 2113 Metoprolol Tartrate 100 MG BID 09/08 2200 AC 09/14 PO 0838 Sevelamer Carbonate 800 MG WITH MEALS 09/10 1700 AC 09/14 PO 0837 Silver Sulfadiazine 1 MARLON DAILY 09/10 1000 AC 09/14 TOP 0839 Sodium Bicarbonate 1,300 MG BID 09/10 2099 AC 09/14 PO 0835 Results Pertinent Lab Results: Laboratory Tests 09/14 09/13 0755 0713 Chemistry Sodium (137 - 145 mmol/L) 139 139 Potassium (3.5 - 5.1 mmol/L) 3.9 4.2 Chloride (98 - 107 mmol/L) 109 H 110 H Carbon Dioxide (22 - 30 mmol/L) 18 L 18 L Anion Gap (5 - 16) 11 11 BUN (9 - 20 mg/dL) 46 H 54 H Creatinine (0.7 - 1.2 mg/dL) 1.9 H 2.0 H Estimated GFR (>60 ml/min) 40 L 38 L BUN/Creatinine Ratio (7 - 25 %) 24.2 27.0 H Hematology CBC w Diff NO MAN DIFF REQ WBC (4.8 - 10.8 /CUMM) 8.8 RBC (4.70 - 6.10 /CUMM) 3.48 L Hgb (14.0 - 18.0 G/DL) 10.2 L Hct (42 - 52 %) 30.2 L MCV (80.0 - 94.0 FL) 86.9 MCH (27.0 - 31.0 PG) 29.3 MCHC (33.0 - 37.0 G/DL) 33.7 RDW (11.5 - 14.5 %) 13.4 Plt Count (130 - 400 /CUMM) 453 H MPV (7.4 - 10.4 FL) 9.1 Gran % (42.2 - 75.2 %) 66.8 Lymphocytes % (20.5 - 51.1 %) 20.4 L Monocytes % (1.7 - 9.3 %) 8.5 Eosinophils % (0 - 5 %) 3.4 Basophils % (0.0 - 2.0 %) 0.9 Absolute Granulocytes (1.4 - 6.5 /CUMM) 5.9 Absolute Lymphocytes (1.2 - 3.4 /CUMM) 1.8 Absolute Monocytes (0.10 - 0.60 /CUMM) 0.7 H Absolute Eosinophils (0.0 - 0.7 /CUMM) 0.3 Absolute Basophils (0.0 - 0.2 /CUMM) 0.1 09/12 09/11 09/11 0715 1800 1445 Chemistry Sodium (137 - 145 mmol/L) 138 Potassium (3.5 - 5.1 mmol/L) 4.2 Chloride (98 - 107 mmol/L) 110 H Carbon Dioxide (22 - 30 mmol/L) 17 L Anion Gap (5 - 16) 10 BUN (9 - 20 mg/dL) 62 H Creatinine (0.7 - 1.2 mg/dL) 2.2 H Estimated GFR (>60 ml/min) 34 L BUN/Creatinine Ratio (7 - 25 %) 28.2 H Total Bilirubin (0.2 - 1.3 mg/dL) 0.5 Direct Bilirubin (< 0.4 mg/dL) 0.5 H AST (17 - 59 U/L) 46 ALT (21 - 72 U/L) 40 Alkaline Phosphatase (< 127 U/L) 69 Total Protein (6.3 - 8.2 g/dL) 5.8 L Albumin (3.5 - 5.0 g/dL) 2.3 L Hematology CBC w Diff NO MAN DIFF REQ WBC (4.8 - 10.8 /CUMM) 8.9 RBC (4.70 - 6.10 /CUMM) 3.34 L Hgb (14.0 - 18.0 G/DL) 9.8 L Hct (42 - 52 %) 28.8 L MCV (80.0 - 94.0 FL) 86.4 MCH (27.0 - 31.0 PG) 29.4 MCHC (33.0 - 37.0 G/DL) 34.0 RDW (11.5 - 14.5 %) 13.3 Plt Count (130 - 400 /CUMM) 368 MPV (7.4 - 10.4 FL) 9.5 Gran % (42.2 - 75.2 %) 69.5 Lymphocytes % (20.5 - 51.1 %) 17.9 L Monocytes % (1.7 - 9.3 %) 9.9 H Eosinophils % (0 - 5 %) 1.9 Basophils % (0.0 - 2.0 %) 0.8 Absolute Granulocytes (1.4 - 6.5 /CUMM) 6.2 Absolute Lymphocytes (1.2 - 3.4 /CUMM) 1.6 Absolute Monocytes (0.10 - 0.60 /CUMM) 0.9 H Absolute Eosinophils (0.0 - 0.7 /CUMM) 0.2 Absolute Basophils (0.0 - 0.2 /CUMM) 0.1 ESR Westergren (0 - 10 MM) 95 H Urines Ur Random Creatinine (mg/dL) 39.2 Ur Random Sodium (30 - 90 mmol/L) 47 Ur Random Potassium (mmol/L) 8.9 Fraction Sodium Excret (<1% %) 2.4 H
[2017-09-14] MEDS ORDERED: LASIX80 M1 PO ×2 (13:01→15:08)
--- NOTE | 2017-09-14 13:04 | Patient Discharge Instructions ---
Discharge Instructions General Discharge Information Special Instructions: Please follow up with your pcp in 1 week. Please follow up with nephrology in 2-3 weeks. Please get your labs before and fax them to your test driver. Please follow up withe the wound care center daily for podiatry. Please get a sleep study done. Please call Please follow up with your pulmnologist in 1-2 weeks. Please follow up with you weight control lecturer in 1-2 weeks. Acute Coronary Syndrome Inclusion Criteria At DC or during hospital stay patient has or had the following: ACS DIAGNOSIS No Discharge Core Measures Meds if any: Prescribed or Continued at Discharge Meds if any: NOT Prescribed or Continued at Discharge Congestive Heart Failure Inclusion Criteria At DC or during hospital stay patient has or had the following: CHF DIAGNOSIS No Discharge Core Measures Meds if any: Prescribed or Continued at Discharge Meds if any: NOT Prescribed or Continued at Discharge Cerebrovascular accident Inclusion Criteria At DC or during hospital stay patient has or had the following: CVA/TIA Diagnosis No Discharge Core Measures Meds if any: Prescribed or Continued at Discharge Meds if any: NOT Prescribed or Continued at Discharge Venous thromboembolism Inclusion Criteria VTE Diagnosis No VTE Type NONE VTE Confirmed by (Test) NONE Discharge Core Measures - Per Current guidelines, there needs to be overlap - treatment for the first 5 days of Warfarin therapy. - If discharged on Warfarin prior to 5 days of - overlap therapy, the patient will need to be - assessed for post discharge needs including - *Post discharge parental anticoagulation - *Warfarin and/or parental anticoagulation education - *Follow up date to check INR post discharge At least 5 days overlap therapy as Inpatient No Meds if any: Prescribed or Continued at Discharge Note: Overlap Therapy is Warfarin and Anticoagulant Meds if any: NOT Prescribed or Continued at Discharge
[2017-09-14] MEDS ORDERED: LANTUS SOL100 UNIT/1 SC (13:28)
[2017-09-14 14:17] VITALS: BP 150/60
[2017-09-14 14:59] VITALS: BP 150/70
--- NOTE | 2017-09-16 00:46 | Discharge Summary ---
Hospital Course Allergies: Coded Allergies: No Known Allergies (09/08/17) Discharge Instructions General Discharge Information Code Status: Full Code Medications at Discharge Discharge Medications: Stop taking the following medications: Amlodipine Besylate (Amlodipine Besylate) 10 MG TABLET ORAL DAILY Hydralazine HCl (Hydralazine HCl) 100 MG TABLET ORAL TWICE DAILY Furosemide (Lasix) 40 MG TABLET ORAL DAILY Metformin HCl (Metformin HCl) 500 MG TABLET ORAL DAILY Insulin Glargine,Hum.rec.anlog (Lantus Solostar) 100 UNIT/ML (3 ML) INSULN.PEN Inject into fatty tissue Every night Glipizide (Glipizide ER) 10 MG TAB.ER.24 ORAL DAILY Sodium Bicarbonate (Sodium Bicarbonate) 650 MG TABLET ORAL TWICE DAILY Continue taking these medications: Metoprolol Tartrate (Lopressor) 100 MG TABLET 1 Tablet ORAL TWICE DAILY Comments: Last Taken:09/14/17 Time:0800 AM Atorvastatin Calcium (Lipitor) 80 MG TABLET 1 Tablet ORAL DAILY Comments: Last Taken:09/13/17 Time:5:00 PM Lisinopril (Lisinopril) 40 MG TABLET 1 Tablet ORAL DAILY Comments: DID NOT ADMINISTER IN THE HOSPITAL Start taking the following new medications: Sodium Bicarbonate (Sodium Bicarbonate) 325 MG TABLET 4 Tablet ORAL TWICE DAILY Qty = 120 No Refills Instructions: . Comments: DID NOT ADMINISTER IN THE HOSPITAL Furosemide (Lasix) 80 MG TABLET 1 Tablet ORAL DAILY Qty = 30 No Refills Instructions: PLEASE TAKE 1 TAB (80MG DAILY). IF NEEDED PLEASE TAKE TWICE A DAY (180MG TOTAL). Comments: Last Taken:09/14/17 Time:0800 AM Sevelamer Carbonate (Renvela) 800 MG TABLET 800 Milligram ORAL WITH MEALS Qty = 90 No Refills Instructions: . Comments: Last Taken:09/14/17 Time:1200 PM Amlodipine Besylate (Amlodipine Besylate) 5 MG TABLET 5 Milligram ORAL DAILY Qty = 30 No Refills Instructions: . Comments: Last Taken:09/14/17 Time:0800 AM Hydralazine HCl (Hydralazine HCl) 50 MG TABLET 100 Milligram ORAL THREE TIMES DAILY Qty = 90 No Refills Instructions: . Comments: Last Taken:09/14/17 Time:2:00 PM Insulin Glargine,Hum.rec.anlog (Lantus Solostar) 100 UNIT/ML (3 ML) INSULN.PEN 15 Unit Inject into fatty tissue Every night Qty = 15 No Refills Instructions: PLEASE INCREASE TO 20 UNITS IF BLOOD SUGARS CONSISTENTLY >200 Comments: DID NOT ADMINISTER IN HOSPITAL
== END 2017-09-14 17:15 | DRG 139 ==
LOC: ERH 12:11 → 2NA 16:45 → ERHI 16:45 → ENRESERV 20:18 → ENTRNSPT 21:00 → EDTRNSPT 21:11 → EDTRNSPTSTS 21:11 → 2NA 21:30 → CMPTRNSPT 21:49 → 2NA 09-10 09:14 → ENPENDDIS 09-14 15:54 → DELTRNSPT 09-14 16:36 → 2NA 09-14 17:15
PROVIDERS: Emergency Medicine; Student in an Organized Health Care Education/Training Program
PROC: 0HDMXZZ Extraction of Right Foot Skin, External Approach (ICD-10-PCS; 2017-09-09)
PROC: 0W993ZZ Drainage of Right Pleural Cavity, Percutaneous Approach (ICD-10-PCS; principal; 2017-09-10)
DX: J18.9 Pneumonia, unspecified organism (principal); J96.01 Acute respiratory failure with hypoxia; N17.9 Acute kidney failure, unspecified; J91.8 Pleural effusion in other conditions classified elsewhere; E87.1 Hypo-osmolality and hyponatremia; E83.51 Hypocalcemia; E11.621 Type 2 diabetes mellitus with foot ulcer; E87.79 Other fluid overload; N18.3 Chronic kidney disease, stage 3 (moderate); L97.519 Non-pressure chronic ulcer of other part of right foot with unspecified severity; I27.20 Pulmonary hypertension, unspecified; E11.40 Type 2 diabetes mellitus with diabetic neuropathy, unspecified; E87.2 Acidosis; E11.22 Type 2 diabetes mellitus with diabetic chronic kidney disease; E66.01 Morbid (severe) obesity due to excess calories; E11.3599 Type 2 diabetes mellitus with proliferative diabetic retinopathy without macular edema, unspecified eye; Z89.422 Acquired absence of other left toe(s); I10 Essential (primary) hypertension; Z68.42 Body mass index [BMI] 45.0-49.9, adult; Z79.4 Long term (current) use of insulin; Z79.84 Long term (current) use of oral hypoglycemic drugs
CPT/HCPCS: 2NAP; 84133; 84300; 86021; 87075; 36415; 36592; 71045; 73630-LT; 73630-RT; 76775; 81001; 82436; 82570; 87040; 87070; 87389; 87449; 87450; 87804; 87804-59; 88305; 93005; 93010; 93970; 96374; 96375; 97110-GO; 97116-GO; 97162-GP; 97530-GO; J0456; J0696; J1644; J1940; J2930; J3490; J7060

== ENCOUNTER 2018-02-25 10:46 | Emergency (ER) | payer OTHER ==
[~2018-02-25] VITALS: Ht 180.3 cm; Wt 178.3 kg
[~2018-02-25 10:46] MED LIST: AMLODIPINE BESY10 M1 PO; AMLODIPINE BESYL5 M1 PO; GLIPIZIDE ER10 M1 PO; GLUCOTROL10 M1 PO; HYDRALAZINE HC100 M1 PO; HYDRALAZINE HCL50 M1 PO; LANTUS SOL100 UNIT/1 SC; LASIX40 M1 PO; LASIX80 M1 PO; LIPITOR80 M1 PO; LISINOPRIL40 M1 PO; LOPRESSOR100 M1 PO; METFORMIN HCL500 M3 PO; RENVELA800 M1 PO; SODIUM BICARBO325 M1 PO; SODIUM BICARBO650 M1 PO
[2018-02-25] MEDS ORDERED: HYDRALAZINE HC100 M1 PO (11:17)
[2018-02-25] MEDS ORDERED: ISOSORBIDE DINI10 M1 PO (11:18)
[2018-02-25] MEDS ORDERED: METFORMIN HCL500 M3 PO (11:19)
[2018-02-25] MEDS ORDERED: GLIPIZIDE ER5 M1 PO (11:19)
[2018-02-25] MEDS ORDERED: CALCITRIOL0.25 MC1 PO (11:21)
[2018-02-25] MEDS ORDERED: RENVELA800 M1 PO (11:21)
[2018-02-25] MEDS ORDERED: GLIPIZIDE ER10 M1 PO (11:22)
[2018-02-25] MEDS ORDERED: VITAMIN D250000 UNIT PO (11:22)
--- NOTE | 2018-02-25 11:26 | ED DYSPNEA/ASTHMA COMPLAINT ---
"See Addendum History of Present Illness General Chief Complaint: Dyspnea (COPD, CHF, Other) Stated Complaint: SOB Source: patient Exam Limitations: no limitations Vital Signs & Intake/Output Vital Signs & Intake/Output Vital Signs Date Time Temp Pulse Resp B/P B/P Pulse O2 O2 Flow FiO2 Mean Ox Delivery Rate 02/25 1505 97 Nasal 6.0L Cannula 02/25 1459 98.9 58 20 185/85 97 Nasal 6.0L Cannula 02/25 1055 96.0 62 20 161/65 95 Nasal 6.0L Cannula Allergies Coded Allergies: No Known Allergies (09/08/17) Reconcile Medications Amlodipine Besylate 5 MG TABLET 1 TAB PO DAILY HTN Atorvastatin Calcium (Lipitor) 80 MG TABLET 1 TAB PO DAILY Cholesterol ( Reported) Calcitriol 0.25 MCG CAPSULE 1 CAP PO MoWeFr VITAMIN SUPPORT (Reported) Ergocalciferol (Vitamin D2) (Vitamin D2) 50,000 UNIT CAPSULE 1 CAP PO QW VITAMIN SUPPORT (Reported) Furosemide (Lasix) 80 MG TABLET 1 TAB PO DAILY EDEMA PLEASE TAKE 1 TAB (80MG DAILY). IF NEEDED PLEASE TAKE TWICE A DAY (180MG TOTAL). Glipizide (Glipizide ER) 10 MG TAB.ER.24 1 TAB PO DAILY DIABETES (Reported) Hydralazine HCl 100 MG TABLET 1 TAB PO BID HEART (Reported) Insulin Glargine,Hum.rec.anlog (Lantus Solostar) 100 UNIT/ML (3 ML) INSULN.PEN 15 UNIT SC QPM DIABETES PLEASE INCREASE TO 20 UNITS IF BLOOD SUGARS CONSISTENTLY >200 Isosorbide Dinitrate 10 MG TABLET 1 TAB PO BID HEART (Reported) Lisinopril 40 MG TABLET 1 TAB PO DAILY BP (Reported) Metformin HCl 500 MG TABLET 1 TAB PO DAILY DIABETES (Reported) Metoprolol Tartrate (Lopressor) 100 MG TABLET 1 TAB PO BID HTN (Reported) Sevelamer Carbonate (Renvela) 800 MG TABLET 1 TAB PO DAILY KIDNEY (Reported) Sodium Bicarbonate 325 MG TABLET 4 TAB PO BID KIDNEY . Triage Note: PT TO ED C/O FEELING SOB X A FEW WEEKS. PT HAS PRN O2, PUT HIMSELF ON 5L NC LAST NIGHT FOR LOW RA O2 SAT. DENIES ANY PAIN. PT ON 6L NC IN TRIAGE, O2 SATS 95%. Triage Nurses Notes Reviewed? yes HPI: 37-year-old male with history of chronic kidney disease, diabetes, hypertension, history of a right pleural effusion presents with progressive shortness of breath. Symptoms been ongoing for the past month. It is associate with dyspnea on exertion. Patient describes having a chest cold with a cough. There is no mucus production. Patient has chronic lower extremity edema. Has Charcot joint in the right foot for which he wears a boot. He denies any change in the lower extremity edema. Patient denies any nausea, vomiting, palpitations or lightheadedness. Patient was seen by his risk compliance manager yesterday and there is concern for pleural effusion. Past History Travel History Traveled to [place] past 21 day No Medical History Any Pertinent Medical History? see below for history Neurological: NEUROPATHY (DIABETIC) EENT: RETINOPOTHY Cardiovascular: hypertension Respiratory: pneumonia, O2 PRN pleural effusion Gastrointestinal: NONE Hepatic: NONE Renal: STAGE 3 RENAL DISEASE Musculoskeletal: NONE Psychiatric: NONE Endocrine: DM Blood Disorders: NONE Cancer(s): NONE RADIOLOGY ADMINISTRATOR/Reproductive: NONE History of MRSA: No History of VRE: No History of CDIFF: No Surgical History Surgical History: none Psychosocial History Who do you live with Mother What is your primary language Albanian Tobacco Use: Never used ETOH Use: denies use Illicit Drug Use: denies illicit drug use Family History Family History, If Any: Relation not specified for: *No pertinent family history Hx Contributory? No Review of Systems Review of Systems Constitutional: Denies: no symptoms. EENTM: Denies: no symptoms. Respiratory: Reports: cough, orthopnea, short of breath. Denies: hemoptysis, sputum production. Cardiovascular: Reports: no symptoms, edema. GI: Denies: no symptoms. Genitourinary: Denies: no symptoms. Musculoskeletal: Denies: no symptoms. Skin: Denies: no symptoms. Neurological/Psychological: Denies: no symptoms. Hematologic/Endocrine: Denies: no symptoms. Immunologic/Allergic: Denies: no symptoms. All Other Systems: Reviewed and Negative Physical Exam Physical Exam General Appearance: well developed/nourished, no apparent distress, alert, awake Head: atraumatic, normal appearance Eyes: Bilateral: normal appearance. Neck: normal inspection, supple Respiratory: decreased breath sound over right lung base, decreased tactile fremitus Cardiovascular: regular rate/rhythm Gastrointestinal: normal bowel sounds, soft, non-tender Extremities: 4+ chronic edema bilateral lower ext Neurologic/Psych: no motor/sensory deficits, awake, alert, oriented x 3, normal mood/affect Skin: intact Core Measures ACS in differential dx? No CVA/TIA Diagnosis No Sepsis Present: No Sepsis Focused Exam Completed? No Progress Differential Diagnosis: dyspena, pleural effusion, CHF, PNA Plan of Care: Orders Procedure Date/time Status BODY FLUID GLUCOSE 02/25 162 Active PLEURAL PH (GEN) 02/25 1611 Active CULTURE,BODY FLUID 02/25 1605 Active BODY FLUID CELL COUNT 02/25 1605 Active BODY FLUID TOTAL PROTEIN 02/25 1604 Active BODY FLUID LDH 02/25 1604 Active OXYGEN SETUP (GEN) 02/25 1112 Active PARTIAL THROMBOPLASTIN TIME 02/25 111 Complete PROTHROMBIN TIME 02/25 111 Complete COMPREHENSIVE METABOLIC PANEL 02/25 111 Complete CBC WITHOUT DIFFERENTIAL 02/25 111 Complete EKG 02/25 1112 Active Laboratory Tests 02/25/18 1625: Fluid WBC Pending, Fld Total RBCs Counted Pending 02/25/18 1625: Fluid Glucose Pending, Fluid Total Protein Pending, Fluid LDH Pending 02/25/18 1605: Fluid Glucose Cancelled 02/25/18 1424: Anion Gap 8, Estimated GFR 38 L, BUN/Creatinine Ratio 12.0, Glucose 110 H, Calcium 8.8, Total Bilirubin 0.3, AST 18, ALT 26, Alkaline Phosphatase 70, Total Protein 6.2 L, Albumin 3.1 L, Globulin 3.1, Albumin/Globulin Ratio 1.0 L, PT 12.1, INR 1.11, APTT 32, CBC w Diff NO MAN DIFF REQ, RBC 3.39 L, MCV 86.3, MCH 29.2, MCHC 33.9, RDW 13.1, MPV 8.6, Gran % 72.4, Lymphocytes % 16.6 L, Monocytes % 7.4, Eosinophils % 2.8, Basophils % 0.8, Absolute Granulocytes 9.0 H, Absolute Lymphocytes 2.1, Absolute Monocytes 0.9 H, Absolute Eosinophils 0.4 , Absolute Basophils 0.1 Microbiology 02/25 1625 BODY FLUID: Body Fluid Culture - RECD 02/25 1625 BODY FLUID: Gram Stain - RECD PATIENT: ERIC STEVENS PRESENT AGE: 37 PATIENT ACCOUNT NO: [id number] : 79 LOCATION: [facility] ORDERING PHYSICIAN: Momo Choudhury MD SERVICE DATE: 02/25/18 EXAM TYPE: RAD - XRY-CHEST XRAY, TWO VIEWS EXAMINATION: XR CHEST CLINICAL INFORMATION: Shortness of breath. Dyspnea, decreased breath sounds right lung. COMPARISON: Chest 09/10/2017. TECHNIQUE: PA and lateral views (3 images) of the chest are obtained. FINDINGS: There is persistent moderate enlargement of the cardiac silhouette. There is mild vascular prominence but no overt edema. Pleural thickening along the right lateral chest wall likely represents an effusion. There is a probable moderate-sized right subpulmonic pleural effusion. Alternatively, this may represent an elevated right hemidiaphragm but this is felt to be less likely. IMPRESSION: Persistent enlargement of the cardiac silhouette. Mild vascular prominence but no overt edema. Right pleural effusion with a suspected moderate subpulmonic component. DICTATED BY: John Burris MD DATE/TIME DICTATED:02/25/181134 DIGITAL MARKETING PROJECT MANAGER:BRIANNA DATE/TIME TRANSCRIBED:02/25/181134 CONFIDENTIAL, DO NOT COPY WITHOUT APPROPRIATE AUTHORIZATION. <Electronically signed in Other Vendor System> SIGNED BY: John Burris MD 1151 37-year-old male with multiple chronic medical problems presents with progressive shortness of breath. Patient is currently requiring oxygen supplementation for normal oxygen saturation. Patient is currently on oxygen at night. Patient has required increased use of oxygen. Patient has decreased breath sounds and reduced tactile fremitus on the right. Concern for recurrent pleural effusion is highest on the differential diagnosis. According to patient , his most recent thoracentesis was a transudate likely result from his chronic kidney disease. Patient will have routine laboratory analysis, EKG, chest x- ray. Reviewed results, Discussed with nephrology. The current recommendatinos are: KCL 20 meq IV x 1 KCL 40 mEq PO Now KCL 40 mEq PO in 3-4 hours Withold lasix Continue prednisone 60 mg daily Patient counseled regarding need for admission Initial ED EKG: normal axis, normal intervals, normal p-waves, normal QRS complex, normal sinus rhythm Prior EKG: unchanged Departure Departure Disposition: STILL A PATIENT Condition: Stable Clinical Impression Primary Impression: Dyspnea Qualifiers: Dyspnea type: unspecified Qualified Code: R06.00 - Dyspnea, unspecified Secondary Impressions: Atrial fibrillation Chronic kidney disease Qualifiers: Chronic kidney disease stage: unspecified stage Qualified Code: N18.9 - Chronic kidney disease, unspecified Hypokalemia Referrals: Susu Jones DO (PCP/Family) Departure Forms: Customer Survey General Discharge Information Admission Note Spoke With: Fitz BEARD,Lesli Documentation of Exam: Documentation of any treatments & extenuating circumstances including Concerns Regarding Discharge (functional status, medication knowledge or non-compliance, living conditions, etc.) that warrant an admission rather than observation: [| Telemetry admission for monitoring for dysrhythmia, management of hypokalemia, management of nephrotic syndrome] Critical Care Note Critical Care Note Critical Care Time: non-applicable"
--- NOTE | 2018-02-25 11:51 | RADIOLOGY REPORT ---
EXAMINATION: XR CHEST CLINICAL INFORMATION: Shortness of breath. Dyspnea, decreased breath sounds right lung. COMPARISON: Chest 09/10/2017. TECHNIQUE: PA and lateral views (3 images) of the chest are obtained. FINDINGS: There is persistent moderate enlargement of the cardiac silhouette. There is mild vascular prominence but no overt edema. Pleural thickening along the right lateral chest wall likely represents an effusion. There is a probable moderate-sized right subpulmonic pleural effusion. Alternatively, this may represent an elevated right hemidiaphragm but this is felt to be less likely. IMPRESSION: Persistent enlargement of the cardiac silhouette. Mild vascular prominence but no overt edema. Right pleural effusion with a suspected moderate subpulmonic component.
[2018-02-25 14:36] LABS: ABSOLUTE BASOPHIL COUNT 0.1 /CUMM (0.0-0.2); ABSOLUTE EOSINOPHIL COUNT 0.4 /CUMM (0.0-0.7); ABSOLUTE LYMPH COUNT 2.1 /CUMM (1.2-3.4); ABSOLUTE MONOCYTE COUNT 0.9 /CUMM (0.10-0.60); BASOPHIL % 0.8 % (0.0-2.0); EOSINOPHIL % 2.8 % (0-5); GRANULOCYTE % 72.4 % (42.2-75.2); HEMATOCRIT 29.3 % (42-52); MEAN CORPUSCULAR HGB 29.2 PG (27.0-31.0); MEAN CORPUSCULAR HGB CONC 33.9 G/DL (33.0-37.0); MEAN CORPUSCULAR VOLUME 86.3 FL (80.0-94.0); MEAN PLATELET VOLUME 8.6 FL (7.4-10.4); PLATELET COUNT 416 /CUMM (130-400); RBC DISTRIBUTION WIDTH 13.1 % (11.5-14.5); RED BLOOD CELL CT 3.39 /CUMM (4.70-6.10); WHITE BLOOD CELL COUNT 12.4 /CUMM (4.8-10.8)
[2018-02-25 14:52] LABS: PT 12.1 SEC (9.4-12.5); PTT 32 SEC (25-37)
--- NOTE | 2018-02-25 16:56 | RADIOLOGY REPORT ---
EXAMINATION:\H\ \N\XR CHEST CLINICAL INFORMATION: Status post right thoracentesis COMPARISON: Same day chest x-ray at 11:23 AM TECHNIQUE: Frontal view of the chest was obtained. FINDINGS: Interval reduction in size of right-sided pleural effusion. A small residual effusion persists. No pneumothorax. IMPRESSION: No pneumothorax.
--- NOTE | 2018-02-25 16:56 | ULTRASOUND REPORT ---
PROCEDURE: Thoracentesis CLINICAL INFORMATION: Pleural Effusion COMPARISON: Same day chest x-ray TECHNIQUE: Indirect ultrasound guided thoracentesis using a 5 Polish Yueh catheter. FINDINGS: Informed consent was obtained from the patient prior to the procedure. During this process, the procedure alternatives were explained, along with the intended outcome and benefits. The risks of the procedure, as well as the risk of not doing the procedure, was discussed. The patient was given the opportunity to ask questions regarding the procedure and appeared competent to make medical decisions. A signed consent form which documents this discussion was placed in the medical record. A timeout procedure was performed. Ultrasound evaluation of the chest for pleural fluid was performed. A large pleural effusion is noted on the right side. Using standard interventional and sterile techniques, lidocaine was used to anesthetize the region. A 5 Polish Yueh catheter was introduced into the right pleural fluid using standard safety needle technique. Approximately 2 L of light yellow fluid was removed into the Vacutainer bottles. The catheter was then removed. Good hemostasis was achieved. The patient tolerated the procedure well. A sterile dressing was placed. The patient was discharged from the department in stable condition. Patient scheduled for post procedure followup x-ray. COMPLICATIONS: None. IMPRESSION: Successful ultrasound-guided thoracentesis of 2 L of fluid.
[2018-02-25 19:42] VITALS: BP 188/86
== END 2018-02-25 20:06 ==
LOC: ERH 10:46
PROVIDERS: Emergency Medicine
DX: J90 Pleural effusion, not elsewhere classified (principal); I10 Essential (primary) hypertension; N18.3 Chronic kidney disease, stage 3 (moderate); E11.9 Type 2 diabetes mellitus without complications; Z79.84 Long term (current) use of oral hypoglycemic drugs; E11.40 Type 2 diabetes mellitus with diabetic neuropathy, unspecified; H35.00 Unspecified background retinopathy
CPT/HCPCS: 87075; 71045; 71046; 93005; 93010; J3490